=== PATIENT | female | born 1950 | race Caucasian/White ===

== ENCOUNTER 2020-05-29 07:41 | Outpatient (CLI) | payer MEDICARE, SELFPAY ==
--- NOTE | ~2020-05-29 | MM_ITS ---
EXAMINATION: MM screening bertha BI w leeanne HISTORY: Screening TECHNIQUE: Craniocaudal and mediolateral oblique 3-D tomosynthesis images were obtained and synthetic 2-D images were generated. CAD analysis was submitted and interpreted. COMPARISON: Comparison to multiple prior studies sequentially, with oldest reviewed study dated 02/10. BREAST PARENCHYMAL COMPOSITION: There are scattered areas of fibroglandular density. FINDINGS: There is no evidence of suspicious mass, calcification, or architectural distortion to sugg est malignancy in either breast. There has been no suspicious interval change. IMPRESSION: 1. No mammographic evidence of malignancy. 2. Recommend routine screening mammography in one year. BI-RADS Category 1: Negative Reviewed, dictated and finalized at location A. 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
== END 2020-05-29 07:42 | disposition home or self-care (01) ==
LOC: ANHIMG 07:47
PROVIDERS: PCP Nurse Practitioner Adult Health; Visit Provider Nurse Practitioner Adult Health
DX: Z12.31 Encounter for screening mammogram for malignant neoplasm of breast (principal)
CPT/HCPCS: 77063; 77067

== ENCOUNTER 2022-01-01 13:38 | Outpatient (CLI) | payer MEDICARE, SELFPAY ==
--- NOTE | ~2022-01-01 | MM_ITS ---
EXAMINATION: MM screening berhta BI w leeanne HISTORY: Screening mammogram TECHNIQUE: Craniocaudal and mediolateral oblique 3-D tomosynthesis images were obtained and synthetic 2-D images were generated. CAD analysis was submitted and interpreted. COMPARISON: 05/29/2020, 05/06/2019, 04/22/2018 bilateral screening mammogram examinations BREAST PARENCHYMAL COMPOSITION: The breasts are almost entirely fatty. FINDINGS: Scattered bilateral benign calcifications. There is no evidence of suspicious mass, calcifi cation, or architectural distortion to suggest malignancy in either breast. There has been no suspici ous interval change. IMPRESSION: 1. No mammographic evidence of malignancy. 2. Recommend routine screening mammography in one year. BI-RADS Category 1: Negative Reviewed, dictated and finalized at location A.
--- NOTE | ~2022-01-01 | DEXA_ITS ---
Bone Density Report Name: JODY ZACARIAS Age: 71 Sex: Female Ethnicity: White Date of : 1950 Indication: hyperparathyroidism; height loss; hysterectomy; postmenopausal Referring Provider: LACHELLE, KIRA Study: Bone densitometry was performed. Exam Date: January 01, 2022 Accession number: [id number] Bone Density: Region BMD T-score Z-score Classification AP Spine(L1-L4) 1.027 -0.2 2.0 Normal Femoral Neck (Left) 0.728 -1.1 0.8 Osteopenia Total Hip (Left) 0.939 0.0 1.6 Normal Femoral Neck (Right) 0.725 -1.1 0.8 Osteopenia Total Hip (Right) 0.941 0.0 1.6 Normal Total Hip Mean 0.940 0.0 1.6 Normal World Health Organization criteria for BMD impression classify patients as: Normal (T-score at or above -1.0), Osteopenia (T-score between -1.0 and -2.5), or Osteoporosis (T-score at or below -2.5). 10-year Fracture Risk(1): Major Osteoporotic Fracture 8.4% Hip Fracture 0.9% Reported Risk Factors: [place] (), Neck BMD=0.728, BMI=38.2 (1) FRAX(R) Version 3.08. Fracture probability calculated for an untreated patient. Fracture probability may be lower if the patient has received treatment. Clinical Information Provided by Patient: Has used the following medications: Vitamin D, Calcium Has the following medical conditions: Hyperparathyroidism, Hysterectomy Patient maximum height was 66 No regular weight bearing exercise Does not regularly consume dairy products Drinks caffeinated beverages Onset of menses at age 16 Number of children 2 Impression: The patient has low bone mass, based on the Left Femoral Neck T-score. The patient has an estimated ten-year risk of hip fracture of 0.9% and an estimated ten-year risk of major fracture of 8.4%, based on the WHO FRAX algorithm. Discussion: BONE DENSITY IS LOW AT ONE OR MORE SKELETAL SITES. This patient's lowest T-score is low at one or more skeletal sites. It meets the World Health Organization's (WHO) criteria for ?low bone mass? (T-score between -1.0 and -2.5). The patient's 10-year risk of fracture as calculated by FRAX is less than the threshold where pharmacological therapy is recommended by the National Osteoporosis Foundation (NOF). However, all treatment decisions require clinical judgment and consideration of individual patient factors, including patient preferences, comorbidities, previous drug use, risk factors not captured in the FRAX model (e.g., frailty, falls, vitamin D deficiency, increased bone turnover, interval significant decline in bone density) and possible under or overestimation of fracture risk by FRAX. The patient should follow a healthful lifestyle (good nutrition with adequate calcium and vitamin D, and appropriate weight-bearing exercise). Follow-Up: Consider repeating this study in 2 to 3 years to
== END 2022-01-01 13:39 | disposition home or self-care (01) ==
PROVIDERS: PCP Nurse Practitioner Adult Health; Visit Provider Nurse Practitioner Adult Health
DX: Z12.31 Encounter for screening mammogram for malignant neoplasm of breast (principal); Z78.0 Asymptomatic menopausal state; M85.852 Other specified disorders of bone density and structure, left thigh; M85.851 Other specified disorders of bone density and structure, right thigh
CPT/HCPCS: 77063; 77067; 77080

== ENCOUNTER 2023-05-02 14:25 | Outpatient (CLI) | payer MEDICARE, SELFPAY ==
--- NOTE | ~2023-05-02 | MM_ITS ---
EXAMINATION: MM screening bertha BI w leeanne HISTORY: Screening TECHNIQUE: Craniocaudal and mediolateral oblique 3-D tomosynthesis images were obtained and synthetic 2-D images were generated. CAD analysis was submitted and interpreted. COMPARISON: No prior mammogram is available for comparison at this institution. BREAST PARENCHYMAL COMPOSITION: There are scattered areas of fibroglandular density. FINDINGS: There is no evidence of suspicious mass, calcification, or architectural distortion to sugg est malignancy in either breast. There has been no suspicious interval change. IMPRESSION: 1. No mammographic evidence of malignancy. 2. Recommend routine screening mammography in one year. BI-RADS Category 1: Negative Reviewed, dictated and finalized at location A. 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
== END 2023-05-02 14:26 | disposition home or self-care (01) ==
LOC: ANHIMG 14:27
PROVIDERS: PCP Family Medicine; Visit Provider Family Medicine
DX: Z12.31 Encounter for screening mammogram for malignant neoplasm of breast (principal)
CPT/HCPCS: 77063; 77067

== ENCOUNTER 2023-05-15 00:19 | Day surgery (SDC) | payer MEDICARE, SELFPAY ==
[2023-04-23 14:51] VITALS: BMI 37.7
--- NOTE | 2023-05-13 12:07 | SUR.PREOP ---
Patient called regarding upcoming procedure. Reviewed preop instructions, appointment times, and procedure prep.
--- NOTE | 2023-05-14 18:22 | PM.HPGS ---
History of Present Illness History of Present Illness Consent: Risks, benefits, and alternatives have been discussed and questions answered. Patient agrees to proceed with procedure. Chief complaint: hx colon polyps Narrative: Princess Pham is a 72 year old female Referred for colon cancer screening. Her last colonoscopy was 6 years ago at which time 1 small polyp was removed. She had polyps removed prior to that also. Review of Systems Review of Systems: All systems reviewed & are unremarkable except as noted in HPI and below PMFSH Social History Social History Smoking status: Never smoker Alcohol intake: current Alcohol use details: 1 drink monthly Substance use type: does not use Living arrangements: with family Spiritual care concerns: No Meds Home Medications and Allergies Home Medications Medication Instructions Recorded Confirmed Type alirocumab 150 mg/mL subcutaneous 150 mg subcut USEASDIRECTD 04/23/23 05/15/23 History pen injector (Praluent Pen) aspirin 81 mg tablet 81 mg PO DAILY 04/23/23 05/15/23 History benazepril 20 mg tablet 20 mg PO DAILY 04/23/23 05/15/23 History calcium carbonate 600 mg calcium 600 mg PO DAILY 04/23/23 05/15/23 History (1,500 mg) tablet coQ10 (ubiquinol) 200 mg capsule 200 mg PO DAILY 04/23/23 05/15/23 History ketoconazole 2 % topical cream 1 applic topical DAILY PRN Rash 04/23/23 05/15/23 History levothyroxine 100 mcg tablet 100 mcg PO DAILY 04/23/23 05/15/23 History mecobalamin (vitamin B12) 1,000 1,000 mcg PO WEEKLY 04/23/23 05/15/23 History mcg chewable tablet metformin 500 mg tablet,extended 1,000 mg PO BID 04/23/23 05/15/23 History release 24 hr metoprolol tartrate 50 mg tablet 50 mg PO BID 04/23/23 05/15/23 History nystatin 100,000 unit/gram topical 1 applic topical DAILY PRN Rash 04/23/23 05/15/23 History powder semaglutide 0.25 mg or 0.5 mg (2 0.5 mg subcut WEEKLY 04/23/23 05/15/23 History mg/3 mL) subcutaneous pen injector (Ozempic) Allergies Allergy/AdvReac Type Severity Reaction Status Date / Time Wjdimky-PZS-RiK Reductase AdvReac Severe SEVERE LEG Verified 05/15/23 12:19 Inhibitor CRAMPS [Aqihetv-Sqo-Cfr Reductase Inhibitor] exenatide AdvReac Unknown POOR Verified 05/15/23 12:19 APPETITE, NAUSEA Exam Resp: Auscultation: clear to auscultation bilaterally Cardio: Rate: regular rate Rhythm: regular rhythm GI: GI Palp: Yes Soft to palpation and No Tenderness to palpation present (GI) Assessment and Plan Assessment and plan (1) Colon cancer screening: Code(s): Z12.11 - Encounter for screening for malignant neoplasm of colon Status: Acute Assessment and Plan: Colonoscopy with possible biopsy or polypectomy or cautery or injection of substances.
[2023-05-15 12:20] LABS: Glucose Point of Care 119 mg/dl (65-105)
[2023-05-15 12:22] VITALS: BP 165/60; PULSE 72; RESP 18; TEMP 36.8; O2SAT 100; BMI 37.9
--- NOTE | 2023-05-15 12:28 | WPDANESEPPF ---
Anes - Initial Pre Proc Eval Procedure: Operation Date: 05/15/23 13:30 Proposed Procedures p Colonoscopy - Miguel Joyner MD Date/Time: 05/15/23 12:28 Surgeon: Miguel Joyner MD Pre Op Diagnosis: hx colon polyps Patient Data Age: 72 Gender: F Height: 1.65 m Weight: 103.3 kg Last Vital Signs Temp 98.3 F 05/15/23 12:22 Pulse 72 05/15/23 12:22 Resp 18 05/15/23 12:22 BP 165/60 H 05/15/23 12:22 Pulse Ox 100 05/15/23 12:22 O2 Del Method Room Air 05/15/23 12:22 Allergies Allergy/AdvReac Type Severity Reaction Status Date / Time Ddlkfwx-IKC-EcP Reductase AdvReac Severe SEVERE LEG Verified 05/15/23 12:19 Inhibitor CRAMPS [Gujpimg-Zcx-Nyo Reductase Inhibitor] exenatide AdvReac Unknown POOR Verified 05/15/23 12:19 APPETITE, NAUSEA Home Medications Medication Instructions Recorded Confirmed Type alirocumab 150 mg/mL subcutaneous 150 mg subcut USEASDIRECTD 04/23/23 05/15/23 History pen injector (Praluent Pen) aspirin 81 mg tablet 81 mg PO DAILY 04/23/23 05/15/23 History benazepril 20 mg tablet 20 mg PO DAILY 04/23/23 05/15/23 History calcium carbonate 600 mg calcium 600 mg PO DAILY 04/23/23 05/15/23 History (1,500 mg) tablet coQ10 (ubiquinol) 200 mg capsule 200 mg PO DAILY 04/23/23 05/15/23 History ketoconazole 2 % topical cream 1 applic topical DAILY PRN Rash 04/23/23 05/15/23 History levothyroxine 100 mcg tablet 100 mcg PO DAILY 04/23/23 05/15/23 History mecobalamin (vitamin B12) 1,000 1,000 mcg PO WEEKLY 04/23/23 05/15/23 History mcg chewable tablet metformin 500 mg tablet,extended 1,000 mg PO BID 04/23/23 05/15/23 History release 24 hr metoprolol tartrate 50 mg tablet 50 mg PO BID 04/23/23 05/15/23 History nystatin 100,000 unit/gram topical 1 applic topical DAILY PRN Rash 04/23/23 05/15/23 History powder semaglutide 0.25 mg or 0.5 mg (2 0.5 mg subcut WEEKLY 04/23/23 05/15/23 History mg/3 mL) subcutaneous pen injector (Ozempic) Laboratory Tests 05/15/23 12:17 POC Capillary Glucose 119 H mg/dl (65-105) Patient hx anesthesia problems: none Family hx anesthesia problems: none Results Review: All pre-operative results and documents have been reviewed as part of the pre-operative evaluation. [facility] Social History Social History Smoking status: Never smoker Alcohol intake: current Alcohol use details: 1 drink monthly Substance use type: does not use Living arrangements: with family Spiritual care concerns: No Anes - Eval Final PreProcedure Day of Procedure 05/15/23 12:28 Patient weight: obese Heart: regular rate and rhythm Lungs: clear to auscultation Airway: Mallampati scale class III Neurological: alert and oriented Last oral intake: >/= 8 hours ASA classification: III Emergent: no Anesthetic plan: proceed Anesthesia type and monitoring: general GIVS and standard monitoring Results Review: All pre-operative results and documents have been reviewed as part of the pre-operative evaluation. Informed Consent: The patient's anesthetic plan and its attendant risks and benefits were discussed with the patient/family/POA. Questions were solicited and answers provided to the satisfaction of the patient/family/POA.
[2023-05-15] MEDS: LACTATED RINGERS 1,000 ML 150 ML IV CONT (12:33)
[2023-05-15 13:28] VITALS: BP 90/42; PULSE 73; RESP 23; O2SAT 98
[2023-05-15 13:38] VITALS: BP 101/46; PULSE 72; RESP 22; O2SAT 100
[2023-05-15 13:48] VITALS: BP 120/58; PULSE 74; RESP 22; O2SAT 100
== END 2023-05-15 13:52 | disposition home or self-care (01) ==
PROVIDERS: PCP Family Medicine; Visit Provider Internal Medicine Gastroenterology
PROC: 0DJD8ZZ Inspection of Lower Intestinal Tract, Via Natural or Artificial Opening Endoscopic (ICD-10-PCS; CPT 45378; principal; 2023-05-15 13:30)
DX: Z12.11 Encounter for screening for malignant neoplasm of colon (principal); K63.5 Polyp of colon; E66.9 Obesity, unspecified; Z68.37 Body mass index [BMI] 37.0-37.9, adult; Z79.85 Long-term (current) use of injectable non-insulin antidiabetic drugs; Z79.82 Long term (current) use of aspirin; Z79.84 Long term (current) use of oral hypoglycemic drugs
CPT/HCPCS: 45385; 82948; 88305; J2704; J7120

== ENCOUNTER 2024-03-18 10:07 | Outpatient (CLI) | payer MEDICARE, SELFPAY ==
--- NOTE | ~2024-03-18 | DEXA_ITS ---
Bone Density Report Name: JODY ZACARIAS Age: 73 Sex: Female Ethnicity: White Date of : 1950 Indication: hyperparathyroidism; cancer; hysterectomy; Referring Provider: CARLOS ALBERTO, MARIANNE Med[place] Study: Bone densitometry was performed. Exam Date: March 18, 2024 Accession number: [id number] Bone Density: Region BMD T-score Z-score Classification AP Spine(L1-L4) 1.043 0.0 2.3 Normal Femoral Neck (Left) 0.725 -1.1 0.9 Osteopenia Total Hip (Left) 0.933 -0.1 1.6 Normal Femoral Neck (Right) 0.714 -1.2 0.8 Osteopenia Total Hip (Right) 0.942 0.0 1.7 Normal Femoral Neck Mean 0.719 -1.2 0.8 Osteopenia Total Hip Mean 0.937 0.0 1.7 Normal World Health Organization criteria for BMD impression classify patients as: Normal (T-score at or above -1.0), Osteopenia (T-score between -1.0 and -2.5), or Osteoporosis (T-score at or below -2.5). 10-year Fracture Risk(1): Major Osteoporotic Fracture 9.1% Hip Fracture 1.3% Reported Risk Factors: [place] (), Neck BMD=0.714, BMI=37.7 (1) FRAX(R) Version 3.08. Fracture probability calculated for an untreated patient. Fracture probability may be lower if the patient has received treatment. Clinical Information Provided by Patient: Has used the following medications: HRT (i.e. estrogen/hormone therapy), Vitamin D, Calcium Has the following medical conditions: Cancer, Hyperparathyroidism, Hysterectomy Patient maximum height was 66 Menopause Age: 50 No regular weight bearing exercise Does not regularly consume dairy products Drinks caffeinated beverages Onset of menses at age 13 Number of children 2 Missed period for more than 6 months in a row Impression: The patient has low bone mass, based on the Right Femoral Neck T-score. Discussion: BONE DENSITY IS LOW AT ONE OR MORE SKELETAL SITES. This patient's lowest T-score is low at one or more skeletal sites. It meets the World Health Organization's (WHO) criteria for ?low bone mass? (T-score between -1.0 and -2.5). The patient's 10-year risk of fracture as calculated by FRAX is less than the threshold where pharmacological therapy is recommended by the National Osteoporosis Foundation (NOF). However, all treatment decisions require clinical judgment and consideration of individual patient factors, including patient preferences, comorbidities, previous drug use, risk factors not captured in the FRAX model (e.g., frailty, falls, vitamin D deficiency, increased bone turnover, interval significant decline in bone density) and possible under or overestimation of fracture risk by FRAX. The patient should follow a healthful lifestyle (good nutrition with adequate calcium and vitamin D, and appropriate weight-bearing exercise). Follow-Up: Consider repeating this study in 2 to 3 years to reassess this patient's status, or sooner if there is some new clinical indication. Reported by: RICHAR on 03/18/2024 10:32:00 AM. Reviewed, dictated and finalized at location A.
== END 2024-03-18 10:08 | disposition home or self-care (01) ==
LOC: CHSIMG 10:09
PROVIDERS: PCP Nurse Practitioner Adult Health; Visit Provider Family Medicine
DX: Z78.0 Asymptomatic menopausal state (principal); M85.89 Other specified disorders of bone density and structure, multiple sites
CPT/HCPCS: 77080

== ENCOUNTER 2024-07-26 09:29 | Outpatient (CLI) | payer MEDICARE, SELFPAY ==
--- NOTE | ~2024-07-26 | MM_ITS ---
CORRECTED REPORT examination description corrected G 07/27/24 This report was recreated on 07/27/24. Original report was INATION: MM screening mammo BI w DARIN HISTORY: Screening mammogram TECHNIQUE: Craniocaudal and mediolateral oblique 3-D tomosynthesis images were obtained and synthetic 2-D images were generated. CAD analysis was submitted and interpreted. COMPARISON: 05/02/2023, 01/01/2022, 05/29/2020 BREAST PARENCHYMAL COMPOSITION:Not Dense. The breasts are almost entirely fatty FINDINGS: No suspicious mass, calcification, or architectural distortion are identified in either breast to suggest malignancy. There has been no suspicious interval change. IMPRESSION: No mammographic evidence of malignancy. Recommend routine screening mammography in one year. BI-RADS Category 1: Negative Reviewed, dictated and finalized at location . MTDD
--- OUTSIDE RECORDS SUMMARY | 2024-07-26 10:43 | XMS_ITS | Clinical Summary ---
Author Organization [facility] Address [address] [place] [address] Care Team Providers Care Feeder Operator Automatic Name Role Phone Edward Floresita KALIA Primary Care Provider [phone] Antonia Contreras MD Unavailable Priscila Carey NP Unavailable [phone] Allergies Active Allergy Reactions Criticality Noted Date Comments Exenatide Nausea only Low Exenatide Microspheres Nausea only Low 12/10/2016 Qrcpfaq-Qfk-Axi Reductase Inhibitors Nausea only Low 12/10/2016 Other reaction(s): Myalgias (Muscle Pain) Medications coenzyme Q10 (CO Q-10) 200 mg capsule take one by oral route one time every day 0 08/07/19 13 Active ketoconazole (NIZORAL) 2 % cream apply by topical route every day to the affected area(s) 0 0 03/10/20 13 Active aspirin 81 mg tablet Take according to [id number] package directions 0 0 07/20/19 08 Active Ca carb-D3-mag [id number] (CALTRATE + D3 PLUS MINERALS) 300 mg-800 unit -25 mg-0.5 mg tablet 0 0 06/12/19 17 Active metoprolol (LOPRESSOR) 25 mg tablet Take 2 tablets (50 mg total) by mouth 2 (two) times a day 12 01/14/20 19 Active nitroglycerin (NITROSTAT) 0.[address] one tablet under tongue as needed for chest pain every 5 minutes for 3 total doses. If no relief after 3rd dose, GO TO ED 1 02/12/20 19 Active cyanocobalamin (Vitamin B-12) 1,000 mcg tabletIndication s:Prevention of Vitamin B12 Deficiency Take 100 mcg by mouth once a week Active oxybutynin XL (DITROPAN-XL) 5 mg 24 hr tablet Take 1 tablet (5 mg total) by mouth daily 11/28/19 22 Active metoprolol tartrate (LOPRESSOR) 50 mg immediate release tablet Take 1 tablet (50 mg total) by mouth 2 (two) times a day 10/18/19 22 Active hydrocortisone (ANUSOL-HC) 2.5 % rectal cream 07/25/19 23 Active omeprazole (PriLOSEC) 40 mg capsule Take by mouth daily 07/26/19 23 Active blood glucose diagnostic stripIndications :Type 2 diabetes mellitus with hyperglycemia, with long-term current use of insulin ([facility]) USE WITH METER TO TEST TWO TIMES DAILY 200 each 3 08/27/19 23 Active lancets (Ubalo DelFileString Plus Lancet) 30 gauge miscIndications: Type 2 diabetes mellitus with hyperglycemia, with long-term current use of insulin ([facility]) Check CBG BID 200 each 3 08/27/19 23 Active Praluent Pen 150 mg/mL pen injector INJECT 1 PEN UNDER THE SKIN ONCE EVERY 2 WEEKS 02/11/20 23 Active benzonatate (TESSALON) 100 mg capsule Active influenza quadrivalent 3350-3086 (Fluad Quad 2020-21,65y up,,PF,) 60 mcg (15 mcg x 4)/0.5 mL syringe Active coenzyme [id number] (Co Q-10, with Vit E,) 100-5 mg-unit capsule Co Q-10 (with Vit E) 100-5 mg-unit capsule Active benazepriL (LOTENSIN) 20 mg tablet Take 1 tablet (20 mg total) by mouth daily 90 tablet 3 09/22/19 24 Active semaglutide (OZEMPIC) 1 mg/dose (4 mg/3 mL) pen injector injection Inject 1 mg under the skin once a week 9 mL 2 02/26/20 24 Active metFORMIN XR (GLUCOPHAGE XR) 500 mg 24 hr tabletIndication s:Type 2 diabetes mellitus with hyperglycemia, with long-term current use of insulin ([facility]) TAKE 2 TABLETS TWICE A DAY 360 tablet 3 07/20/19 25 Active levothyroxine (SYNTHROID) 100 mcg tabletIndication s:Type 2 diabetes mellitus with hyperglycemia, with long-term current use of insulin ([facility]CC) TAKE 1 TABLET EARLY MORNINGBEFORE BREAKFAST 90 tablet 3 07/20/19 25 Active levothyroxine (SYNTHROID) 100 mcg tablet Take 1 tablet (100 mcg total) by mouth sports marketing specialist before breakfast 90 tablet 3 07/20/19 25 Active metFORMIN XR (GLUCOPHAGE XR) 500 mg 24 hr tabletIndication s:Type 2 diabetes mellitus with hyperglycemia, with long-term current use of insulin (HCC) Take 2 tablets (1,000 mg total) by mouth 2 (two) times a day 360 tablet 3 07/20/19 25 Active metFORMIN XR (GLUCOPHAGE XR) 500 mg 24 hr tabletIndication s:Type 2 diabetes mellitus with hyperglycemia, with long-term current use of insulin (HCC) Take 2 tablets (1,000 mg total) by mouth 2 (two) times a day 360 tablet 3 08/11/19 24 025 Discontin ued(Reord er) levothyroxine (SYNTHROID) 100 mcg tablet Take 1 tablet (100 mcg total) by mouth sports marketing specialist before breakfast 90 tablet 3 09/22/19 24 025 Discontin ued(Reord er) Active Problems Problem Noted Date Diagnosed Date Morbid (severe) obesity due to excess calories 0 01/10/2022 Assessment & Plan (01/10/2022 10:18 AM CDT): Chronic problem, work on diet and exercise. Hyperlipidemia associated with type 2 diabetes marylu guzman 08/26/2017 Assessment & Plan (02/26/2024 5:46 PM CDT): Chronic, stable.. Update lipid profile c patient can not tolerate statin therapy, Continue Praluent Assessment & Plan (02/11/2023 9:20 AM CDT): Chronic problem. Statin intolerance. Currently taking Statin intolerance, Repatha 140mg q2wks. Last lipid panel: 07/24/21 LDL=14, OY=894. Will update lipid panel today. Verified that she uses [employer]. Aware to check results/results letter in [employer]. Will contact by phone if needed. Assessment & Plan (08/06/2022 1:41 PM CDT): Diet and exercise Very well controlled Continue Repatha Assessment & Plan (01/10/2022 10:04 AM CDT): Chronic problem. On PCSK9i therapy (intolerant of statins), no changes. Assessment & Plan (07/24/2021 1:47 PM GRIEVANCE MANAGER): Chronic, well controlled Continue current meds Check lipids Assessment & Plan (11/21/2020 1:36 PM CDT): Goal of treatment , LDL cholesterol less than 100 ( less than 70 in patients with history of heart attacks and / or strokes ) NonHDL cholesterol ( total cholesterol minus HDL cholesterol ) goal less than 130 ( less than 100 in patients with history of heart attacks and / or strokes ) Low cholesterol, low fat diet was discussed and advised. Daily exercise On Repatha Assessment & Plan (06/06/2020 1:33 PM GRIEVANCE MANAGER): Goal of treatment , LDL cholesterol less than 100 ( less than 70 in patients with history of heart attacks and / or strokes ) NonHDL cholesterol ( total cholesterol minus HDL cholesterol ) goal less than 130 ( less than 100 in patients with history of heart attacks and / or strokes ) Low cholesterol, low fat diet was discussed and advised. Daily exercise On Repatha Assessment & Plan (11/30/2019 3:42 PM CDT): Goal of treatment , LDL cholesterol less than 100 ( less than 70 in patients with history of heart attacks and / or strokes ) NonHDL cholesterol ( total cholesterol minus HDL cholesterol ) goal less than 130 ( less than 100 in patients with history of heart attacks and / or strokes ) Low cholesterol, low fat diet was discussed and advised. Daily exercise On Repetha Assessment & Plan (07/29/2019 12:26 PM CDT): Goal of treatment , LDL cholesterol less than 100 ( less than 70 in patients with history of heart attacks and / or strokes ) NonHDL cholesterol ( total cholesterol minus HDL cholesterol ) goal less than 130 ( less than 100 in patients with history of heart attacks and / or strokes ) Low cholesterol, low fat diet was discussed and advised. Daily exercise On Repatha Assessment & Plan (02/18/2019 10:39 AM CDT): Continue Repatha and follow up with cardiology Assessment & Plan (10/29/2018 10:53 AM CDT): Goal of treatment , LDL cholesterol less than 100 ( less than 70 in patients with history of heart attacks and / or strokes ) NonHDL cholesterol ( total cholesterol minus HDL cholesterol ) goal less than 130 ( less than 100 in patients with history of heart attacks and / or strokes ) Low cholesterol, low fat diet was discussed and advised. Daily exercise On statin therapy Assessment & Plan (07/30/2018 10:04 AM CDT): Will check lipid panel Assessment & Plan (05/05/2018 2:45 PM GRIEVANCE MANAGER): Per cardiology Assessment & Plan (01/13/2018 1:49 PM CDT): Goal of treatment , LDL cholesterol less than 100 ( less than 70 in patients with history of heart attacks and / or strokes ) NonHDL cholesterol ( total cholesterol minus HDL cholesterol ) goal less than 130 ( less than 100 in patients with history of heart attacks and / or strokes ) Low cholesterol, low fat diet was discussed and advised. Daily exercise On statin therapy Assessment & Plan (08/26/2017 1:29 PM CDT): Goal of treatment , LDL cholesterol less than 100 ( less than 70 in patients with history of heart attacks and / or strokes ) NonHDL cholesterol ( total cholesterol minus HDL cholesterol ) goal less than 130 ( less than 100 in patients with history of heart attacks and / or strokes ) Low cholesterol, low fat diet was discussed and advised. Daily exercise On Repatha BMI 40.0-44.9, adult 08/26/2017 Assessment & Plan (07/30/2018 10:04 AM CDT): Continue reduced portions Morbid obesity 08/26/2017 Assessment & Plan (05/05/2018 2:44 PM GRIEVANCE MANAGER): Importance of following diet and exercising discussed. Type 2 diabetes mellitus 08/23/2013 Overview (08/23/2016): DMII WO CMP UNCNTRLD Assessment & Plan (02/26/2024 5:45 PM CDT): Chronic, stable. Importance of diet and exercise was discussed Continue glimepiride 1 mg weekly Assessment & Plan (07/29/2023 1:11 PM CDT): Chronic, with side effects from Jardiance . Jardiance Increase Ozempic to 1 mg weekly Continue metformin Low carb diet and exercise recommend Assessment & Plan (02/11/2023 9:23 AM CDT): Chronic problem. Well controlled wo hypoglycemia. A1c 6.5%. Current medications: Metformin XR 1000mg twice daily Jardiance 25mg daily Ozempic 0.5mg weekly Will update labs today. Verified that she uses [employer]. Aware to check results/results letter in [employer]. Will contact by phone if needed. Had DM eye exam earlier this year at [facility] in [place]; letter sent to get copy of report. Strive for regular exercise (30min most days) and diet (get at least 4-5 servings of fruit and veggies daily, avoid processed foods, increase lean protein intake and decrease carb portions as well as fruit juices, regular soda & desserts). Watch carbs and simple sugars. Check the blood sugar daily. Check the feet daily for skin breakdown and infection. Assessment & Plan (08/06/2022 1:40 PM CDT): Hba1c was Lab Results Component Value Date HGBA1C 6.8 08/06/2022 today, indicating adequate DM control Goal Hba1c and blood glucose explained Diet and exercise were advised Prevention and treatment of hyypoglcyemia were discussed with the patient Blood glucose monitoring : 2 x day Adjustment to medications: Continue Ozempic ( rx sent ) Increase Jardiance, 25 mg daily Continue Metformin Assessment & Plan (01/10/2022 10:18 AM CDT): Chronic stable problem. No medication changes. Assessment & Plan (07/24/2021 1:48 PM GRIEVANCE MANAGER): Hba1c was Lab Results Component Value Date HGBA1C 6.0 07/24/2021 today, indicating adequate DM control Goal Hba1c and blood glucose explained Diet and exercise were advised Prevention and treatment of hyypoglcyemia were discussed with the patient Blood glucose monitoring : 1-2 x wk Adjustment to medications: continue current Assessment & Plan (11/21/2020 1:37 PM CDT): Hba1c was Lab Results Component Value Date HGBA1C 6.1 (A) 11/21/2020 today, indicating adequate DM control Goals blood sugars of 120-160 and Hba1c under 7 % was explained. 1800 calorie, consistent carb diet recommended, no more than 3-45 grams of carbs per meal, avoiding concentrated sweet drinks and rapid absorption carbs. 25-45 min daily aerobic and resistance exercise recommended Prevention and treatment of hyypoglcyemia discussed. Blood glucose monitoring with fingers sticks. continue current regimen Assessment & Plan (06/06/2020 1:32 PM GRIEVANCE MANAGER): Hba1c was Lab Results Component Value Date HGBA1C 5.9 06/06/2020 today, indicating adequate DM control Goals blood sugars of 120-160 and Hba1c under 7 % was explained. 1800 calorie, consistent carb diet recommended, no more than 3-45 grams of carbs per meal, avoiding concentrated sweet drinks and rapid absorption carbs. 25-45 min daily aerobic and resistance exercise recommended Prevention and treatment of hyypoglcyemia discussed. Blood glucose monitoring with fingers sticks. Continue current regimen Assessment & Plan (11/30/2019 3:43 PM CDT): Hba1c was Lab Results Component Value Date HGBA1C 5.9 11/30/2019 today, indicating adequate DM control 1800 calorie, consistent carb diet recommended. No more than 30-45 grams of carbs per meal recommended, as well as avoiding high concentrated sweet drinks . 25-45 min daily exercise, combining both aerobic and resistance exercise recommended. The need to monitor blood glucose 1-2 x day was explained. Prevention and treatment of hyypoglcyemia discussed. Insulin dose: D/c Lantus Continue Jardiance and Ozempic Assessment & Plan (07/29/2019 12:25 PM CDT): Hba1c was Lab Results Component Value Date HGBA1C 6.2 07/29/2019 today, indicating adequate DM control 1800 calorie, consistent carb diet recommended. No more than 30-45 grams of carbs per meal recommended, as well as avoiding high concentrated sweet drinks . 25-45 min daily exercise, combining both aerobic and resistance exercise recommended. The need to monitor blood glucose before meals and bedtime was discussed. Prevention and treatment of hyypoglcyemia discussed. Insulin dose: Lower Lantus to 15 units Assessment & Plan (02/18/2019 10:40 AM CDT): A1c 6.0. Continue with current DM medication plan and doses. BG goals reviewed. Encouraged to focus on diet and exercise over upcoming holidays. Follow up in July once back from [place]. Assessment & Plan (10/29/2018 10:53 AM CDT): Your Hba1c today was: Lab Results Component Value Date HGBA1C 5.8 % 10/29/2018 meaning a 3 month average sugar of : 107 Your goal hba1c is under 7.0 to prevent exterminator diabetes complications ( eye , kidney and nerve damage ) . Your goal sugars are in the 90-130 range Exercise recommendations: It is recommended that you do daily aerobic ( walking, riding a bike, swimming ) and resistance exercises ( light weight lifting, resistance band stretching ) for at least 30 minutes , most days of the week. If you can not walk, chair exercises for 10-15 min a day would help tremendously. As little as 15-20 minutes exercise , in one or two sessions a day, is still very helpful to improve your diabetes control . Diet recommendations: Eat small portion meals, trying not to consume more than 1800 calories a day . Try to eat not more than than 2 servings of carbs ( starches ) wiith your meals. Avoid soft drinks, including regular sodas , fruit juices and sweetened tea. Drink water instead. Eat plenty of green and leafy vegetables, including salads. Medications: Take your medications regularly. Setting phone alarms can help . Keep your medication on the kitchen dinner table, by the bedside table or by the sink where they are visible to you. If you are taking insulin : the insulin that you are currently using does not need to be refrigerated. Keep it where you can see it . Monitor your sugar levels with finger sticks regularly and keep a log sheet or book. Bring your sugar meter and /or a log book or log sheet to every office visit. Lower Lantus to 20 units once a day Stay on Ozempic, 0.25 mg weekly Continue Jardiance and Metformin. Assessment & Plan (07/30/2018 10:10 AM CDT): A1c 6.4. Doing well on Ozempic. Continue at 0.5.Reduce Lantus to 35 units. Will adjust dose based on FBG. If lows during the day, will consider trial off glimepiride. BG goals reviewed. Advised to schedule eye exam. Assessment & Plan (05/05/2018 2:48 PM GRIEVANCE MANAGER): A1c 7.3. Continue with same medication. Focus on diet and exercise. She would like to try GLP 1 again. Provided with sample of Ozempic. Start at 0.25 for one month, then increase to 0.5. Assessment & Plan (01/13/2018 1:34 PM CDT): Your Hba1c today was: Lab Results Component Value Date HGBA1C 8.2 01/13/2018 meaning a 3 month average sugar of : 187 Your goal hba1c is under 7.0 to prevent nursing home diabetes complications ( eye , kidney and nerve damage ) . Your goal sugars are in the 90-130 range Daily aerobic ( walking, riding a bike, swimming ) and resistance exercises ( light weight lifting, resistance band stretching ) for at least 30 minutes is recommended If you can not walk, chair exercises is very acceptable. As little as 15-20 minutes exercise , in one or two sessions a day, is still very helpful and will help to improve your diabetes control . Eat small portion meals, no more than 1800 calories Diet Try to eat not more than than 2-3 servings of carbs ( starches ) wiith your meals. Avoid soft drinks, including regular sodas , fruit juices and sweetened tea. Drink water instead. Eat plenty of green and leafy vegetables, including salads. Take your medications regularly,including your insulin injections. Monitor your sugar levels with finger sticks regularly and keep a log sheet or book. Bring your sugar meter and /or a log book or log sheet to every office visit. Increase Lantus to 40 units Take the Amaryl in the mornings. Assessment & Plan (08/26/2017 1:27 PM CDT): Your Hba1c today was: Lab Results Component Value Date HGBA1C 7.9 08/26/2017 meaning a 3 month average sugar of : 177 Your goal hba1c is under 7.0 to prevent nursing home diabetes complications ( eye , kidney and nerve damage ) . Your goal sugars are in the 90-130 range Daily aerobic ( walking, riding a bike, swimming ) and resistance exercises ( light weight lifting, resistance band stretching ) for at least 30 minutes is recommended If you can not walk, chair exercises is very acceptable. As little as 15-20 minutes exercise , in one or two sessions a day, is still very helpful and will help to improve your diabetes control . Eat small portion meals, no more than 1800 calories Diet Try to eat not more than than 2-3 servings of carbs ( starches ) wiith your meals. Avoid soft drinks, including regular sodas , fruit juices and sweetened tea. Drink water instead. Eat plenty of green and leafy vegetables, including salads. Take your medications regularly,including your insulin injections. Monitor your sugar levels with finger sticks regularly and keep a log sheet or book. Bring your sugar meter and /or a log book or log sheet to every office visit. Assessment & Plan (04/22/2017 11:45 AM GRIEVANCE MANAGER): Hba1c was 7.8 today, indicating suboptimal DM control 1800 calorie, consistent carb diet recommended 30 min daily aerobic and resistance exercise recommended Prevention and treatment of hyypoglcyemia discussed. Blood glucose monitoring with fingers sticks 1-2 x day . Foot care was discussed. Assessment & Plan (12/10/2016 9:59 AM CDT): Hba1c was 7.4 today, indicating adequate DM control 1800 calorie, consistent carb diet recommended 30 min daily aerobic and resistance exercise recommended Foot care discused. Prevention and treatment of hyypoglcyemia discussed. Hypothyroidism 06/21/2013 Overview (08/23/2016): HYPOTHYROIDISM NOS Assessment & Plan (07/29/2023 1:11 PM CDT): Chronic, well-controlled Continue LT4 therapy with Synthroid 100 mcg daily Assessment & Plan (02/11/2023 9:20 AM CDT): Chronic problem. Currently taking levothyroxine 100mcg daily. Will update TFTs today. Verified that she uses [employer]. Aware to check results/results letter in [employer]. Will contact by phone if needed. Assessment & Plan (08/06/2022 1:42 PM CDT): Chronic, well controlled Continue Levothyroxine Assessment & Plan (02/18/2019 10:39 AM CDT): Clinically and biochemically euthyroid. Continue current dose LT4 replacement. Assessment & Plan (07/30/2018 10:04 AM CDT): Continue on current dose of thyroid replacement hormone. Assessment & Plan (05/05/2018 2:45 PM GRIEVANCE MANAGER): Will check TFTs Assessment & Plan (12/10/2016 9:58 AM CDT): Your goal of treatment is to keep TSH and free T4 within normal range. Take your thyroid medication on empty stomach, preferably in the morning, 1 hour apart from food and other medications. Due to the narrow therapeutic range of Levothyroxine ( small changes in dose make a big difference on thyroid medication blood levels ) , brand name is strongly recommended. The medication should be taken daily. If one or more pills are missing in a week, they can be taken all together at once, making sure at the end of the week, all 7 tabs have been taken. Hypertension associated with diabetes 02/04/2012 Overview (08/23/2016): Unspecified essential hypertension Assessment & Plan (02/26/2024 5:45 PM CDT): Chronic, stable. Update GFR and microalbumin. Continue benazepril Assessment & Plan (02/11/2023 9:20 AM CDT): Chronic problem. Controlled on current Benazepril 20mg daily, metoprolol tartrate 50mg bid Will update labs. Verified that she uses [employer]. Aware to check results/results letter in [employer]. Will contact by phone if needed. Assessment & Plan (08/06/2022 1:41 PM CDT): Chronic, well controlled Importance of low salt diet and exercise were discussed Continue current meds, including Benazepril Assessment & Plan (01/10/2022 10:03 AM CDT): Controlled on current medications, no changes. Assessment & Plan (07/24/2021 1:47 PM GRIEVANCE MANAGER): Chronic, well controlled Continue current meds Assessment & Plan (11/21/2020 1:37 PM CDT): Goal blood pressure is less than 140/85 Low salt diet was discussed andd recommended The importance of daily aerobic exercise was also emphasized. Continue current meds, including RAFA-I or ARB, e.g. Benazepril Check microalbumin Assessment & Plan (06/06/2020 1:33 PM GRIEVANCE MANAGER): Goal blood pressure is less than 140/85 Low salt diet was discussed andd recommended The importance of daily aerobic exercise was also emphasized. Continue current meds, including RAFA-I or ARB, e.g. with Benazepril Assessment & Plan (11/30/2019 3:44 PM CDT): Goal blood pressure is less than 140/85 Low salt diet recommended Daily aerobic exercise Continue current meds, including RAFA-I or ARB, with Benazepril Assessment & Plan (07/29/2019 12:25 PM CDT): Goal blood pressure is less than 140/85 Low salt diet recommended Daily aerobic exercise Continue current meds, including RAFA-I or ARB Assessment & Plan (02/18/2019 10:39 AM CDT): Controlled on current medications. Continue plan. Assessment & Plan (07/30/2018 10:04 AM CDT): Controlled on current medications. Assessment & Plan (05/05/2018 2:45 PM GRIEVANCE MANAGER): Controlled on current medications. Assessment & Plan (01/13/2018 1:48 PM CDT): Goal blood pressure is less than 140/85 Low salt diet recommended Daily aerobic exercise Continue current meds, including RAFA-I or ARB Assessment & Plan (08/26/2017 1:30 PM CDT): Goal blood pressure is less than 140/85 Low salt diet recommended Daily aerobic exercise Continue current meds, including RAFA-I or ARB Assessment & Plan (04/22/2017 11:46 AM GRIEVANCE MANAGER): Goal blood pressure is less than 140/85 Low salt diet recommended Daily aerobic exercise Continue current meds, including RAFA-I or ARB Check microalbumin Assessment & Plan (12/10/2016 9:59 AM CDT): Goal blood pressure is less than 140/85 Low salt diet recommended Daily aerobic exercise Continue current meds, including RAFA-I or ARB Resolved Problems Problem Noted Date Diagnosed Date Resolved Date Hyperlipidemia 12/08/2012 02/10/2023 Overview (08/23/2016): HYPERLIPIDEMIA NEC/NOS Assessment & Plan (04/22/2017 11:46 AM GRIEVANCE MANAGER): Goal of treatment , LDL cholesterol less than 70 NonHDL cholesterol goal less than 100 Assessment & Plan (12/10/2016 9:59 AM CDT): Goal of treatment , LDL cholesterol less than 100 ( less than 70 in patients with history of heart attacks and / or strokes ) NonHDL cholesterol goal less than 130 / 100 Lipids at goal. Continue Repatha Low cholesterol diet, exercise advised. Encounters Date Type Department Care Team Description 07/19/2024 Telephone [facility] [address], [place] [address] Antonia Contreras MD from Last 3 Months Immunizations Immunization Administration Dates Next Due COVID-19 mRNA (PFIZER) 0.3 m L (30 mcg) vaccine (12 years and up) 02/03/2023 Pfizer SARS-CoV-2 Monovalent Vaccination (12+ Yrs) PURPLE 02/20/2021,08/09/2020,07/18/2020 Surgical History Surgery Date Site/Laterality Comments HYSTERECTOMY Hysterectomy OTHER SURGICAL HISTORY 2011 percutaneous transluminal balloon angioplasty with insertion of stent into coronary artery Medical History Medical History Date Comments Hx Other Medical parathyroid deonte angelina Disorder of thyroid Thyroid dise ase Diabetes mellitus (HCC) Diabetes Hypertension Hypertension CAD (coronary artery disease) Family History Medical History Relation Name Comments Diabetes type II Other Family hist ory of Diabetes -Type II; Relation Name Status Comments Other Social History Tobacco Use Types Packs/Day Years Used Date Smoking Tobacco: Never Smokeless Tobacco: Never Tobacco Cessation:Counseling Given: Not Answered Alcohol Use Standard Drinks/Week Comments Yes 0 (1 standard drink = 0.6 oz pur e alcohol) AUDIT-C Answer Date Recorded Q1: How often do you have a drink containing alcohol? Never 02/26/2024 Q2: How many drinks containi ng alcohol do you have on a typical day when you are drinking? Patient does not drink Q3: How often do you have si x or more drinks on one occasion? 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 MANAGER Gender Identity Female 06/05/2020 5:19 PM GRIEVANCE MANAGER Sexual Orientation Straight 06/05/2020 5: 19 PM GRIEVANCE MANAGER Obstetrics History Last Filed Vital Signs Vital Sign Reading Time Taken Comments Blood Pressure 120/70 02/26/2024 2:10 PM CDT Pulse 74 02/26/2024 2:10 PM CDT Temperature 37.2 C (99 F) 02/26/2024 2:10 PM CDT Respiratory Rate 18 02/26/2024 2:10 PM CDT Oxygen Saturation - - Inhaled Oxygen Concentration - - Weight 100.3 kg (221 lb 1.6 oz) 02/26/2024 2:10 PM CDT Height 165.1 cm (5' 5 ) 02/26/2024 2:10 PM CDT Body Mass Index 36.79 02/26/2024 2:10 PM CDT Plan of Treatment Health Maintenance Due Date Last Done Comments Breast Cancer Screening-Mammogram 1950 Colon Cancer Screening-Colonoscopy 1950 Hepatitis C Screening 1950 Osteoporosis Screening-Bone Density Scan 1950 Well Visit 65+ 09/04/2015 Foot Exam 08/07/2023 08/06/2022, 12/18, 07/24/2021, Additional history exists Covid-19 Vaccine (2023-2 5 season) 2024 02/03/2023, 02/20/2021, 08/09/2020, Additional history exists Influenza Vaccine (#1) 2024 , 03/27/2020, 02/28/2018, Additional history exists Hemoglobin A1C 08/26/2024 02/26/2024, 07/17, 02/11/2023, Additional history exists Dilated Eye Exam 10/13/2024 10/14/2023, , 03/31/2020, Additional history exists Albumin Creatinine Ratio, Urine 02/25/2025 02/26/2024, 02/11/2023, 09/25/2021, Additional history exists Depression Screening 02/25/2025 02/26/2024, 02/26/2024, 07/24/2021, Additional history exists Fall Risk Assessment 02/25/2025 02/26/2024 Lipid Panel 02/25/2025 02/26/2024, 01/18, 07/24/2021, Additional history exists eGFR 02/25/2025 02/26/2024, 01/18, 09/25/2021, Additional history exists DTaP/Tdap/Td Vaccine (3 - Td or Tdap) 09/15/2028 09/15/2018, 11/20/2010 Zoster Vaccine Completed 11/30/2018, 08/17, 11/20/2010 Hepatitis B Screening Completed 04/27/2019 , 11/30/2018, 10/26/2018 Pneumococcal vaccine 65+ Completed 021, 05/17/2016, 03/04/2012 Procedures Procedure Name Priority Date/Time Associated Diagnosis Comments EGFR Routine 02/26/2024 2:59 PM CDT Type 2 diabetes mellitus with hyperglycemia, with long-term current use of insulin (HCC) LIPID PANEL Routine 02/26/2024 2:59 PM CDT Type 2 diabetes mellitus with hyperglycemia, with long-term current use of insulin (HCC) ALBUMIN CREATININE RATIO, URINE Routine 02/26/2024 2:59 PM CDT Type 2 diabetes mellitus with hyperglycemia, with long-term current use of insulin (HCC) POCT HEMOGLOBIN A1C Routine 02/26/2024 2 :13 PM CDT Type 2 diabetes mellitus with hyperglycemia, with long-term current use of insulin (HCC) HM DIABETES EYE EXAM Routine 10/14/2023 10:50 AM CDT from Last 3 Months or Most Recently Relevant to Health Maintenance Results * eGFR (02/26/2024 2:59 PM CDT) eGFR 65 >=60 mL/min/1. 73 m2 Comment: Interpretive Data Reference Interval Normal >/= 90 mL/min/1.73m2 Mildly decreased* 60 - 89 mL/min/1.73m2 Mildly to moderately decreased 45 - 59 mL/min/1.73m2 Moderately to severely decreased 30 - 44 mL/min/1.73m2 Severely decreased 15 - 29 mL/min/1.73m2 Kidney Failure < 15 mL/min/1.73m2 *Relative to young adult level Estimated glomerular filtration rate is determined by the 2020 CKD-EPI equation recommended by the National Kidney Foundation (A Unifying Approach to GFR Estimation: Recommendations of the NKF-ASK Task Force on Reassessing the Inclusion of Race in Diagnosing Kidney Disease, JASN 2020). The CKD-EPI equation should not be used for patients with unstable renal function and has not been validated in children and those over 70. Current interpretive data was last reviewed 2021. Blood 02/26/2024 2:59 PM CDT 02/26/2024 7:23 PM CDT us Antonia Contreras MD LAB BLOOD ORDERABLES Final Resul t Performing Organization Address [facility] de Phone Number ALLISONMARCO [address] [place] [address] * Albumin Creatinine Ratio, Urine (02/26/2024 2:59 PM CDT) Albumin Ur <12.0 mg/L Comment: Interpretive Data No reference range established. Current interpretive data was last revised 2018. Creatinine Ur 72.5 mg/dL JOHN Comment: Interpretive Data No reference range established. Current interpretive data was last revised 2018. Albumin Creatinine Ratio, Ur <17 1 - 29 mg/g JOHN Urine 02/26/2024 2:59 PM CDT 02/26/2024 7:01 PM CDT us Antonia Contreras MD LAB URINE ORDERABLES Final Resul t Performing Organization Address [facility] de Phone Number JOHN KEYON [address] [place] [address] * Lipid panel (02/26/2024 2:59 PM CDT) Cholesterol 112 30 - 199 mg/dL Comment: Interpretive Data Ages < or = 19 years Acceptable: <170 mg/dL Borderline high: 170-199 mg/dL High: >or= 200 mg/dL Ages > or = 20 years Desirable: <200 mg/dL Borderline high: 200-239 mg/dL High: >or= 240 mg/dL Literature References: 1. Expert Panel on Integrated Guidelines for Cardiovascular Health and Risk Reduction in Children and Adolescents. Pediatrics 2011;128:S213 2. NCEP Expert Panel. Circulation 2004;110:227 Current Interpretive Data was last revised on 2018. Triglycerides 93 <=149 mg/dL JOHN TA Comment: Interpretive Data Ages < or = 9 years Acceptable: <75 mg/dL Borderline high: 75-99 mg/dL High: >or= 100 mg/dL Ages 10 to 20 years Acceptable: <90 mg/dL Borderline high: 90-129 mg/dL High: >or= 130 mg/dL Ages > or = 20 years Desirable: <150 mg/dL Borderline high: 150-199 mg/dL High: 200-499 mg/dL Very high: >or= 499 mg/dL Literature References: 1. Expert Panel on Integrated Guidelines for Cardiovascular Health and Risk Reduction in Children and Adolescents. Pediatrics 2011;128:S213 2. NCEP Expert Panel. Circulation 2004;110:227 Current Interpretive Data was last revised on 2018. HDL 63 >=40 mg/dL JOHN TA Comment: Interpretive Data Ages < or = 19 years Acceptable: >45 mg/dL Borderline low: 40-45 mg/dL Low: <40 mg/dL Ages > or = 20 years Desirable: >or= 60 mg/dL Low: <40 mg/dL Literature References: 1. Expert Panel on Integrated Guidelines for Cardiovascular Health and Risk Reduction in Children and Adolescents. Pediatrics 2011;128:S213 2. NCEP Expert Panel. Circulation 2004;110:227 Current Interpretive Data was last revised on 2018. LDL, calculated 31 <=129 mg/dL JOHN TA Comment: Interpretive Data Ages < or = 19 years Acceptable: <110 mg/dL Borderline high: 110-129 mg/dL High: >or= 130 mg/dL Ages > or = 20 years Optimal: <100 mg/dL Near optimal: 100-129 mg/dL Borderline high: 130-159 mg/dL High: >160 mg/dL Calculated using the Mike LDL-C estimating equation. This equation was implemented on 2024. Prior to this date LDL-C was estimated using the Friedewald equation. Literature References: 1. Expert Panel on Integrated Guidelines for Cardiovascular Health and Risk Reduction in Children and Adolescents. Pediatrics 2011;128:S213 2. NCEP Expert Panel. Circulation 2004;110:227 3. Mckeon M et al. NICKY Cardiol. 2020 September 16;5(5):540-548. doi: 10.1001/jamacardio.2020.0013 Current Interpretive Data was last revised on 2024. Non-HDL Cholesterol 49 mg/dL JOHN TA Comment: Interpretive Data Ages < or = 19 years Acceptable: <120 mg/dL Borderline high: 120-144 mg/dL High: >145 mg/dL Ages > or = 20 years When triglycerides are >200 mg/dL, Non-HDL cholesterol is a secondary target of therapy with treatment goals that are 30 mg/dL greater than the LDL cholesterol target. Literature References: 1. Expert Panel on Integrated Guidelines for Cardiovascular Health and Risk Reduction in Children and Adolescents. Pediatrics 2011;128:S213 2. NCEP Expert Panel. Circulation 2004;110:227 Current Interpretive Data was last revised on 2018. Chol/HDL ratio 2 JOHN TA Blood 02/26/2024 2:59 PM CDT 02/26/2024 7:01 PM CDT Antonia Conterras MD LAB BLOOD ORDERABLES Final Resul t JOHN [address] [place] [address] * POCT hemoglobin A1c (02/26/2024 2:13 PM CDT) Hemoglobin A1C, POC 5.9 4.0 - 5.6 % Comment:None Capillary blood 02/26/2024 2 :13 PM CDT Antonia Contreras MD POINT OF CARE TEST ORDERABLES Fi nal Result * HM DIABETES EYE EXAM (10/14/2023 10:50 AM CDT) Sandra Lang MD HEALTH MAINTENANCE Edited Result - Final from Last 3 Months or Most Recently Relevant to Health Maintenance Insurance AETNA MEDICARE AETNA MEDICARE Care Teams Feeder Operator Automatic Relationship Specialty Start Date End Date Floresita Leon NP PCP - General 08/16/16 [place] [address] [facility] [address], [place] [address] Consulting Physician Endocrinology Diabetes & Metabolism 11/12/18 [place] [address] [address] [facility] [address] [place] [address] Nurse Practitioner Internal Medicine 11/12/18
--- OUTSIDE RECORDS SUMMARY | 2024-07-26 10:43 | XMS_ITS | Continuity of Care Document ---
Author Organization [facility] Address [address] [facility] [address] [place] [address] Phone Care Team Providers Care Register Clerk Name Role Phone Shanks OD, Mian Unavailable Unavailable Procedures Procedure Date Office/outpatient Visit, Est Visual Field Examination(s) Optic Nerve Topography Optic Nerve Topography Office/outpatient Visit, Est Fundus Photography W/ Report Optic Nerve Topography Optic Nerve Topography Visual Field Examination(s) Eye Exam & Treatment Eye Exam & Treatment Refraction Advance Directives Directive Yes / No Effective Date File Name No Information Encounters Encounter Description Practice Location Reason(s) For Visit Diagnoses Date Provider Providers Copied on Encounter Office/outpat ient Visit, Est [facility], [address], [place], [place], [id number], [place] tel:[phone] [facility] [place] No Information 2-201 0 Shanks OD Mian. [address] [place] , [address], [place], [address], [place]. tel:[phone] [facility], [address], [place], [place], [id number], [place] tel:[phone] [facility] [place] No Information Feb- 6-200 9 Shanks OD Mian. [address] , [address], [place], [address], [place]. tel:[phone] Referring Provider: Mian Gomez, [facility] [address], [place], [address]. tel:[phone] [facility], [address] [place] [address] [address], [place], [place], [id number], [place] tel:[phone] [facility] No Information 2 8-200 9 Shanks OD Mian. [address], [place], [place], [facility], [place]. tel:[phone] Referring Provider: Mian Shanks OD Patricia, [facility] [address], [place], [place], [facility]. tel:[phone] Office/outpat ient Visit, [facility], [address] [place] [address] [address], [place], [place], [id number], [place] tel:[phone] [facility] [place] No Information 1 6-200 9 Shanks OD Mian. [facility] [address], [place], [address], [place]. tel:[phone] Referring Provider: Mian Shanks OD A, [facility] [address], [place], [place], [facility]. tel:[phone] [facility], [address] [place] [address] [address], [place], [place], [id number], [place] tel:[phone] SEC [facility] [address] No Information Dec-0 1-200 8 Shanks OD Mian. [facility] [address], [place], [address], [place]. tel:[phone] Referring Provider: Mian Shanks OD A, [facility] [address], [place], [address]. tel:[phone] [facility], [address] [place] [address] [address], [place], [place], [id number], [place] tel:[phone] SEC [facility] No Information Morgan-3 0-200 8 Shanks OD Mian. [address] [place] [address] , [address], [place], [address], . tel:[phone] Referring Provider: Mian Gomez, [address] [place] [address] [address], [place], [place], [facility]. tel:[phone] [facility], [address], [place], [place], [id number], tel:[phone] SEC [facility] No Information Morgan-0 4-200 8 Shanks OD Mian. [address] [place] [address] , [address], [place], [address], [place]. tel:[phone] [facility], [address], [place], [place], [id number], tel:[phone] [facility] No Information Dec-2 9-200 6 Shanks OD Mian. [address] [place] [address] [address], [place], [address], [place]. tel:[phone] Family History Family Member Type Diagnosis Age At Onset No Information Payers Payer name Insurance type Covered libertarian ID Authorgemaa huyen(s) [facility] [employer] [id number] Social History Type Description Quantity Date Captured Comments Sex Female Smoking Status No Information Chief Complaint And Reason For Visit No Information Reason For Referral Reason For Referral No Information History Of Present Illness Encounter Date Complaint History Of Prese nt Illness No Information Functional Status Date Functional Assessmen t No Information Instructions Date Instruction Additional Infor mation No Information Assessments Type Assessment Date No Information Patient Care Teams Name Effective Dates (start - stop) Status Members No Information
--- OUTSIDE RECORDS SUMMARY | 2024-07-26 10:43 | XMS_ITS | CONTINUITY OF CARE DOCUMENT ---
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 Ricardo Tomlin MD Hyperlipidemia active Shruti Hernandez RN DIABETES MELLITUS active ? Ricardo Tomlin MD SHORTNESS OF BREATH-ON EXERTION-03/30 ECHO EF 55 completed - Devendra Browne ABNORMAL STRESS NUCLEAR SCAN-02/27 NUC FX INF DEF completed - Ricrado Tomlin MD CAD S/P LAD STENT 03/2012 active Devendra Browne CCM enroll VENOUS INSUFFICIENCY-03/30 MARILU DOP NEG completed - Ricardo Tomlin MD LEG PAIN-10/29 JOHANNA NEG completed - Devendra shields Chest pain completed - Devendra Browne Obstructive sleep apnea - on CPAP active Ricardo Tomlin MD Hypothyroidism active Devendra Browne Anemia active Ricardo Tomlin MD Dizziness completed - Devendra Browne Fatigue completed - Devendra [facility] Preoperative cardiovascular evaluation active Delmy Eaton Diabetes Mellitus, Type II, controlled w/vascular complications active Ricardo Tomlin MD Sinus tachycardia active Ricardo Tomlin MD ENCOUNTERS Date Type Provider Location Encounter Diag nosis - In-person encounter Office Visit Ricardo Tomlin MD [facility] - In-person encounter Office Visit Ricardo Tomlin MD [facility] - In-person encounter Office Visit Ricardo Tomlin MD [facility] - In-person encounter Office Visit Ricardo Tomlin MD [facility] Diabetes Mellitus, Type II, controlled w/vascular complicationsSinus tachycardia - In-person encounter Office Visit Ricardo Tomlin MD [facility] Preoperative cardiovascular evaluation - In-person encounter Office Visit Ricardo Tomlin MD [facility] CAD S/P LAD STENT 03/2012 - In-person encounter Office Visit Ricardo Tomlin MD [facility] Fatigue - In-person encounter Office Visit Ricardo Tomlin MD [facility] SHORTNESS OF BREATH-ON EXERTION-03/30 ECHO EF 55LEG PAIN-13 JOHANNA NEGChest painDizziness - In-person encounter Office Visit Ricardo Tomlin MD [facility] - In-person encounter Office Visit Ricardo Tomlin MD [facility] - In-person encounter Office Visit Ricardo Tomlin MD [facility] - In-person encounter Office Visit Ricardo Tomlin MD [facility] - In-person encounter Office Visit Ricardo Tomlin MD [facility] Anemia - In-person encounter Office Visit Ricardo [place] [facility] - In-person encounter Office Visit Ricardo Tomlin MD [facility] - In-person encounter Office Visit Ricardo Tomlin MD [facility] HTN ESSENTIALObstructive sleep apnea - o n CPAP - In-person encounter Office Visit Ricardo Tomlin MD [facility] CAD S/P LAD STENT 03/2012Obstructive sleep apnea - on CPAPHypothyroidism - In-person encounter Office Visit Ricardo Tomlin MD [facility] - In-person encounter Office Visit Ricardo Tomlin MD [facility] ABNORMAL STRESS NUCLEAR SCAN-02/27 NUC F X INF DEFCAD S/P LAD STENT 03/2012VENOUS INSUFFICIENCY-03/30 MARILU DOP NEG - In-person encounter Office Visit Ricardo Tomlin MD [facility] - In-person encounter Office Visit Ricardo Tomlin MD [facility] - In-person encounter Office Visit Ricardo Tomlin MD [facility] Chest pain - In-person encounter Office Visit Ricardo Tomlin MD [facility] - In-person encounter Office Visit Ricardo Tomlin MD [facility] - In-person encounter Office Visit Satish Ghotra MD [facility] - In-person encounter Office Visit Ricardo Tomlin MD [facility] LEG PAIN-10/29 JOHANNA NEG - In-person encounter Office Visit Ricardo Tomlin MD [facility] - In-person encounter Office Visit Ricardo Tomlin MD [facility] HTN ESSENTIALOBESITYHyperlipidemiaDIABETES MELLITUSSHORTNESS OF BREATH-ON EXERTION-03/30 ECHO EF 55ABNORMAL STRESS NUCLEAR SCAN-02/27 NUC FX INF DEF VITAL SIGNS Date Observation Value Provider Body Mass Index (Ratio) 37.03 kg/m2 Devyn canseco Tamiko blood pressure, diastolic 85 mm[Hg] Li nkLogic blood pressure, systolic 134 mm[Hg] Carolina kLogic blood pressure, cuff size regular Ja rr blood pressure, diastolic 85 mm[Hg] Ja rret blood pressure, systolic 134 mm[Hg] Jar ret pulse rate 85 /min Karthik oxygen saturation, oximetry 98 % respiratory rate E&M 16 /min Karthik weight E&M 226 [lb_av] Karthik height E&M 65.5 [in_i] Karthik y Body Mass Index (Ratio) 37.52 kg/m2 Fabien Mallory blood pressure, diastolic 76 mm[Hg] An reyes Marmolejo blood pressure, systolic 141 mm[Hg] Any rodri Marmolejo pulse rate 70 /min Mica Marmolejo oxygen saturation, oximetry 96 % Mica Marmolejo weight E&M 229 [lb_av] Mica Marmolejo blood pressure, cuff size large An reyes [place]jo height E&M 65.5 [in_i] Mica Marmolejo Body Mass Index (Ratio) 36.70 kg/m2 Monik Eaton blood pressure, diastolic 62 mm[Hg] Ri shirley Morel blood pressure, systolic 120 mm[Hg] Kevon michaeladrian Adriel blood pressure, cuff size large Ri shirley Kingerson oxygen saturation, oximetry 100 % Agueda Morel respiratory rate E&M 16 /min Layo Morel pulse rate 85 /min Agueda bahena weight E&M 224 [lb_av] Agueda bahena height E&M 65.5 [in_i] Agueda bahena Body Mass Index (Ratio) 36.38 kg/m2 Vu Mcclelland blood pressure, diastolic 64 mm[Hg] Ch astity Sarah blood pressure, systolic 140 mm[Hg] Naa stity Sarah pulse rate 104 /min Chastity Sarah oxygen saturation, oximetry 98 % Chastity Sarah weight E&M 222 [lb_av] Chastity Sarah respiratory rate E&M 16 /min Chastit y Sarah height E&M 65.5 [in_i] [facility] Body Mass Index (Ratio) 36.54 kg/m2 Monik Eaton blood pressure, diastolic 70 mm[Hg] Janki nkLogic blood pressure, systolic 140 mm[Hg] Carolina kLogic blood pressure, cuff size large Tr eric Carlos blood pressure, diastolic 70 mm[Hg] Tr eric Carlos blood pressure, systolic 140 mm[Hg] Try patricia Carlos oxygen saturation, oximetry 98 % Trypatricia Carlos respiratory rate E&M 16 /min Trynett Carlos pulse rate 107 /min Trypatricia Carlos weight E&M 223 [lb_av] Trynett Carlos height E&M 65.5 [in_i] Trypatricia Carlos Body Mass Index (Ratio) 36.05 kg/m2 Jonathan Browne blood pressure, cuff size large Ke rri Padmini blood pressure, diastolic 70 mm[Hg] Ke rri Gruenenfelder blood pressure, systolic 142 mm[Hg] Marissa Velasquez oxygen saturation, oximetry 97 % Jasmine Velasquez respiratory rate E&M 16 /min Jasmine reid pulse rate 84 /min Jasmine Sotelo [facility] weight E&M 220 [lb_av] Jasmine Sotelo [facility] height E&M 65.5 [in_i] Jasmine Sotelo [facility] Body Mass Index (Ratio) 36.54 kg/m2 Jonathan foster Pavan blood pressure, diastolic 75 mm[Hg] Cy ntnadinea Christopher blood pressure, systolic 143 mm[Hg] Chasity edison Christopher blood pressure, cuff size regular Cy mitra Christopher respiratory rate E&M 16 /min Scarlet Christopher oxygen saturation, oximetry 98 % Scarlet Christopher pulse rate 90 /min Scarlet Campbel l weight E&M 223 [lb_av] Scarlet Campbel l height E&M 65.5 [in_i] Scarlet Campbel l temperature site temporal Stephenie Tank [facility] temperature E&M 96.2 [degF] Stephenie Tanks kalen Body Mass Index (Ratio) 38.18 kg/m2 Jonathan foster Pavan blood pressure, diastolic 80 mm[Hg] Sarthak Lucioby blood pressure, systolic 114 mm[Hg] Severiano linwood Lucioby oxygen saturation, oximetry 97 % Sheila Lucioby pulse rate 85 /min Sheila Lucioby respiratory rate E&M 17 /min Sheila Lucioby blood pressure, cuff size regular Sarthak Lucioby weight E&M 233 [lb_av] Sheila Lucioby height E&M 65.5 [in_i] Sheila Roff blood pressure, diastolic, left arm 70 mm [Hg] Devendra [facility] blood pressure, systolic, left arm 122 mm [Hg] Devendar [facility] blood pressure, diastolic, right arm 74 m m[Hg] [facility] blood pressure, systolic, right arm 120 m m[Hg] [facility] Body Mass Index (Ratio) 38.02 kg/m2 Jonathan kristin [facility] blood pressure, cuff size regular Cy mitra Christopher blood pressure, diastolic 70 mm[Hg] Pio Christopher blood pressure, systolic 122 mm[Hg] Chasity Christopher oxygen saturation, oximetry 98 % Scarlet Christopher respiratory rate E&M 16 /min Scarlet Christopher pulse rate 104 /min Scarlet lux weight E&M 232 [lb_av] Scarlet Xavierbel l height E&M 65.5 [in_i] Scarlet García l Body Mass Index (Ratio) 39.16 kg/m2 [facility] blood pressure, cuff size regular Cy mitra Christopher blood pressure, diastolic 70 mm[Hg] Pio Christopher blood pressure, systolic 124 mm[Hg] Chasity Christopher oxygen saturation, oximetry 97 % Scarlet Christopher respiratory rate E&M 16 /min Scarlet Christopher pulse rate 88 /min Scarlet García l weight E&M 239 [lb_av] Scarlet Campbel l height E&M 65.5 [in_i] Scarlet Campbel l Body Mass Index (Ratio) 39.16 kg/m2 Jonathan [facility] blood pressure, diastolic, left arm 80 mm [Hg] [facility] blood pressure, systolic, left arm 128 mm [Hg] [facility] blood pressure, diastolic, right arm 70 m m[Hg] [facility], [facility], right arm 130 m m[Hg] [place] Bustillos blood pressure, diastolic 80 mm[Hg] Cassius loyd blood pressure, systolic 128 mm[Hg] Tirso gaspar Bustillos oxygen saturation, oximetry 99 % [place] respiratory rate E&M 16 /min Michael Bustillos pulse rate 76 /min Michael weight E&M 239 [lb_av] [place] Bust[place]os height E&M 65.5 [in_i] [place] Bustillos Body Mass Index (Ratio) 41.46 kg/m2 Jonathan [facility] blood pressure, diastolic 80 mm[Hg] Da devyn [place] blood pressure, systolic 122 mm[Hg] Dac ia Dulce oxygen saturation, oximetry 98 % Ame Dulce respiratory rate E&M 18 /min Ame V oss pulse rate 99 /min Ame Dulce weight E&M 253 [lb_av] Ame Dulce height E&M 65.5 [in_i] Ame Dulce Body Mass Index (Ratio) 41.95 kg/m2 Jonathan [facility] Body Mass Index (Ratio) 42.28 kg/m2 Monica ica N Faustino blood pressure, cuff size regular Je ssica N Faustino blood pressure, diastolic 70 mm[Hg] Je ssica N Faustino blood pressure, systolic 140 mm[Hg] Magnolia dion N Faustino oxygen saturation, oximetry 98 % Yusra N Faustino respiratory rate E&M 18 /min Yusra N Faustino pulse rate 80 /min Yusra N Wilso n weight E&M 258.0 [lb_av] Yusra N Wils on Body Mass Index (Ratio) 41.85 kg/m2 Monica ica N Faustino blood pressure, cuff size regular Je ssica N Faustino blood pressure, diastolic 70 mm[Hg] Je ssica N Faustino blood pressure, systolic 122 mm[Hg] Magnolia dion N Faustino oxygen saturation, oximetry 98 % Yusra N Faustino respiratory rate E&M 18 /min Yusra N Faustino pulse rate 80 /min Yusra N Wilso n weight E&M 255.4 [lb_av] Yusra N Wils on blood pressure, cuff size large Ke rri Gruenenflala blood pressure, diastolic 80 mm[Hg] Ke rri Gruenenflala blood pressure, systolic 160 mm[Hg] Marissa ri Eva oxygen saturation, oximetry 98 % Jasmine Eva respiratory rate E&M 20 /min Jasmine G priscilaenenflala pulse rate 99 /min Jasmine Ashleigh [facility] weight E&M 256 [lb_av] Jasmine Grniravclaudee [facility] height E&M 65.5 [in_i] Jasmine Baldevniravclaudee [facility] Body Mass Index (Ratio) 42.77 kg/m2 Jonathan Browne blood pressure, cuff size regular Ke rri Guillaumeneclaudebaylor [facility] blood pressure, diastolic 65 mm[Hg] Ke rri Baldevsakshiluzmaria blood pressure, systolic 154 mm[Hg] Marissa ri Eva oxygen saturation, oximetry 98 % Jasmine Eva respiratory rate E&M 18 /min Jasmine G priscilaenenflala pulse rate 89 /min Jasmine Gruenenfe [facility] weight E&M 261 [lb_av] Jasmine Grsakshinenfe [facility] height E&M 65.5 [in_i] Jasmine Baldevsakshinenfe [facility] Body Mass Index (Ratio) 41.92 kg/m2 Jonathan Browne blood pressure, diastolic 73 mm[Hg] Linda Ford blood pressure, systolic 157 mm[Hg] Celia Ford oxygen saturation, oximetry 98 % Mateus Ford respiratory rate E&M 18 /min Gregory Ford pulse rate 79 /min Mateus bonilla weight E&M 255.8 [lb_av] Mateus mckeon height E&M 65.5 [in_i] Mateus bonilla Body Mass Index (Ratio) 41.78 kg/m2 Jonathan Browne respiratory rate E&M 18 /min Kavitha Barnhart pulse rate 89 /min Kavitha Barnhart oxygen saturation, oximetry 97 % Kavitha Barnhart blood pressure, diastolic 72 mm[Hg] Jagdish henry Barnhart blood pressure, systolic 130 mm[Hg] Lemon royce Barnhart blood pressure, cuff size regular Jagdish henry Barnhart weight E&M 255 [lb_av] Kavitha Barnhart height E&M 65.5 [in_i] Leyla Holt Body Mass Index (Ratio) 41.46 kg/m2 Jonathan Browne blood pressure, resting Yes Ricardo Tomlin MD blood pressure, cuff size regular Nabor Velasquez blood pressure, diastolic 64 mm[Hg] Nabor rri Eva blood pressure, systolic 135 mm[Hg] Marissa Velasquez oxygen saturation, oximetry 98 % Jasmine Velasquez respiratory rate E&M 16 /min Jasmine reid pulse rate 87 /min Jasmine greer weight E&M 253 [lb_av] Jasmine greer height E&M 65.5 [in_i] Jasmine arora blood pressure, diastolic 68 mm[Hg] Linda Ford blood pressure, systolic 149 mm[Hg] Celia Ford pulse rate 72 /min Mateus bonilla oxygen saturation, oximetry 98 % Mateus Ford respiratory rate E&M 16 /min Gregory Ford Body Mass Index (Ratio) 41.36 kg/m2 Ailin Ford weight E&M 252.4 [lb_av] Mateus mckeon blood pressure, diastolic 73 mm[Hg] Linda Ford blood pressure, systolic 150 mm[Hg] Celia Ford pulse rate 76 /min Mateus bonilla oxygen saturation, oximetry 95 % Mateus Ford respiratory rate E&M 16 /min Gregory Ford Body Mass Index (Ratio) 40.18 kg/m2 Ailin Ford weight E&M 245.2 [lb_av] Mateus mckeon blood pressure, diastolic 70 mm[Hg] Linda Ford blood pressure, systolic 135 mm[Hg] Celia Ford Body Mass Index (Ratio) 39.59 kg/m2 Ailin Ford pulse rate 73 /min Mateus bonilla oxygen saturation, oximetry 98 % Mateus Ford respiratory rate E&M 16 /min Gregory Ford weight E&M 241.6 [lb_av] Mateus mckeon blood pressure, diastolic 70 mm[Hg] Ta elaine Bronwyn blood pressure, systolic 161 mm[Hg] Lemon ica Bronwyn Body Mass Index (Ratio) 40.47 kg/m2 Emily ebonie Barnhart pulse rate 87 /min Kavitha Bronwyn oxygen saturation, oximetry 98 % Kavitha Bronwyn respiratory rate E&M 17 /min Kavitha Bronwyn weight E&M 247 [lb_av] Kavitha Barnhart Body Mass Index (Ratio) 40.80 kg/m2 Vala rian [facility] blood pressure, diastolic, left arm 77 mm [Hg] Aneatrkenisha [facility] blood pressure, systolic, left arm 149 mm [Hg] Aneatris [facility] blood pressure, diastolic, right arm 65 m m[Hg] Aneatris [facility] blood pressure, systolic, right arm 150 m m[Hg] Aneatris [facility] blood pressure, diastolic 77 mm[Hg] An eatris [facility] blood pressure, systolic 149 mm[Hg] Val weiss [facility] pulse rate 92 /min [facility], oximetry 98 % Valatrkenisha [facility] respiratory rate E&M 17 /min Valmeghannandrew maya [facility] weight E&M 249 [lb_av] Tyrell Hinson blood pressure, diastolic, left arm 64 mm [Hg] Nitish Eaton RN blood pressure, systolic, left arm 149 mm [Hg] Nitish Eaton RN blood pressure, diastolic, right arm 72 m m[Hg] Nitish Eaton RN blood pressure, systolic, right arm 142 m m[Hg] Nitish Eaton RN blood pressure, diastolic 64 mm[Hg] Kelechi Eaton RN blood pressure, systolic 149 mm[Hg] Nitish Eaton RN pulse rate 72 /min Nitish Eaton RN oxygen saturation, oximetry 99 % Nitish Eaton RN respiratory rate E&M 16 /min Nitish adams RN Body Mass Index (Ratio) 40.62 kg/m2 Nitish Eaton RN weight E&M 247 [lb_av] Nitish Eaton RN blood pressure, diastolic, left arm 75 mm [Hg] Nitish Eaton RN blood pressure, systolic, left arm 157 mm [Hg] Nitish Eaton RN blood pressure, diastolic, right arm 69 m m[Hg] Nitish Buttss RN blood pressure, systolic, right arm 154 m m[Hg] Nitish Buttss RN blood pressure, diastolic 75 mm[Hg] Kelechi Eaton RN blood pressure, systolic 157 mm[Hg] Nitish Buttss RN pulse rate 92 /min Nitish Buttss RN oxygen saturation, oximetry 98 % Nitish Eaton RN respiratory rate E&M 15 /min Nitish adams RN Body Mass Index (Ratio) 41.45 kg/m2 Nitish Buttss RN weight E&M 252 [lb_av] Nitish Eaton RN blood pressure, diastolic 68 mm[Hg] Kelechi Eaton RN blood pressure, systolic 144 mm[Hg] Nitish Buttss RN pulse rate 121 /min Nitish Eaton RN oxygen saturation, oximetry 98 % Nitish Eaton RN respiratory rate E&M 18 /min Nitish adams RN weight E&M 251 [lb_av] Nitish Buttss RN blood pressure, diastolic, left arm 75 mm [Hg] Nitish Buttss RN blood pressure, systolic, left arm 146 mm [Hg] Nitish Buttss RN blood pressure, diastolic, right arm 76 m m[Hg] Nitish Buttss RN blood pressure, systolic, right arm 137 m m[Hg] Nitish Eaton RN blood pressure, diastolic 75 mm[Hg] Kelechi Eaton RN blood pressure, systolic 146 mm[Hg] Nitish Buttss RN pulse rate 80 /min Nitish Eaton RN oxygen saturation, oximetry 98 % Nitish Eaton RN respiratory rate E&M 18 /min Nitish Christensen rks RN Body Mass Index (Ratio) 43.09 kg/m2 Nitish Buttss RN weight E&M 262 [lb_av] Nitish Eaton RN blood pressure, diastolic, left arm 80 mm [Hg] Nitish Eaton RN blood pressure, systolic, left arm 148 mm [Hg] Nitish Eaton RN blood pressure, diastolic, right arm 80 m m[Hg] Nitish Eaton RN blood pressure, systolic, right arm 148 m m[Hg] Nitish Eaton RN blood pressure, diastolic 80 mm[Hg] Kelechi Eaton RN blood pressure, systolic 148 mm[Hg] Nitish Eaton RN pulse rate 98 /min Nitish Eaton RN oxygen saturation, oximetry 99 % Nitish Eaton RN respiratory rate E&M 16 /min Nitish adams RN weight E&M 264.4 [lb_av] Nitish Eaton RN height E&M 65.5 [in_i] Nitish Eaton RN Body Mass Index (Ratio) 44.26 kg/m2 [place] andrew Velasquez blood pressure, diastolic 89 mm[Hg] Ke kelsiei Eva blood pressure, systolic 161 mm[Hg] Marissa Velasquez pulse rate 99 /min Jasmine aroraer oxygen saturation, oximetry 99 % Jasmine Velasquez respiratory rate E&M 17 /min Jasmine reid weight E&M 265 [lb_av] Jasmine aroraer height E&M 65 [in_i] Jasmine greer ALLERGIES Allergy Name Onset Date Reaction Criticality Status STATINS Myalgias and Arthralgias. Low Critic ality active BYDUREON Low Criticality active RESULTS Date Observation Value Provider Reference Range Interpretation Location 05/23 LDL cholesterol, serum 27 mg/dL [facility] 10/11 triglyceride, serum, random 106 mg/dL [facility] 10/11 triglyceride, serum, fasting 106 mg/dL [facility] 10/11 HDL cholesterol, serum 59 mg/dL [facility] 10/11 cholesterol, serum 105 mg/dL [facility] 10/11 LDL cholesterol, serum 25 mg/dL Devendra Pavan 12/15 LDL cholesterol, serum 29 mg/dL Ricardo Tomlin MD 12/15 prothrombin time (patient) 11.2 s LinkLogic 9.1-12.0 12/15 international normalized ratio (INR) 1.1 LinkLog[facility] 0.8-1.2 12/15 lipoprotein, beta, serum, point, quantitative, calculated 29 mg/dL LinkLogic 0-99 12/15 very low density lipoproteins 22 mg/dL [facility] 5-40 12/15 HDL cholesterol, serum 68 mg/dL LinkLogic >39 12/15 triglyceride, serum, random 110 mg/dL [facility] 0-149 12/15 cholesterol, serum 119 mg/dL [facility] [phone]/0 7/30 calcium, serum 9.0 mg/dL [facility] 8.7-10.3 12/15 carbon dioxide, venous blood 27 mmol/L [facility] 20-29 12/15 chloride, serum 104 mmol/L [facility] 96-106 12/15 potassium, serum 4.3 mmol/L [facility]ic 3.5-5.2 12/15 sodium, serum 147 mmol/L LinkLogic 134-144 High 12/15 urea nitrogen/creatinin e ratio, serum 11 [facility] 12-28 Low 12/15 eGFR if 67 mL/min/{1.73 _m2} LinkLogic >59 12/15 eGFR if not 58 mL/min/{1.73 _m2} LinkLogic >59 Low 12/15 creatinine, serum 1.00 mg/dL LinkLogic 0.57-1.00 12/15 urea nitrogen, blood 11 mg/dL LinkLogic 8-27 12/15 blood glucose, random 147 mg/dL LinkLogic 65-99 High 12/15 basophil count, absolute 0.1 x10E3/uL LinkLogic 0.0-0.2 12/15 Eosinophil Absolute Count 0.3 X10E3/UL LinkLogic 0.0-0.4 12/15 monocyte count, blood, automated 0.4 X10E3/UL LinkLogic 0.1-0.9 12/15 lymphocyte count, blood, automated 1.9 X10E3/UL LinkLogic 0.7-3.1 12/15 Absolute Neutrophils 4.7 X10E3/UL LinkLogic 1.4-7.0 12/15 basophils as percent of blood leukocytes 1 % LinkLogic Not Estab. 12/15 eosinophils as percent of blood leukocytes 4 % [facility]Log[facility] Not Estab. 12/15 monocytes as percent of blood leukocytes 5 % LinkLog[facility] Not Estab. 12/15 lymphocytes as percent of blood leukocytes 25 % LinkLog[facility] Not Estab. 12/15 neutrophils as percent of blood leukocytes 65 % LinkLogic Not Estab. 12/15 platelet count 193 X10E3/UL LinkLogic [phone]/0 7/30 red blood cell distribution width 13.9 % [facility] 12.3-15.4 12/15 mean corpuscular hemoglobin concentration, RBC 32.4 G/DL [facility] 31.5-35.7 12/15 mean corpuscular hemoglobin, RBC 28.4 pg [facility] 26.6-33.0 12/15 mean corpuscular volume, RBC 88 fL [facility] 79-97 12/15 hematocrit, blood 41.0 % [facility] 34.0-46.6 12/15 hemoglobin, blood 13.3 g/dL [facility] 11.1-15.9 12/15 erythrocyte (RBC) count 4.68 X10E6/UL Link[facility] 3.77-5.28 12/15 leukocyte count, blood 7.3 X10E3/UL [facility] 3.4-10.8 07/01 hemoglobin A1C, blood, as % of total hemoglobin 7.3 % Devendra Browne 08/18 LDL cholesterol, serum 33 mg/dL Ricardo Tomlin MD 11/22 ferritin, serum 411 ng/mL LinkLogic 15-150 High 11/22 iron saturation percent, serum 28 % [facility] 15-55 11/22 iron, serum 68 ug/dL [facility] 27-139 11/22 iron binding capacity, unsaturated 172 ug/dL [facility] [phone]/0 7/07 iron binding capacity, total 240 ug/dL LinkLogic 250-450 Low 11/22 basophil count, absolute 0.0 x10E3/uL LinkLogic 0.0-0.2 11/22 Eosinophil Absolute Count 0.1 X10E3/UL LinkLogic 0.0-0.4 11/22 monocyte count, blood, automated 0.3 X10E3/UL LinkLogic 0.1-0.9 11/22 lymphocyte count, blood, automated 1.3 X10E3/UL LinkLogic 0.7-3.1 11/22 Absolute Neutrophils 3.2 X10E3/UL LinkLogic 1.4-7.0 11/22 basophils as percent of blood leukocytes 1 % LinkLogic Not Estab. 11/22 eosinophils as percent of blood leukocytes 2 % LinkLogic Not Estab. 11/22 monocytes as percent of blood leukocytes 7 % LinkLogic Not Estab. 11/22 lymphocytes as percent of blood leukocytes 26 % LinkLogic Not Estab. 11/22 neutrophils as percent of blood leukocytes 64 % LinkLogic Not Estab. 11/22 platelet count 165 X10E3/UL LinkLog [phone]/0 7/07 red blood cell distribution width 21.5 % LinkLog 12.3-15.4 High 11/22 mean corpuscular hemoglobin concentration, RBC 31.3 G/DL LinkLog 31.5-35.7 Low 11/22 mean corpuscular hemoglobin, RBC 26.7 pg LinkLog 26.6-33.0 11/22 mean corpuscular volume, RBC 85 fL LinkLogic 79-97 11/22 hematocrit, blood 40.3 % LinkLog 34.0-46.6 11/22 hemoglobin, blood 12.6 g/dL LinkLog 11.1-15.9 11/22 erythrocyte (RBC) count 4.72 X10E6/UL LinkLog 3.77-5.28 11/22 leukocyte count, blood 5.0 X10E3/UL [facility]Log[facility] 3.4-10.8 08/26 LDL cholesterol, serum 29 mg/dL Devendra Browne 09/16 ferritin, serum 11 ng/mL [facility]ic 15-150 Low 09/16 iron saturation percent, serum 9 % [facility] 15-55 Critical low 09/16 iron, serum 31 ug/dL [facility] 27-139 09/16 iron binding capacity, unsaturated 331 ug/dL [facility] [phone]/0 5/01 iron binding capacity, total 362 ug/dL [facility] [phone]/0 5/01 basophil count, absolute 0.0 x10E3/uL [facility] 0.0-0.2 09/16 Eosinophil Absolute Count 0.2 X10E3/UL [facility]Logic 0.0-0.4 09/16 monocyte count, blood, automated 0.5 X10E3/UL [facility] 0.1-0.9 09/16 lymphocyte count, blood, automated 1.6 X10E3/UL [facility] 0.7-3.1 09/16 Absolute Neutrophils 4.5 X10E3/UL [facility] 1.4-7.0 09/16 basophils as percent of blood leukocytes 0 % [facility] Not Estab. 09/16 eosinophils as percent of blood leukocytes 2 % [facility] Not Estab. 09/16 monocytes as percent of blood leukocytes 7 % [facility] Not Estab. 09/16 lymphocytes as percent of blood leukocytes 24 % [facility] Not Estab. 09/16 neutrophils as percent of blood leukocytes 67 % [facility] Not Estab. 09/16 platelet count 201 X10E3/UL [facility] [id number]/0 5/01 red blood cell distribution width 17.0 % [facility] 12.3-15.4 High 09/16 mean corpuscular hemoglobin concentration, RBC 30.7 G/DL [facility] 31.5-35.7 Low 09/16 mean corpuscular hemoglobin, RBC 23.1 pg [facility] 26.6-33.0 Low 09/16 mean corpuscular volume, RBC 75 fL [facility] 79-97 Low 09/16 hematocrit, blood 35.2 % [facility] 34.0-46.6 09/16 hemoglobin, blood 10.8 g/dL [facility] 11.1-15.9 Low 09/16 erythrocyte (RBC) count 4.67 X10E6/UL [facility] 3.77-5.28 09/16 leukocyte count, blood 6.8 X10E3/UL [facility] 3.4-10.8 08/26 triglyceride, serum, fasting 129 mg/dL Ricardo Tomlin MD 08/26 HDL cholesterol, serum 69 mg/dL Ricardo Tomlin MD 08/26 LDL cholesterol, serum 29 mg/dL Ricardo Tomlin MD 08/26 cholesterol, serum 125 mg/dL Ricardo Tomlin MD 08/12 prothrombin time (patient) 10.9 s LinkLog 9.1-12.0 08/12 international normalized ratio (INR) 1.1 [facility] 0.8-1.2 08/12 calcium, serum 8.8 mg/dL [facility] 8.7-10.3 08/12 carbon dioxide, venous blood 25 mmol/L [facility] 18-08/12 chloride, serum 102 mmol/L [facility] 96-106 08/12 potassium, serum 4.4 mmol/L [facility] 3.5-5.2 08/12 sodium, serum 143 mmol/L [facility] [phone]/0 3/27 urea nitrogen/creatinin e ratio, serum 14 [facility] 12-08/12 eGFR if 68 mL/min/{1.73 _m2} [facility] >59 08/12 eGFR if not 59 mL/min/{1.73 _m2} [facility] >59 Low 08/12 creatinine, serum 1.00 mg/dL [facility] 0.57-1.00 08/12 urea nitrogen, blood 14 mg/dL [facility] 8-08/12 blood glucose, random 144 mg/dL [facility] 65-99 High 08/12 basophil count, absolute 0.0 x10E3/uL [facility] 0.0-0.2 08/12 Eosinophil Absolute Count 0.1 X10E3/UL [facility] 0.0-0.4 08/12 monocyte count, blood, automated 0.4 X10E3/UL [facility] 0.1-0.9 08/12 lymphocyte count, blood, automated 1.4 X10E3/UL [facility] 0.7-3.1 08/12 Absolute Neutrophils 3.6 X10E3/UL [facility] 1.4-7.0 08/12 basophils as percent of blood leukocytes 0 % [facility] Not Estab. 08/12 eosinophils as percent of blood leukocytes 2 % [facility] Not Estab. 08/12 monocytes as percent of blood leukocytes 8 % [facility] Not Estab. 08/12 lymphocytes as percent of blood leukocytes 25 % [facility] Not Estab. 08/12 neutrophils as percent of blood leukocytes 65 % [facility] Not Estab. 08/12 platelet count 242 X10E3/UL [facility] 561-230 3613/0 3/27 red blood cell distribution width 17.0 % [facility] 12.3-15.4 High 08/12 mean corpuscular hemoglobin concentration, RBC 29.9 G/DL [facility] 31.5-35.7 Low 08/12 mean corpuscular hemoglobin, RBC 23.1 pg [facility] 26.6-33.0 Low 08/12 mean corpuscular volume, RBC 78 fL [facility] 79-97 Low 08/12 hematocrit, blood 34.5 % [facility] 34.0-46.6 08/12 hemoglobin, blood 10.3 g/dL [facility] 11.1-15.9 Low 08/12 erythrocyte (RBC) count 4.45 X10E6/UL [facility] 3.77-5.28 08/12 leukocyte count, blood 5.5 X10E3/UL [facility] 3.4-10.8 2018/0 3/16 pro brain natriuretic peptide 129 pg/mL [facility] 0-301 01/23 creatinine, random, urine 40.24 (?) [facility] 01/23 microalbumin, urine 1 [facility] 0-30 01/23 albumin/creatinine ratio, urine 4 MG/G CREATININE [facility] 0-30 01/23 very low density lipoproteins 26.6 mg/dl [facility] 5.0-40.0 01/23 lipoprotein, beta, serum, point, quantitative, calculated 1 mg/dL [facility] <99 01/23 HDL cholesterol, serum 56 mg/dL [facility] 45-65 01/23 cholesterol, serum 118 mg/dL [facility] 0-200 01/23 triglyceride, serum, fasting 133 mg/dL [facility] 0-150 06/11 LDL cholesterol, serum 35 mg/dL Ricardo Tomlin MD 06/11 very low density lipoproteins 19.6 mg/dL [facility] 5.0 - 40.0 06/11 LDL/HDL (low-density lipoprotein/high-d ensity lipoprotein) ratio 0.5 RATIO [facility] - 06/11 lipoprotein, beta, serum, point, quantitative, calculated 35.4 (?) [facility] 0.0 - 100.0 06/11 HDL cholesterol, serum 67.0 mg/dL [facility] 45.0 - 65.0 High 06/11 cholesterol, serum 122.0 mg/dL [facility] 0.0 - 200.0 06/11 triglyceride, serum, fasting [facility].0 [facility]0 [facility]/02 triglyceride, serum, fasting 120 mg/dL [facility] 12/02 HDL cholesterol, serum 57 mg/dL [facility] 12/02 LDL cholesterol, serum 126 mg/dL [facility] 12/02 cholesterol, serum 209 mg/dL [facility] 08/06 triglyceride, serum, fasting 96 mg/dL [facility] 08/06 HDL cholesterol, serum 60 mg/dL [facility] 08/06 lipoprotein, beta, serum, point, quantitative, calculated 49 mg/dL [facility] 08/06 cholesterol, serum 128 mg/dL [facility] 08/06 thyroid stimulating hormone, serum 1.09 u[IU]/mL [facility] 08/06 alanine aminotransferase (SGPT), serum 22 1/L [facility] 08/06 aspartate aminotransferase (SGOT), serum 27 1/L [facility] 08/06 creatinine, serum 1.13 mg/dL [facility] 08/06 potassium, serum 4.4 mmol/L [facility] 08/06 sodium, serum 140 mmol/L [facility] 07/07 creatine kinase, serum 116 1/L [facility] 29-143 Normal 07/07 alanine aminotransferase (SGPT), serum 20 1/L [facility] 6-40 Normal 07/07 aspartate aminotransferase (SGOT), serum 24 1/L [facility] 10-35 Normal 07/07 alkaline phosphatase, serum 142 1/L [facility] 33-130 High 07/07 bilirubin, serum, indirect 0.3 MG/DL (CALC) [facility] 0.2-1.2 Normal 07/07 bilirubin, serum, direct 0.1 mg/dL [facility] < OR = 0.2 Normal 07/07 bilirubin, serum, total 0.4 mg/dL [facility] 0.2-1.2 Normal 07/07 albumin/globulin ratio, serum 1.2 (calc) [facility] 1.0-2.5 Normal 07/07 globulins, serum, total 3.0 G/DL (CALC) [facility] 1.9-3.7 Normal 07/07 albumin, serum 3.7 g/dL [facility] 3.6-5.1 Normal 07/07 protein, total, serum 6.7 g/dL [facility] 6.1-8.1 Normal 07/07 calcium, serum 8.6 mg/dL [facility] 8.6-10.4 Normal 07/07 carbon dioxide, venous blood 30 mmol/L [facility] 21-33 Normal 07/07 chloride, serum 101 mmol/L [facility] 98-110 Normal 07/07 potassium, serum 4.4 mmol/L [facility] 3.5-5.3 Normal 07/07 sodium, serum 143 mmol/L [facility] 135-146 Normal 07/07 urea nitrogen/creatinin e ratio, serum 13 (calc) [facility] 6-22 Normal 07/07 Estimated Glomerular Filtration Rate (calc) 68 mL/min/{1.73 _m2} [facility] > OR = 60 Normal 07/07 creatinine, serum 1.03 mg/dL [facility] 0.50-0.99 High 07/07 urea nitrogen, blood 13 mg/dL [facility] 7-25 Normal 07/07 blood glucose, random 144 mg/dL [facility] 65-99 High 07/07 cholesterol/HDL ratio, serum, percent 2.1 (calc) [facility] < OR = 5.0 Normal 07/07 LDL cholesterol, serum 46 MG/DL (CALC) [facility] <130 Normal 07/07 triglyceride, serum, fasting 81 mg/dL [facility] <150 Normal 07/07 HDL cholesterol, serum 56 mg/dL [facility] > OR = 46 Normal 07/07 cholesterol, serum 118 mg/dL [facility] 125-200 Low 02/03 lipoprotein, beta, serum, point, quantitative, calculated 112 mg/dL [facility] 02/03 cholesterol, serum 197 mg/dL [facility] 02/03 thyroid stimulating hormone, serum 4.77 u[IU]/mL [facility] 02/03 alanine aminotransferase (SGPT), serum 29 1/L [facility] 02/03 aspartate aminotransferase (SGOT), serum 33 1/L [facility] 02/03 creatinine, serum 1.09 mg/dL [facility] 02/03 potassium, serum 3.8 mmol/L [facility] 02/03 sodium, serum 137 mmol/L [facility] prothrombin time (patient) 10.4 s Jasmine Gruenenfelder international normalized ratio (INR) 1.0 Jasmine Velasquez Normal HISTORY OF MEDICATION USE Medication Status Instructions Dates Provider Indications Com ments benazepril 20 mg tablet active TAKE 1 TABLET ONCE DAILY 07/19 Rebeca Holt Praluent Pen 150 mg/mL pen injector active INJECT 1 PEN UNDER THE SKIN ONCE EVERY 2 WEEKS 01/21 Estee Harman benazepril 20 mg tablet completed Take 1 tablet by mouth once a day 10/28 - 07/19 Rebeca Holt Jardiance 10 mg tablet active Take 1 tablet by mouth once a day 10/28 Jasmine Velasquez metoprolol tartrate 50 mg tablet active Take 1 tablet by mouth twice a day 10/28 Jasmine Velasquez Praluent Pen 150 mg/mL pen injector completed Inject 1 pen injector subcutaneously every two weeks 10/28 - 01/21 Jasmine Velasquez Praluent Pen 150 mg/mL pen injector completed INJECT 1 PEN UNDER THE SKIN ONCE EVERY 2 WEEKS 07/21 - 10/28 Jasmine Velasquez Praluent Pen 150 mg/mL pen injector completed Inject 1 pen injector subcutaneously once every two weeks 09/10 - 07/21 Karthik ZHANG S/P LAD STENT 03/2012 Repatha SureClick 140 mg/mL pen injector completed Inject 1 pen injector subcutaneously once every two weeks - 09/10 Teresa Putnam Praluent Pen 150 mg/mL pen injector completed Inject 1 pen injector subcutaneously every two weeks 08/26 - 09/04 Jasmine Velasquez Repatha SureClick 140 mg/mL pen injector completed INJECT 140 MG SUBCUTANEOUSLY EVERY 2 WEEKS 02/01 - 08/26 Leyla Marmolejo RN Repatha SureClick 140 mg/mL pen injector completed INJECT 140MG SUBCUTANEOUSLY EVERY 2 WEEKS 06/02 - 02/01 Delmy Eaton metoprolol tartrate 50 mg tablet completed TAKE 1 TABLET TWICE A DAY 06/02 - 10/28 Jasmine Velasquez Nitrostat 0.4 mg tablet, sublingual active 1 tablet under tongue as directed as needed 1 tablet under tongue for chest pain. May repeat every 5 minutes if still having chest pain- to max of 3 tablets per episode. 01/13 Ricardo Tomlin MD METOPROLOL TARTRATE 25 MG ORAL TABLET completed Take one tablet every morning 01/13 - Ricardo Tomlin MD Ozempic 0.25 mg or 0.5 mg(2 mg/1.5 mL) pen injector active Inject 0.5 mg subcutaneously once a week 07/08 Mally Carlos CONTRAVE 8-90 MG ORAL TABLET EXTENDED RELEASE 12 HOUR completed Take as directed 06/29 - 10/28 Michael Bustillos cyanocobalamin (vitamin B-12) 1,000 mcg tablet extended release active Take 1 tablet once a day 06/29 Scarlet Christopher ammonium lactate 12% lotion active Apply to skin once a day 06/29 Ame Cardona DICLOFENAC SODIUM 1 % TRANSDERMAL GEL completed DIRECTED - 10/28 Michael Bustillos ALEVE CAPSULE active as needed 07/07 Jasmine Velasquez Calcium 600 + D(3) 600 mg-5 mcg (200 unit) tablet active Take 1 once a day 07/07 Jasmine Velasquez Metrogel 1% gel active Use as directed 07/07 Mally Carlos ketoconazole 2% cream active Use as directed 07/07 Jasmine Velasquez GLIMEPIRIDE 2 MG ORAL TABLET completed take one pill a day 07/07 - 10/28 Michael Bustillos Jardiance 10 mg tablet completed 1 tablet once a day - 10/28 Jasmine Velasquez Vesicare 5 mg tablet active once a day Mateus Ford LANTUS 100 UNIT/ML SUBCUTANEOUS SOLUTION completed 30 units once daily - 01/26 Jasmine Velasquez FLUCONAZOLE 200 MG ORAL TABLET completed 01/18 - 01/24 Nitish Roberts VYTONE 1-1.9 % EXTERNAL CREAM completed Apply to affected areas as needed - 01/26 Jasmine Velasquez levothyroxine 100 mcg tablet active Take 1 tablet once a day 01/18 Scarlet Christopher FLUCONAZOLE 150 MG ORAL TABLET completed every week prn - 01/26 Mateus Ford INVOKANA 100MG TABS (CANAGLIFLOZIN) completed daily 01/18 - 01/26 Jasmine Velasquez VESICARE 5 MG ORAL TABLET completed daily - Nitish Roberts Repgeorgie SureClick 140 mg/mL pen injector completed Inject subcutaneously every 2 weeks [facility]# [address]-03 06/25 - 06/02 Delmy Eaton PLACEBO #00 CAPS (PLACEBO) STUDY (DO NOT REMOVE) completed regen 727 75mg every 2 weeks - EZETIMBE 10MG - Nitish Roberts CLOTRIMAZOLE-BETAME THASONE 1-0.05 % EXTERNAL CREAM completed use as needed for rash - 02/15 Nitish Eaton RN KETOCONAZOLE 2 % EXTERNAL CREAM completed - 01/17 Nitish Roberts NORITATE 1 % EXTERNAL CREAM completed - 01/26 Mateus Ford SIMVASTATIN 40 MG ORAL TABLET completed ONE TAB. DAILY - 11/20 Nitish Roberts EFFIENT 10 MG ORAL TABLET completed One tablet daily - 06/22 Ricardo Tomlin MD Co Q-10 (with Vit E) 100-5 mg-unit capsule active Take 200 once a day Nitish Eaton RN PRILOSEC 20 MG ORAL CAPSULE DELAYED RELEASE active Take once a day Ricardo Tomlin MD ASPIRIN 81 MG ORAL TABLET active 1 tablet once a day Nitish Eaton RN AMARYL 2 MG ORAL TABLET completed take one twice daily - 02/15 Nitish Eaton RN GLUCOPHAGE 500 MG ORAL TABLET active Take 2 twice a day Jasmine Velasquez LANTUS 100 UNIT/ML SUBCUTANEOUS SOLUTION completed 15u a day - 01/26 Jasmine Velasquez ENABLEX 15 MG ORAL TABLET EXTENDED RELEASE 24 HOUR completed take one a day - 10/27 Nitish Eaton RN PRAVACHOL 20 MG ORAL TABLET completed take one a day - 06/13 Nitish Eaton RN LEVOTHROID 125 MCG TABS completed take one a day - Nitish Roberts HYDROCHLOROTHIAZIDE 12.5 MG ORAL TABLET completed take one a day - 02/15 Nitish Eaton RN benazepril 20 mg tablet completed Take 1 tablet once a day 07/04 - 10/28 Jasmine Velasquez SOCIAL HISTORY Date Observation Value Provider drug use none Rene Castrejonty alcohol use no Rene Kemmerer passive cigarette sm neto exposure no Rene Kemmerer smoking status Never smoker Rene Castrejonty social history E&M Marital Statu s: L gregory with family/friends E thnicity: Smoking History: P yusef has never smoked. Simon Mallory social history reviewed E&M revi ewed - no changes required Simon Mallory exercise type stairs Mica Marmolejo physical exercise, f requency, days per week 1 /wk Mica Marmolejo caffeine use, averag e drinks per day 1 /d Mica Marmolejo passive cigarette sm neto exposure no Mica Marmolejo smoking status Never smoker Mica Marmolejo social history E&M Marital Statu s: L gregory with family/friends E thnicity: Smoking History: P yusef has never smoked. Delmy Eaton social history reviewed E&M revi ewed - no changes required Delmy Eaton exercise type stairs Agueda leo physical exercise, f requency, days per week 1 /wk Agueda Morel caffeine use, averag e drinks per day 1 /d Agueda Morel passive cigarette sm neto exposure no Agueda Morel smoking status Never smoker Agueda jacobs social history reviewed E&M revi ewed - no changes required Ricardo Tomlin MD exercise type stairs Patti Smith physical exercise, f requency, days per week 1 /wk Chastity Sarah caffeine use, averag e drinks per day 1 /d Savity Sarah passive cigarette sm neto exposure no Patti Smith smoking status Never smoker Patti Arroyo e social history E&M Marital Statu s: L gregory with family/friends E thnicity: Smoking History: P yusef has never smoked. Ricardo Tomlin MD social history reviewed E&M revi ewed - no changes required Ricardo Tomlin MD smoking status Never smoker Mally jose exercise type stairs Devendra howard physical exercise, f requency, days per week 1 /wk Devendra Browne caffeine use, averag e drinks per day 1 /d Devendra Pavan passive cigarette sm neto exposure no Devendra [facility] smoking status Never smoker Devendra [employer] [facility] [place] social history reviewed E&M revi ewed - no changes required [facility] social history reviewed E&M revi ewed - no changes required Devendra [facility] exercise type stairs Scarlet loyd physical exercise, f requency, days per week 1 /wk Scarlet Christopher caffeine use, averag e drinks per day 1 /d Scarlet Christopher passive cigarette sm neto exposure no Scarlet Christopher smoking status Never smoker Scarlet mckay social history reviewed E&M revi ewed - no changes required Devendra Browne exercise type stairs Sheila Kelly physical exercise, f requency, days per week 1 /wk Devendra Pavan caffeine use, averag e drinks per day 1 /d Sheila Kelly passive cigarette sm neto exposure no Sheila Kelly smoking status Never smoker Sheila Kelly social history reviewed E&M revi ewed - no changes required Ricardo Tomlin MD exercise type stairs Scarlet Zara ll physical exercise, f requency, days per week no Scarlet Christopher caffeine use, averag e drinks per day 1 /d Scarlet Christopher passive cigarette sm neto exposure no Scarlet Christopher smoking status Never smoker Scarlet Jose ell alcohol use no Devendra Gayleanirudh atkins social history reviewed E&M revi ewed - no changes required Devendra Browne exercise type stairs Scarlet Parkervin ll physical exercise, f requency, days per week no Scarlet Ashwin caffeine use, averag e drinks per day 1 /d Scarlet Christopher passive cigarette sm neto exposure no Scarlet Christopher smoking status Never smoker Scarlet Jose ell social history reviewed E&M revi ewed - no changes required Ricardo Tomlin MD number of grandchildren Ricardo Tomlin MD Kill een Bustillos exercise type stairs [place] Bustillos alcohol use, average drinks per day social basis only [place] Bustillos alcohol use no Michael Bustillos caffeine use, averag e drinks per day 1 /d [place] Bustillos drug use none Michael Bustillos passive cigarette sm neto exposure no Michael Bustillos smoking status Never smoker Michael Borodri m social history reviewed E&M revi ewed - no changes required Ricardo Tomlin MD exercise type stairs Ame Dulce alcohol use, average drinks per day social basis only Ame Dulce alcohol use no Ame Dulce caffeine use, averag e drinks per day 1 /d Ame Dulce drug use none Ame Dulce passive cigarette sm neto exposure no Ame Dulce smoking status Never smoker Ame Dulce exercise type stairs Sherri Culclager caffeine use, averag e drinks per day 1 /d Sherri Culclager exercise type stairs Sherri Culclager caffeine use, averag e drinks per day 1 /d Sherri Culclager smoking status Never smoker Sherri Culclage r smoking status Never smoker Sherri Culclage r social history reviewed E&M revi ewed - no changes required Ricardo Tomlin MD physical exercise, f requency, days per week no Jasmine Velasquez alcohol use, average drinks per day social basis only Jasmine Velasquez alcohol use no Jasmine aroraer caffeine use, averag e drinks per day 1+ Jasmine Velasquez drug use none Jasmine aroraer passive cigarette sm neto exposure no Jasmine Velasquez smoking status Never smoker Jasmine rivera social history reviewed E&M revi ewed - no changes required Ricardo Tomlin MD physical exercise, f requency, days per week no Jasmine Velasquez alcohol use, average drinks per day social basis only Jasmine Velasquez alcohol use no Jasmine aroraer caffeine use, averag e drinks per day 1+ Jasmine Velasquez drug use none Jasmine aroraer passive cigarette sm neto exposure no Jasmine Velasquez smoking status Never smoker Jasmine Galavizfrank rivera social history reviewed E&M revi ewed - no changes required Ricardo Tomlin MD physical exercise, f requency, days per week no Mateus Ford alcohol use, average drinks per day social basis only Mateus Ford alcohol use no Mateus fisheron caffeine use, averag e drinks per day 1+ Mateus Ford drug use none Mateus bonilla passive cigarette sm neto exposure no Mateus Ford smoking status Never smoker Mateus Albrecht micky physical exercise, f requency, days per week no Ricardo Tomlin MD alcohol use, average drinks per day social basis only Ricardo Tomlin MD alcohol use no Ricardo Tomlin MD caffeine use, averag e drinks per day 1+ Ricardo Tomlin MD drug use none Ricardo Tomlin MD passive cigarette sm neto exposure no Ricardo Tomlin MD smoking status Never smoker Ricardo Rodriges social history reviewed E&M i ewed - no changes required Ricardo Tomlin MD social history reviewed E&M brian ewed - no changes required Devendra Browne social history E&M Marital Statu s: L gregory with family/friends E thnicity: Smoking History: P yusef has never smoked. Devendra Browne physical exercise, f requency, days per week no Jasmine Velasquez alcohol use, average drinks per day social basis only Jasmine Velasquez alcohol use no Jasmine greer caffeine use, averag e drinks per day yes Jasmine Velasquez drug use none Jasmine greer passive cigarette sm neto exposure no Jasmine Eva smoking status Never smoker Jasmine Gudino nicole social history reviewed E&M revi ewed - no changes required Ricardo Tomlin MD physical exercise, f requency, days per week no Mateus Ford alcohol use, average drinks per day social basis only Mateus Ford alcohol use no Mateus Buckner [place] caffeine use, averag e drinks per day yes Mateus Chapaenson drug use none Mateus Buckner [place] passive cigarette sm neto exposure no Mateus Ford smoking status Never smoker Mateus Albrecht micky social history E&M Marital Statu s: L gregory with family/friends E thnicity: Smoking History: P yusef has never smoked. Devendra Browne social history reviewed E&M revi ewed - no changes required Devendra Browne physical exercise, f requency, days per week no Mateus Ford alcohol use, average drinks per day social basis only Mateus Ford alcohol use no Mateus Buckner chad caffeine use, averag e drinks per day yes MateusAnalilia Ford drug use none Mateus Buckner chad passive cigarette sm neto exposure no Mateusrai Ford smoking status Never smoker Mateus Albrecht micky social history reviewed E&M revi ewed - no changes required Ricardo Tomlin MD physical exercise, f requency, days per week no Mateus Ford alcohol use, average drinks per day social basis only Mateus Ford caffeine use, averag e drinks per day yes Mateus Ford drug use none Mateus Dudley bonilla passive cigarette sm neto exposure no MateusAnalilia Ford smoking status Never smoker Mateus Price physical exercise, f requency, days per week no Brittany Blunt alcohol use, average drinks per day social basis only Brittany Blunt caffeine use, averag e drinks per day yes Brittany Blunt drug use none Brittany Blunt passive cigarette sm neto exposure no Brittany Blunt smoking status Never smoker Brittany Blunt physical exercise, f requency, days per week no Brittany Blunt alcohol use, average drinks per day social basis only Brittany Blunt caffeine use, averag e drinks per day yes Brittany Blunt drug use none Brittany Blunt passive cigarette sm neto exposure no Brittany Blunt smoking status Never smoker Brittany Blunt social history reviewed E&M revi ewed - no changes required Brittany Blunt social history reviewed E&M reviewed Nitish Eaton RN quit smoking, stage relapse Nitish harris RN social history reviewed E&M reviewed Nitish Eaton RN drug use none Satish Ghotra MD social history reviewed E&M reviewed Satish Ghotra MD social history reviewed E&M reviewed Nitish Eaton RN social history reviewed E&M reviewed Nitish Eaton RN social history E&M Marital Statu s: L gregory with family/friends E thnicity: Nitish Eaton RN social history reviewed E&M reviewed Nitish Eaton RN drug use no Jasmine greer passive cigarette sm neto exposure no Jasmine Velasquez smoking status never smoker Jasmine rivera physical exercise, f requency, days per week no [facility] caffeine use, averag e drinks per day yes [facility] alcohol use, average drinks per day social basis only [facility] smoking status Non-smoker [facility] FUNCTIONAL STATUS Date Observation Value Provider HRA, CV Assess/Plan, Angina (inactive) Management Plan continue current therapy Simon Delgadilloandrew HRA, CV Assess/Plan, Angina (inactive) Management Plan continue current therapy Delmy Eaton HRA, CV Assess/Plan, Angina (inactive) Management Plan continue current therapy Ed Simszon HRA, CV Assess/Plan, Angina (inactive) Management Plan continue current therapy Ricardo Tomlin MD HRA, CV Assess/Plan, Angina (inactive) Management Plan continue current therapy [facility] HRA, CV Assess/Plan, Angina (inactive) Management Plan antianginal therapy [facility] HRA, CV Assess/Plan, Angina (inactive) Management Plan continue current therapy Ricardo Tomlin MD HRA, CV Assess/Plan, Angina (inactive) Management Plan antianginal therapy Ricardo Tomlin MD HRA, CV Assess/Plan, Angina (inactive) Management Plan schedule PCI Ricardo Tomlin MD HRA, CV Assess/Plan, Angina (inactive) Management Plan continue current therapy Ricardo Tomlin MD HRA, CV Assess/Plan, Angina (inactive) Management Plan continue current therapy Ricardo Tomlin MD HRA, CV Assess/Plan, Angina (inactive) Management Plan continue current therapy Ricardo Tomlin MD HRA, CV Assess/Plan, Angina (inactive) Management Plan continue current therapy Ricardo Tomlin MD HRA, CV Assess/Plan, Angina (inactive) Management Plan continue current therapy Ricardo Tomlin MD HRA, CV Assess/Plan, Angina (inactive) Management Plan continue current therapy Ricardo Tomlin MD HRA, CV Assess/Plan, Angina (inactive) Management Plan continue current therapy Ricardo Tomlin MD HRA, CV Assess/Plan, Angina (inactive) Management Plan continue current therapy Ricardo Tomlin MD MENTAL STATUS Date Observation Value Provider assessment of judgme nt and insight E&M Alert and oriented to time, place and person. Mood and affect are normal. Nitish Eaton RN assessment of judgme nt and insight E&M Alert and oriented to time, place and person. Mood and affect are normal. Nitish Eaton RN assessment of judgme nt and insight E&M Alert and oriented to time, place and person. Mood and affect are normal. Satish Ghotra MD assessment of judgme nt and insight E&M Alert and oriented to time, place and person. Mood and affect are normal. Nitish Eaton RN assessment of judgme nt and insight E&M Alert and oriented to time, place and person. Mood and affect are normal. Nitish Eaton RN assessment of judgme nt and insight E&M Alert and oriented to time, place and person. Mood and affect are normal. Nitish Eaton RN FAMILY HISTORY Family Member Condition Father Family History of Ot her Cancer Mother Family History of Hy pertension: INSURANCE PROVIDERS Payer name Policy type / Coverage type [place] [employer] party ID AETNA [facility] Other [employer] MEDICARE [place] PPO Medicare [id number] 500 ADVANCE DIRECTIVES Name Date DISCUSSED - NO DECISION MADE TREATMENT PLAN Date Name Performer [id number],S, H er updated medication list for this problem includes: Praluent Pen 150 Mg/ml Pen Injector (Alirocumab) ..... Inject 1 pen injector subcutaneously once every two weeks Simon Mallory [id number],S, B P today: 141/76 P rior BP: 120/62 (04/17/2022) Labs Reviewed: C reat: 1.00 (12/15/2018) C hol: 105 (10/12/2019) HDL: 59 (10/12/2019) LDL: 27 (03/23/2020) H er updated medication list for this problem includes: Metoprolol Tartrate 50 Mg Tablet (Metoprolol tartrate) ..... Take 1 tablet twice a day Benazepril 20 Mg Tablet (Benazepril) ..... Take 1 tablet once a day Simon Mallory [id number],C,H ome sleep study was negative for Sleep Apnea. Simon Mallory [id number],S,N o chest pain or SOB. Her updated medication list for this problem includes: Nitrostat 0.4 Mg Tablet, Sublingual (Nitroglycerin) ..... 1 tablet under tongue as directed as needed 1 tablet under tongue for chest pain. may repeat every 5 minutes if still having chest pain- to max of 3 tablets per episode. Metoprolol Tartrate 50 Mg Tablet (Metoprolol tartrate) ..... Take 1 tablet twice a day Benazepril 20 Mg Tablet (Benazepril) ..... Take 1 tablet once a day Simon Mallory [id number],C, She would like to have home sleep study to assess efficiency of her CPAP which she has had for 5 years. Delmy Eaton [id number],C, B P today: 120/62 P rior BP: 140/64 (10/17/2021) Labs Reviewed: C reat: 1.00 (12/15/2018) C hol: 105 (10/12/2019) HDL: 59 (10/12/2019) LDL: 27 (03/23/2020) H er updated medication list for this problem includes: Metoprolol Tartrate 50 Mg Tablet (Metoprolol tartrate) ..... Take 1 tablet twice a day Benazepril 20 Mg Tablet (Benazepril) ..... Take 1 tablet once a day Delmy Eaton [id number],C, H er updated medication list for this problem includes: Repatha Sureclick 140 Mg/ml Pen Injector (Evolocumab) ..... Inject 140 mg subcutaneously every 2 weeks Delmy Eaton [id number],C, H er updated medication list for this problem includes: Jardiance 10 Mg Tablet (Empagliflozin) ..... 1 tablet once a day Benazepril 20 Mg Tablet (Benazepril) ..... Take 1 tablet once a day Ozempic 0.25 Mg Or 0.5 Mg(2 Mg/1.5 Ml) Pen Injector (Semaglutide) ..... Inject 0.5 mg subcutaneously once a week Delmy Eaton [id number],C, H er updated medication list for this problem includes: Levothyroxine 100 Mcg Tablet (Levothyroxine) ..... Take 1 tablet once a day Demly Eaton [id number],C,P t denies SOB and chest pain. BP and heart rate well contorollled. Her updated medication list for this problem includes: Metoprolol Tartrate 50 Mg Tablet (Metoprolol tartrate) ..... Take 1 tablet twice a day Benazepril 20 Mg Tablet (Benazepril) ..... Take 1 tablet once a day Nitrostat 0.4 Mg Tablet, Sublingual (Nitroglycerin) ..... Tablet under tongue as needed Delmyandrews Sahuisai [id number],S, H er updated medication list for this problem includes: Metoprolol Tartrate 50 Mg Tablet (Metoprolol tartrate) ..... Take 1 tablet twice a day Benazepril 20 Mg Tablet (Benazepril) ..... Take 1 tablet once a day Ed Mcclelland [id number],W,S he noted heart rate runs high, 100-110 at home, denies palpitations and will increase metoprolol to 50mg BID. Ed Mcclelland [id number],S, H er updated medication list for this problem includes: Jardiance 10 Mg Tablet (Empagliflozin) ..... 1 tablet once a day Benazepril 20 Mg Tablet (Benazepril) ..... Take 1 tablet once a day Ozempic 0.25 Mg Or 0.5 Mg(2 Mg/1.5 Ml) Pen Injector (Semaglutide) ..... Inject 0.5 mg subcutaneously once a week Ed Mcclelland [id number],S, H er updated medication list for this problem includes: Metoprolol Tartrate 50 Mg Tablet (Metoprolol tartrate) ..... Take 1 tablet twice a day Benazepril 20 Mg Tablet (Benazepril) ..... Take 1 tablet once a day Nitrostat 0.4 Mg Tablet, Sublingual (Nitroglycerin) ..... Tablet under tongue as needed Ed Stas [id number],SDelmy [id number],C, H er updated medication list for this problem includes: Levothyroxine 100 Mcg Tablet (Levothyroxine) ..... Take 1 tablet once a day [facility] [id number],C, H er updated medication list for this problem includes: Jardiance 10 Mg Tablet (Empagliflozin) ..... 1 tablet once a day Benazepril 20 Mg Tablet (Benazepril) ..... Take 1 tablet once a day Ozempic 0.25 Mg Or 0.5 Mg(2 Mg/1.5 Ml) Pen Injector (Semaglutide) ..... Inject 0.5 mg subcutaneously once a week [facility] [id number],S, E ncouraged weight loss. [facility] [id number],C, H er updated medication list for this problem includes: Repatha Sureclick 140 Mg/ml Pen Injector (Evolocumab) ..... Inject 140mg subcutaneously every 2 weeks Delmy Eaton [id number],C, B P today: 140/70 P rior BP: 142/70 (04/19/2020) Labs Reviewed: C reat: 1.00 (12/15/2018) C hol: 105 (10/12/2019) HDL: 59 (10/12/2019) LDL: 27 (03/23/2020) H er updated medication list for this problem includes: Benazepril 20 Mg Tablet (Benazepril) ..... Take 1 tablet once a day Metoprolol Tartrate 25 Mg Tablet (Metoprolol tartrate) ..... Take 1 tablet by mouth twice a day Delmy Eaton [id number],C,O erwin doing well. Denies chest pain or SOB. Will schedule a f/u echo. H er updated medication list for this problem includes: Metoprolol Tartrate 25mg Tablets (Metoprolol tartrate) ..... Take 1 tablet by mouth twice daily Nitrostat 0.4 Mg Sublingual Tablet Sublingual (Nitroglycerin) ..... Apply one tab under tongue every 5 minutes for 3 total doses as needed for chest pain. if no relief after 3rd dose, go to er Benazepril Hcl 20 Mg Oral Tablet (Benazepril hcl) ..... Take one tab daily Aspirin 81 Mg Oral Tablet (Aspirin) ..... One tab. daily Delmy Eaton [id number],C, She is a candidate for catarcat surgery. She is cleared from cardiology perspective. She may hold her aspirin for any amount of time requested by the surgeon. Delmy Sahuluis Take your medication s every day as directed. Failing to take your medication properly can have a negative impact on your treatment. Please monitor your blood pressure and heart rate regularly, at least weekly. Sit quietly for 5 minutes before taking your blood pressure and heart rate. Recommend a healthy diet plan which would include lots of vegetables and fruits, poultry and fish, low fat dairy products. It would include lower quantities of carbohydrates, like breads, potatoes, rice and pasta. Only small amounts of sweets should be included. Recommend a low salt, or no added salt diet. Exercise of at least 3 times a week is recommended. Even small amounts of exercise regularly can be less intimidating but still beneficial. Please contact us if you have new Chest Pain, Shortness of Breath, Palpitations, Dizziness, or Edema. Alicia Haines Take your medication s every day as directed. Failing to take your medication properly can have a negative impact on your treatment. Please monitor your blood pressure and heart rate regularly, at least weekly. Sit quietly for 5 minutes before taking your blood pressure and heart rate. Recommend a healthy diet plan which would include lots of vegetables and fruits, poultry and fish, low fat dairy products. It would include lower quantities of carbohydrates, like breads, potatoes, rice and pasta. Only small amounts of sweets should be included. R ecommend a low salt, or no added salt diet. Exercise of at least 3 times a week is recommended. Even small amounts of exercise regularly can be less intimidating but still beneficial. Please contact us if you have new Chest Pain, Shortness of Breath, Palpitations, Dizziness, or Edema. Alicia Haines Cardiology: H er updated medication list for this problem includes: Metoprolol Tartrate 50 Mg Tablet (Metoprolol tartrate) ..... Take 1 tablet twice a day Benazepril 20 Mg Tablet (Benazepril) ..... Take 1 tablet once a day BP today: 134/85 P rior BP: 141/76 (10/16/2022) Labs Reviewed: C reat: 1.00 (12/15/2018) C hol: 105 (10/12/2019) HDL: 59 (10/12/2019) LDL: 27 (03/23/2020) T (10/12/2019) Rene Morrison Cardiology: H er updated medication list for this problem includes: Praluent Pen 150 Mg/ml Pen Injector (Alirocumab) ..... Inject 1 pen under the skin once every 2 weeks Rene Morrison Cardiology:stable. D enies angina, SOB. Continue medical therapy Rene Morrison Cardiology: N o chest pain or SOB. Her updated medication list for this problem includes: Nitrostat 0.4 Mg Tablet, Sublingual (Nitroglycerin) ..... 1 tablet under tongue as directed as needed 1 tablet under tongue for chest pain. may repeat every 5 minutes if still having chest pain- to max of 3 tablets per episode. Metoprolol Tartrate 50 Mg Tablet (Metoprolol tartrate) ..... Take 1 tablet twice a day Benazepril 20 Mg Tablet (Benazepril) ..... Take 1 tablet once a day Rene Morrison Cardiology: H er updated medication list for this problem includes: Praluent Pen 150 Mg/ml Pen Injector (Alirocumab) ..... Inject 1 pen injector subcutaneously once every two weeks Falacy Brookmanan Cardiology: B P today: 141/76 P rior BP: 120/62 (04/17/2022) Labs Reviewed: C reat: 1.00 (12/15/2018) C hol: 105 (10/12/2019) HDL: 59 (10/12/2019) LDL: 27 (03/23/2020) Her updated medication list for this problem includes: Metoprolol Tartrate 50 Mg Tablet (Metoprolol tartrate) ..... Take 1 tablet twice a day Benazepril 20 Mg Tablet (Benazepril) ..... Take 1 tablet once a day Simon Mallory Cardiology:Home slee p study was negative for Sleep Apnea. Simon Mallory Cardiology:No chest pain or SOB. Her updated medication list for this problem includes: Nitrostat 0.4 Mg Tablet, Sublingual (Nitroglycerin) ..... 1 tablet under tongue as directed as needed 1 tablet under tongue for chest pain. may repeat every 5 minutes if still having chest pain- to max of 3 tablets per episode. Metoprolol Tartrate 50 Mg Tablet (Metoprolol tartrate) ..... Take 1 tablet twice a day Benazepril 20 Mg Tablet (Benazepril) ..... Take 1 tablet once a day Simon Mallory Cardiology: She woul d like to have home sleep study to assess efficiency of her CPAP which she has had for 5 years. Delmy Eaton Cardiology: B P today: 120/62 P rior BP: 140/64 (10/17/2021) Labs Reviewed: C reat: 1.00 (12/15/2018) C hol: 105 (10/12/2019) HDL: 59 (10/12/2019) LDL: 27 (03/23/2020) Her updated medication list for this problem includes: Metoprolol Tartrate 50 Mg Tablet (Metoprolol tartrate) ..... Take 1 tablet twice a day Benazepril 20 Mg Tablet (Benazepril) ..... Take 1 tablet once a day Delmy Eaton Cardiology: H er updated medication list for this problem includes: Repatha Sureclick 140 Mg/ml Pen Injector (Evolocumab) ..... Inject 140 mg subcutaneously every 2 weeks Delmyandrews Sahuisai Cardiology: H er updated medication list for this problem includes: Jardiance 10 Mg Tablet (Empagliflozin) ..... 1 tablet once a day Benazepril 20 Mg Tablet (Benazepril) ..... Take 1 tablet once a day Ozempic 0.25 Mg Or 0.5 Mg(2 Mg/1.5 Ml) Pen Injector (Semaglutide) ..... Inject 0.5 mg subcutaneously once a week Delmy Jacobsisai Cardiology: H er updated medication list for this problem includes: Levothyroxine 100 Mcg Tablet (Levothyroxine) ..... Take 1 tablet once a day Delmy Jacobsisai Cardiology:Pt denies SOB and chest pain. BP and heart rate well contorollled. Her updated medication list for this problem includes: Metoprolol Tartrate 50 Mg Tablet (Metoprolol tartrate) ..... Take 1 tablet twice a day Benazepril 20 Mg Tablet (Benazepril) ..... Take 1 tablet once a day Nitrostat 0.4 Mg Tablet, Sublingual (Nitroglycerin) ..... Tablet under tongue as needed Delmy Jacobsisai Cardiology: H er updated medication list for this problem includes: Metoprolol Tartrate 50 Mg Tablet (Metoprolol tartrate) ..... Take 1 tablet twice a day Benazepril 20 Mg Tablet (Benazepril) ..... Take 1 tablet once a day Ed Mcclelland Cardiology:She noted heart rate runs high, 100-110 at home, denies palpitations and will increase metoprolol to 50mg BID. Ed Mcclelland Cardiology: H er updated medication list for this problem includes: Jardiance 10 Mg Tablet (Empagliflozin) ..... 1 tablet once a day Benazepril 20 Mg Tablet (Benazepril) ..... Take 1 tablet once a day Ozempic 0.25 Mg Or 0.5 Mg(2 Mg/1.5 Ml) Pen Injector (Semaglutide) ..... Inject 0.5 mg subcutaneously once a week Ed Mcclelland Cardiology: H er updated medication list for this problem includes: Metoprolol Tartrate 50 Mg Tablet (Metoprolol tartrate) ..... Take 1 tablet twice a day Benazepril 20 Mg Tablet (Benazepril) ..... Take 1 tablet once a day Nitrostat 0.4 Mg Tablet, Sublingual (Nitroglycerin) ..... Tablet under tongue as needed Ed Mcclelland Cardiology Delmy delacruz Cardiology: H er updated medication list for this problem includes: Levothyroxine 100 Mcg Tablet (Levothyroxine) ..... Take 1 tablet once a day Delmy Eaton Cardiology: H er updated medication list for this problem includes: Jardiance 10 Mg Tablet (Empagliflozin) ..... 1 tablet once a day Benazepril 20 Mg Tablet (Benazepril) ..... Take 1 tablet once a day Ozempic 0.25 Mg Or 0.5 Mg(2 Mg/1.5 Ml) Pen Injector (Semaglutide) ..... Inject 0.5 mg subcutaneously once a week Delmy Eaton Cardiology: E ncouraged weight loss. Delmy Eaton Cardiology: H er updated medication list for this problem includes: Repkarolinaa Sureclick 140 Mg/ml Pen Injector (Evolocumab) ..... Inject 140mg subcutaneously every 2 weeks Delmy Eaton Cardiology: B P today: 140/70 P rior BP: 142/70 (04/19/2020) Labs Reviewed: C reat: 1.00 (12/15/2018) C hol: 105 (10/12/2019) HDL: 59 (10/12/2019) LDL: 27 (03/23/2020) Her updated medication list for this problem includes: Benazepril 20 Mg Tablet (Benazepril) ..... Take 1 tablet once a day Metoprolol Tartrate 25 Mg Tablet (Metoprolol tartrate) ..... Take 1 tablet by mouth twice a day Delmy Sahuisai Cardiology:Overall d oing well. Denies chest pain or SOB. Will schedule a f/u echo. H er updated medication list for this problem includes: Metoprolol Tartrate 25mg Tablets (Metoprolol tartrate) ..... Take 1 tablet by mouth twice daily Nitrostat 0.4 Mg Sublingual Tablet Sublingual (Nitroglycerin) ..... Apply one tab under tongue every 5 minutes for 3 total doses as needed for chest pain. if no relief after 3rd dose, go to er Benazepril Hcl 20 Mg Oral Tablet (Benazepril hcl) ..... Take one tab daily Aspirin 81 Mg Oral Tablet (Aspirin) ..... One tab. daily Delmyandrews Sahuisai Cardiology: She is a candidate for catarcat surgery. She is cleared from cardiology perspective. She may hold her aspirin for any amount of time requested by the surgeon. Delmy Angelito Cardiology Follow up :Encouraged weight loss. Devendra [facility] Card[facility] Follow up :TSH: 0.776 (03/23/2020) Her updated medication list for this problem includes: Levothyroxine Sodium 100 Mcg Oral Tablet (Levothyroxine sodium) ..... Take 1 tab daily Devendra [facility] Card[facility] Follow up [facility] Follow up :Labs (03/23/2020): LDL: 27 HDL: 62 TRI CHOL: 110 Her updated medication list for this problem includes: Repatha Sureclick 140 Mg/ml Subcutaneous Solution Auto-injector (Evolocumab) ..... Inject subcutaneously every 2 weeks [facility]# [id number] Devendra [facility] Cardiology Follow up :BP today: 142/70 P rior BP: 143/75 (10/27/2019) Her updated medication list for this problem includes: Metoprolol Tartrate 25 Mg Oral Tablet (Metoprolol tartrate) ..... Take one tablet daily Benazepril Hcl 20 Mg Oral Tablet (Benazepril hcl) ..... Take one tab daily Devendra [facility] Card[facility] Follow up :Labs 03/23/2020: Fasting glucose of 126. Creatinine of 0.95. BUN of 13. The following medications were removed from the medication list: Lantus 100 Unit/ml Subcutaneous Solution (Insulin glargine) ..... 15u a day Her updated medication list for this problem includes: Ozempic (0.25 or 0.5 Mg/dose) 2 Mg/1.5ml Subcutaneous Solution Pen-injector (Semaglutide) ..... Inject 0.5mg subcutaneously once weekly reduces risk of major cv events Jardiance 10 Mg Oral Tablet (Empagliflozin) ..... 1 tab daily Benazepril Hcl 20 Mg Oral Tablet (Benazepril hcl) ..... Take one tab daily Glucophage 500 Mg Oral Tablet (Metformin hcl) ..... Take 2 pills twice a day Aspirin 81 Mg Oral Tablet (Aspirin) ..... One tab. daily [facility] Cardiology Follow up :Doing well. No chest pain or SOB. Her diabetes and cardiovascular risk is appropriately treated with Metformin, Jardiance, Ozempic as well as Repatha. Will continue current medications. Her updated medication list for this problem includes: Metoprolol Tartrate 25 Mg Oral Tablet (Metoprolol tartrate) ..... Take one tablet daily Nitrostat 0.4 Mg Sublingual Tablet Sublingual (Nitroglycerin) ..... Apply one tab under tongue every 5 minutes for 3 total doses as needed for chest pain. if no relief after 3rd dose, go to er Benazepril Hcl 20 Mg Oral Tablet (Benazepril hcl) ..... Take one tab daily Aspirin 81 Mg Oral Tablet (Aspirin) ..... One tab. daily [facility] Cardiology [facility] Cardiology:Her [facility] ed medication list for this problem includes: Ozempic Solution Pen-injector (Semaglutide sopn) Jardiance 10 Mg Oral Tablet (Empagliflozin) ..... 1 tab daily Benazepril Hcl 20 Mg Oral Tablet (Benazepril hcl) ..... Take one tab daily Lantus 100 Unit/ml Subcutaneous Solution (Insulin glargine) ..... 15u a day Glucophage 500 Mg Oral Tablet (Metformin hcl) ..... Take 2 pills twice a day Aspirin 81 Mg Oral Tablet (Aspirin) ..... One tab. daily [facility]endra [facility] Cardiology:BP today: 143/75 P rior BP: 114/80 (03/08/2019) Her updated medication list for this problem includes: Metoprolol Tartrate 25 Mg Oral Tablet (Metoprolol tartrate) ..... Take one tablet daily Benazepril Hcl 20 Mg Oral Tablet (Benazepril hcl) ..... Take one tab daily [facility] Cardiology:Pt has oc casional atypical chest discomfort but has not had to use NTG. Has not felt limited. Does not want to proceed to FFR/IFR assessment at this time. If she has more severe or frequent chest pain or has to use NTG, we will reconsider further assessment/intervention. EKG is unchanged. Recent lipid panel shows LDL of 25 and triglycerides of 106. Her updated medication list for this problem includes: Metoprolol Tartrate 25 Mg Oral Tablet (Metoprolol tartrate) ..... Take one tablet daily Nitrostat 0.4 Mg Sublingual Tablet Sublingual (Nitroglycerin) ..... Apply one tab under tongue every 5 minutes for 3 total doses as needed for chest pain. if no relief after 3rd dose, go to er Benazepril Hcl 20 Mg Oral Tablet (Benazepril hcl) ..... Take one tab daily Aspirin 81 Mg Oral Tablet (Aspirin) ..... One tab. daily [facility] Cardiology:CHOL: 105 (10/12/2019) LDL: 25 (10/12/2019) HDL: 59 (10/12/2019) TRI (10/12/2019) Her updated medication list for this problem includes: Repatha Srclk 140mg/ml Pfauto Inj (Evolocumab) ..... Inject 1 pen every 2 weeks [facility] Cardiology:The patie nt is using CPAP on a regular basis. The patient has been benefiting from therapy and should continue use. [facility] Cardiology:Her updat ed medication list for this problem includes: Ozempic Solution Pen-injector (Semaglutide sopn) Jardiance 10 Mg Oral Tablet (Empagliflozin) ..... 1 tab daily Benazepril Hcl 20 Mg Oral Tablet (Benazepril hcl) ..... Take one tab daily Lantus 100 Unit/ml Subcutaneous Solution (Insulin glargine) ..... 20u a day Glucophage 500 Mg Oral Tablet (Metformin hcl) ..... Take 2 pills twice a day Aspirin 81 Mg Oral Tablet (Aspirin) ..... One tab. daily [facility] Cardiology:Her [facility] ed medication list for this problem includes: Repatha Sureclick 140 Mg/ml Subcutaneous Solution Auto-injector (Evolocumab) ..... One injection every 2 weeks [facility] Cardiology:BP today: 114/80 P rior BP: 122/70 (02/01/2019) The following medications were stopped (due to fatigue): Metoprolol Tartrate 25 Mg Oral Tablet (Metoprolol tartrate) ..... Take one tablet every morning Her updated medication list for this problem includes: Benazepril Hcl 20 Mg Oral Tablet (Benazepril hcl) ..... Take one tab daily [facility] Cardiology:She has l ess fatigue with Metoprolol daily and we will try to stop it and see if the fatigue resolves. [facility] Cardiology:Pt denies any chest pain or SOB. She just returned from a trip to [place] and had no difficulties. She has less fatigue with Metoprolol daily and we will try to stop it and see if the fatigue resolves. If she has any more chest pain, she will contact us and then we will perform FFR/IFR assessment of the diagonal branch. The following medications were stopped (due to fatigue): Metoprolol Tartrate 25 Mg Oral Tablet (Metoprolol tartrate) ..... Take one tablet every morning Her updated medication list for this problem includes: Nitrostat 0.4 Mg Sublingual Tablet Sublingual (Nitroglycerin) ..... Apply one tab under tongue every 5 minutes for 3 total doses as needed for chest pain. if no relief after 3rd dose, go to er Ginoazepril Hcl 20 Mg Oral Tablet (Benazepril hcl) ..... Take one tab daily Aspirin 81 Mg Oral Tablet (Aspirin) ..... One tab. daily [facility] follow up :Labs Reviewed: H gb: 13.3 (12/15/2018) Hct: 41.0 (12/15/2018) [facility] follow up :Labs Reviewed: H gBA1c: 7.3 (04/30/2018) Creat: 1.00 (12/15/2018) Her updated medication list for this problem includes: Ozempic Solution Pen-injector (Semaglutide sopn) Jardiance 10 Mg Oral Tablet (Empagliflozin) ..... 1 tab daily Benazepril Hcl 20 Mg Oral Tablet (Benazepril hcl) ..... Take one tab daily Lantus 100 Unit/ml Subcutaneous Solution (Insulin glargine) ..... 20u a day Glucophage 500 Mg Oral Tablet (Metformin hcl) ..... Take 2 pills twice a day Aspirin 81 Mg Oral Tablet (Aspirin) ..... One tab. daily [facility] follow up :CHOL: 119 (12/15/2018) HDL: 68 (12/15/2018) LDL: 29 (12/15/2018) TRI (12/15/2018) Her updated medication list for this problem includes: Repatha Sureclick 140 Mg/ml Subcutaneous Solution Auto-injector (Evolocumab) ..... One injection every 2 weeks [facility] follow up :BP today: 122/70 P rior BP: 124/70 (12/14/2018) Her updated medication list for this problem includes: Metoprolol Tartrate 25 Mg Oral Tablet (Metoprolol tartrate) ..... Take one tablet every morning Benazepril Hcl 20 Mg Oral Tablet (Benazepril hcl) ..... Take one tab daily [facility] follow up :Cardiac cath showed 70% ostial diagonal stenosis. We started her on Metoprolol 25mg BID and NTG sub/l. Her chest pain has improved and episodes are very brief and she has not had to use any NTG yet. She does note fatigue since starting Metoprolol. Will reduce Metoprolol to once a day and if needed, we will stop Metoprolol completely. [facility] follow up :Cardiac cath showed 70% ostial diagonal stenosis. We started her on Metoprolol 25mg BID and NTG sub/l. Her chest pain has improved and episodes are very brief and she has not had to use any NTG yet. She does note fatigue since starting Metoprolol. Will reduce Metoprolol to once a day and if needed, we will stop Metoprolol completely. She will monitor her symptoms and if she becomes more symptomatic with chest pain, we will consider IFR/FFR assessment. Her updated medication list for this problem includes: Nitrostat 0.4 Mg Sublingual Tablet Sublingual (Nitroglycerin) ..... Apply one tab under tongue every 5 minutes for 3 total doses as needed for chest pain. if no relief after 3rd dose, go to er Metoprolol Tartrate 25 Mg Oral Tablet (Metoprolol tartrate) ..... Take one tablet every morning Benazepril Hcl 20 Mg Oral Tablet (Benazepril hcl) ..... Take one tab daily Aspirin 81 Mg Oral Tablet (Aspirin) ..... One tab. daily [facility] follow up :Orders: L IPID PANEL (6133) Her updated medication list for this problem includes: Repatha Sureclick 140 Mg/ml Subcutaneous Solution Auto-injector (Evolocumab) ..... One injection every 2 weeks [facility] follow up :Orders: B ASIC METABOLIC PANEL W/EGFR (26462) Labs Reviewed: H gBA1c: 7.3 (04/30/2018) Creat: 1.00 (08/12/2017) Her updated medication list for this problem includes: Ozempic Solution Pen-injector (Semaglutide sopn) Jardiance 10 Mg Oral Tablet (Empagliflozin) ..... 1 tab daily Benazepril Hcl 20 Mg Oral Tablet (Benazepril hcl) ..... Take one tab daily Lantus 100 Unit/ml Subcutaneous Solution (Insulin glargine) ..... 25u a day Glucophage 500 Mg Oral Tablet (Metformin hcl) ..... Take 2 pills twice a day Aspirin 81 Mg Oral Tablet (Aspirin) ..... One tab. daily Devendra [facility] follow up :BP today: 124/70 P rior BP: 128/80 (10/28/2018) Her updated medication list for this problem includes: Benazepril Hcl 20 Mg Oral Tablet (Benazepril hcl) ..... Take one tab daily Devendra [facility] follow up :Myoview scan showed a moderate size, moderate severity, partially reversible inferior wall defect consistent with ischemia. She's still having chest discomfort and we will schedule cardiac cath. Devendra [facility] follow up :Myoview scan showed a moderate size, moderate severity, partially reversible inferior wall defect consistent with ischemia. She's still having chest discomfort and we will schedule cardiac cath. Her updated medication list for this problem includes: Benazepril Hcl 20 Mg Oral Tablet (Benazepril hcl) ..... Take one tab daily Aspirin 81 Mg Oral Tablet (Aspirin) ..... One tab. daily [facility]:She repor ts HgA1c improved to ~6%. The following medications were removed from the medication list: Glimepiride 2 Mg Oral Tablet (Glimepiride) ..... Take one pill a day & #13;Her updated medication list for this problem includes: Ozempic Solution Pen-injector (Semaglutide sopn) Jardiance 10 Mg Oral Tablet (Empagliflozin) ..... 1 tab daily Benazepril Hcl 20 Mg Oral Tablet (Benazepril hcl) ..... Take one tab daily Lantus 100 Unit/ml Subcutaneous Solution (Insulin glargine) ..... 35u a day Glucophage 500 Mg Oral Tablet (Metformin hcl) ..... Take 2 pills twice a day Aspirin 81 Mg Oral Tablet (Aspirin) ..... One tab. daily [facility]:CHOL: 122 (08/18/2018) LDL: 33 (08/18/2018) HDL: 66 (08/18/2018) T (08/18/2018) Her updated medication list for this problem includes: Repatha Sureclick 140 Mg/ml Subcutaneous Solution Auto-injector (Evolocumab) ..... One injection every 2 weeks [facility]:BP today: 128/80 P rior BP: 122/80 (04/28/2018) Her updated medication list for this problem includes: Benazepril Hcl 20 Mg Oral Tablet (Benazepril hcl) ..... Take one tab daily [facility]:Pt noted occasional episodes of chest pressure. Will obtain stress myoview and echo. Her updated medication list for this problem includes: Benazepril Hcl 20 Mg Oral Tablet (Benazepril hcl) ..... Take one tab daily Aspirin 81 Mg Oral Tablet (Aspirin) ..... One tab. daily [facility]:She had s ome episodes of dizziness. She had a Zio patch last year and no significant bradycardia was noted. [facility]:Pt noted occasional episodes of chest pressure. Will obtain stress myoview and echo. [facility] follow up:She will tr linwood Camacho. [facility] follow up:S/P iron in fusions. [facility] follow up :Per Dr. Contreras. Will discuss Amplitude if A1c is > 7%. Her updated medication list for this problem includes: Glimepiride 2 Mg Oral Tablet (Glimepiride) ..... Take one pill a day Jardiance 10 Mg Oral Tablet (Empagliflozin) ..... 1 tab daily Benazepril Hcl 20 Mg Oral Tablet (Benazepril hcl) ..... Take one tab daily Lantus 100 Unit/ml Subcutaneous Solution (Insulin glargine) ..... 30u a day Glucophage 500 Mg Oral Tablet (Metformin hcl) ..... Take 2 pills twice a day Aspirin 81 Mg Oral Tablet (Aspirin) ..... One tab. daily [facility] follow up :Her updated medication list for this problem includes: Repatha 140 Mg/ml Subcutaneous Solution Prefilled Syringe (Evolocumab) ..... Take 1 injection every 2 weeks. [facility] follow up :BP today: 122/80 P rior BP: 140/70 (10/24/2017) Her updated medication list for this problem includes: Benazepril Hcl 20 Mg Oral Tablet (Benazepril hcl) ..... Take one tab daily [facility] follow up :Her updated medication list for this problem includes: Benazepril Hcl 20 Mg Oral Tablet (Benazepril hcl) ..... Take one tab daily Aspirin 81 Mg Oral Tablet (Aspirin) ..... One tab. daily [facility] Follow up:Labs (on Repatha): C HOL: 125 mg/dL (08/26/2017) LDL: 29 (08/26/2017) HDL: 69 mg/dL (08/26/2017) T mg/dL (08/26/2017) Her updated medication list for this problem includes: Repatha 140 Mg/ml Subcutaneous Solution Prefilled Syringe (Evolocumab) ..... Take 1 injection every 2 weeks. [facility] Follow up:BP today: 160/80 P rior BP: 154/65 (04/30/2017) Her updated medication list for this problem includes: Benazepril Hcl 20 Mg Oral Tablet (Benazepril hcl) ..... Take one tab daily [facility] Follow up:Cardiac cath revealed 50% stenosis of the diagonal branch. EF was normal. No chest pain. Her updated medication list for this problem includes: Benazepril Hcl 20 Mg Oral Tablet (Benazepril hcl) ..... Take one tab daily Aspirin 81 Mg Oral Tablet (Aspirin) ..... One tab. daily [facility] Follow up:Orders: T SH, 3RD GENERATION W/REFLEX TO FT4 (10682) Her updated medication list for this problem includes: Levothyroxine Sodium 112 Mcg Oral Tablet (Levothyroxine sodium) ..... One tab. daily [facility] Follow up:Labs Reviewed: H gb: 10.3 (08/12/2017) HCT: 34.5 (08/12/2017) Orders: C BC (INCLUDES DIFF/PLT) (9942) F ERRITIN (457) I EFRAIN AND TOTAL IRON BINDING CAPACITY (7636) [facility] Follow up:Cardiac cath revealed 50% stenosis of the diagonal branch. EF was normal. ProBNP was 129, thus CHF is unlikely. Orders: C BC (INCLUDES DIFF/PLT) (7499) F ERRITIN (457) I EFRAIN AND TOTAL IRON BINDING CAPACITY (7573) [facility] Follow up :Her updated medication list for this problem includes: Repatha 140 Mg/ml Subcutaneous Solution Prefilled Syringe (Evolocumab) ..... Take 1 injection every 2 weeks. [facility] Follow up :The patient is using CPAP on a regular basis. The patient has been benefiting from therapy and should continue use. [facility] Follow up :BP today: 154/65 P rior BP: 157/73 (01/22/2017) Her updated medication list for this problem includes: Benazepril Hcl 20 Mg Oral Tablet (Benazepril hcl) ..... Take one tab daily [facility] Follow up :Pt complains of SOB when she climbs one flight of stairs. No chest pain. Will obtain stress myoview and echo and check proBNP. Her updated medication list for this problem includes: Benazepril Hcl 20 Mg Oral Tablet (Benazepril hcl) ..... Take one tab daily Aspirin 81 Mg Oral Tablet (Aspirin) ..... One tab. daily [facility] Follow up :Pt complains of SOB when she climbs one flight of stairs. No chest pain. Will obtain stress myoview and echo and check proBNP. Ricardo [facility]lin [facility]:Weight loss advised. [facility]:BP today: 157/73 P rior BP: 130/72 (10/28/2016) Her updated medication list for this problem includes: Benazepril Hcl 20 Mg Tabs (Benazepril hcl) ..... Take one tab daily [facility]:Her updat ed medication list for this problem includes: Glimepiride 2 Mg Oral Tabs (Glimepiride) ..... Take one pill a day Jardiance 10 Mg Oral Tabs (Empagliflozin) ..... 1 tab daily Benazepril Hcl 20 Mg Tabs (Benazepril hcl) ..... Take one tab daily Lantus Soln (Insulin glargine soln) ..... 30u a day Glucophage 500 Mg Tabs (Metformin hcl) ..... Take 2 pills twice a day Aspirin 81 Mg Tabs (Aspirin) ..... One tab. daily Orders: M icroalb/Creat Ratio, Dale Ur ([id number]) [facility]:No chest pain or SOB. Her updated medication list for this problem includes: Benazepril Hcl 20 Mg Tabs (Benazepril hcl) ..... Take one tab daily Aspirin 81 Mg Tabs (Aspirin) ..... One tab. daily [facility]:The patie nt is actively using CPAP on a regular basis. She has been benefiting from therapy and should continue use. Ricardo Tomlin [facility]:Her updat ed medication list for this problem includes: Repatha 140 Mg/ml Sc Sosy (Evolocumab) ..... Take 1 injection every 2 weeks. Labs (on Repatha): C HOL: 122.0 (06/11/2016) HDL: 67.0 (06/11/2016) T.0 (06/11/2016) LDL: 35.4 (06/11/2016) Ricardo Tomlin MD [facility]:Weight loss advised. [facility]:Her updat ed medication list for this problem includes: Levothyroxine Sodium 112 Mcg Tabs (Levothyroxine sodium) ..... One tab. daily [facility]:Her updat ed medication list for this problem includes: Glimepiride 2 Mg Oral Tabs (Glimepiride) ..... Take one pill a day Jardiance 10 Mg Oral Tabs (Empagliflozin) ..... 1 tab daily Benazepril Hcl 20 Mg Tabs (Benazepril hcl) ..... Take one tab daily Lantus Soln (Insulin glargine soln) ..... 30u a day Glucophage 500 Mg Tabs (Metformin hcl) ..... Take 2 pills twice a day Aspirin 81 Mg Tabs (Aspirin) ..... One tab. daily [facility]:CHOL: 122 .0 (06/11/2016) HDL: 67.0 (06/11/2016) T.0 (06/11/2016) LDL: 35.4 (06/11/2016) Her updated medication list for this problem includes: Repatha 140 Mg/ml Sc Sosy (Evolocumab) ..... Take 1 injection every 2 weeks. [facility]:BP today: 130/72 P rior BP: 135/64 (05/06/2016) Her updated medication list for this problem includes: Benazepril Hcl 20 Mg Tabs (Benazepril hcl) ..... Take one tab daily [facility]:Now on CPAP/AutoPAP m achine. [facility]:No chest pain or SOB. Her updated medication list for this problem includes: Benazepril Hcl 20 Mg Tabs (Benazepril hcl) ..... Take one tab daily Aspirin 81 Mg Tabs (Aspirin) ..... One tab. daily [facility] Follow up [facility] Follow up :Her updated medication list for this problem includes: Glimepiride 2 Mg Oral Tabs (Glimepiride) ..... Take one pill a day Farxiga 5 Mg Oral Tabs (Dapagliflozin propanediol) ..... Take one pill a day Benazepril Hcl 20 Mg Tabs (Benazepril hcl) ..... Take one tab daily Lantus Soln (Insulin glargine soln) ..... 30u a day Glucophage 500 Mg Tabs (Metformin hcl) ..... Take 2 pills twice a day Aspirin 81 Mg Tabs (Aspirin) ..... One tab. daily [facility] Follow up :BP today: 135/64 P rior BP: 149/68 (09/06/2015) Her updated medication list for this problem includes: Benazepril Hcl 20 Mg Tabs (Benazepril hcl) ..... Take one tab daily Aspirin 81 Mg Tabs (Aspirin) ..... One tab. daily [facility] Follow up :Orders: Marty becker Study Home (CPT-[id number]) [facility] Follow up :Stable. No chest pain or SOB. On ASA. Her last cath was in 2012 (no intervention was done at that time). [facility]:Labs Revi ewed: C reat: 1.13 (08/06/2012) Her updated medication list for this problem includes: Lantus 100 Unit/ml Sc Soln (Insulin glargine) ..... 30 units once daily Benazepril Hcl 20 Mg Tabs (Benazepril hcl) ..... Take one tab daily Lantus Soln (Insulin glargine soln) ..... 30u a day Glucophage 500 Mg Tabs (Metformin hcl) ..... Take 2 pills twice a day Aspirin 81 Mg Tabs (Aspirin) ..... One tab. daily Ricardo [facility]:CHOL: 209 (12/02/2012) LDL: 126 (12/02/2012) HDL: 57 (12/02/2012) T (12/02/2012) Her updated medication list for this problem includes: Repatha 140 Mg/ml Sc Sosy (Evolocumab) ..... Take 1 injection every 2 weeks. Ricardo [facility]lin [facility]:BP today: 149/68 P rior BP: 150/73 (05/03/2015) Her updated medication list for this problem includes: Benazepril Hcl 20 Mg Tabs (Benazepril hcl) ..... Take one tab daily Aspirin 81 Mg Tabs (Aspirin) ..... One tab. daily Ricardo [facility]lin MD Cardiology:Pt had an episode of chest pain. She was seen at [facility] and PR was ruled out. Since then, she has not had any further pains. No further workup is needed. Ricardo Tomlin MD Card[facility]:Pt had an episode of chest pain. She was seen at [facility] and PR was ruled out. Since then, she has not had any further pains. No further workup is needed. Ricardo Tomlin MD [facility]:CHOL: 209 (12/02/2012) LDL: 126 (12/02/2012) HDL: 57 (12/02/2012) T (12/02/2012) Her updated medication list for this problem includes: Praluent 75 Mg/ml Sc Sopn (Alirocumab) ..... Evbery 2 weeks [facility]:BP today: 150/73 P rior BP: 135/70 (11/02/2014) Her updated medication list for this problem includes: Benazepril Hcl 20 Mg Tabs (Benazepril hcl) ..... Take one tab daily Aspirin 81 Mg Tabs (Aspirin) ..... One tab. daily [facility]:The pt juarez d an episode where she was awakened from sleep and felt short of breath for about 2 minutes. There was no chest pain or palpitations. Since then, there has been no SOB. EKG does not show any changes. [facility]:The pt juarez d an episode where she was awakened from sleep and felt short of breath for about 2 minutes. There was no chest pain or palpitations. Since then, there has been no SOB. EKG does not show any changes. [facility]:The pt juarez d an episode where she was awakened from sleep and felt short of breath for about 2 minutes. There was no chest pain or palpitations. Since then, there has been no SOB. EKG does not show any changes. [facility] follow up: T he following medications were removed from the medication list: Hydrochlorothiazide 12.5 Mg Tabs (Hydrochlorothiazide) ..... Take one a day Her updated medication list for this problem includes: Benazepril Hcl 20 Mg Tabs (Benazepril hcl) ..... Take one tab daily Aspirin 81 Mg Tabs (Aspirin) ..... One tab. daily BP today: 144/68 P rior BP: 146/75 (10/14/2012) Labs Reviewed: C reat: 1.13 (08/06/2012) C hol: 209 (12/02/2012) HDL: 57 (12/02/2012) LDL: 126 (12/02/2012) T (12/02/2012) Satish Ghotra MD hospital follow up: T he following medications were removed from the medication list: Hydrochlorothiazide 12.5 Mg Tabs (Hydrochlorothiazide) ..... Take one a day Her updated medication list for this problem includes: Benazepril Hcl 20 Mg Tabs (Benazepril hcl) ..... Take one tab daily Aspirin 81 Mg Tabs (Aspirin) ..... One tab. daily BP today: 144/68 Prior BP: 146/75 (10/14/2012) N uclear Stress Findings: 1. Abnormal myocardial perfusion imaging after vasodilator stress with Regadenoson.\par 2. Abnormal left ventricular systolic function with a calculated ejection fraction of 42%.\par 3. There is a fixed defect involving the inferior wall consistent with scar tissue. - (03/10/2012) C ardiac Cath: 30% in-stent restenosis in the previously placed LAD stent. Normal left circumflex. 20% stenosis in the proximal RCA. Normal LV systolic function with an ejection fraction of 60%. - [facility] (01/26/2013) C ardiac Cath Comments: Successful stenting of the mid LAD with a 2.5 X 8 mm Vision stent. - (03/24/2012) C K: 116 (05/06/2012) BUN: 13 (05/06/2012) Creat: 1.13 (08/06/2012) Glucose: 144 (05/06/2012) N a+: 140 (08/06/2012) K+: 4.4 (08/06/2012) Cl: 101 (05/06/2012) SGOT (AST): 27 (08/06/2012) SGPT (ALT): 22 (08/06/2012) TSH: 1.09 (08/06/2012) Satish Ghotra MD hospital follow up: H er updated medication list for this problem includes: Benazepril Hcl 20 Mg Tabs (Benazepril hcl) ..... Take one tab daily Aspirin 81 Mg Tabs (Aspirin) ..... One tab. daily Effient 10 Mg Tabs (Prasugrel hcl) ..... One tablet daily BP today: 144/68 Prior BP: 146/75 (10/14/2012) N uclear Stress Findings: 1. Abnormal myocardial perfusion imaging after vasodilator stress with Regadenoson.\par 2. Abnormal left ventricular systolic function with a calculated ejection fraction of 42%.\par 3. There is a fixed defect involving the inferior wall consistent with scar tissue. - (03/10/2012) C ardiac Cath: 30% in-stent restenosis in the previously placed LAD stent. Normal left circumflex. 20% stenosis in the proximal RCA. Normal LV systolic function with an ejection fraction of 60%. - [facility] (01/26/2013) C ardiac Cath Comments: Successful stenting of the mid LAD with a 2.5 X 8 mm Vision stent. - (03/24/2012) C arotid Doppler/Duplex: Normal carotid duplex examination. Vertebral flow is antegrade bilaterally. - [facility] (03/26/2012) C K: 116 (05/06/2012) CHOL: 209 (12/02/2012) LDL: 126 (12/02/2012) HDL: 57 (12/02/2012) T (12/02/2012) B UN: 13 (05/06/2012) Creat: 1.13 (08/06/2012) Glucose: 144 (05/06/2012) N a+: 140 (08/06/2012) K+: 4.4 (08/06/2012) Cl: 101 (05/06/2012) PT: 10.4 (03/16/2012) INR: 1.0 (03/16/2012) T SH: 1.09 (08/06/2012) Satish Ghotra MD Date Name Complete Echo Sleep Study Home RPM (remote patient monitoring) PROTHROMBIN TIME WIT H INR LIPID PANEL CBC (INCLUDES DIFF/P LT) BASIC METABOLIC PANE L W/EGFR Cardiac Cath - Left - [facility] Stress Regadenoson Complete Echo IRON AND TOTAL IRON BINDING CAPACITY FERRITIN CBC (INCLUDES DIFF/P LT) TSH, 3RD GENERATION W/REFLEX TO FT4 IRON AND TOTAL IRON BINDING CAPACITY FERRITIN CBC (INCLUDES DIFF/P LT) PROTHROMBIN TIME WIT H INR CBC (INCLUDES DIFF/P LT) BASIC METABOLIC PANE L W/EGFR TSH, 3RD GENERATION W/REFLEX TO FT4 PROBNP, N TERMINAL PROBNP, N TERMINAL PROBNP, N TERMINAL STR - Nuclear Complete Echo Microalb/Creat Ratio , Randm Ur LIPID PANEL LIPID PANEL Sleep Study Home STR - Nuclear Arterial Duplex Bi-L ower EX LIPID PANEL HEPATIC FUNCTION DUEÑAS EL Cardiac Cath - Left - [facility] Complete Echo HISTORY OF PROCEDURES Procedure Date Procedure Name Provider Procedure Notes S tatus EKG Ricardo Tomlin MD completed EKG Ricardo Tomlin MD completed EKG Ricardo Tomlin MD completed EKG Ricardo Tomlin MD completed Regadenoson, 4 units Ricardo Tomlin MD completed Cardiolite, 2 units Ricardo Tomlin MD c ompleted SPECT Images Ricardo Tomlin MD complete d Stress EKG Ricardo Tomlin MD completed EKG Ricardo Tomlin MD completed Injectafer 750mg Ricardo Tomlin MD comp leted Therapeutic IV Infus ion up to 1 hour Ricardo Tomlin MD completed Injectafer 750mg Ricardo Tomlin MD comp leted Therapeutic IV Infus ion up to 1 hour Ricardo Tomlin MD completed Cardiolite, 2 units Ricardo Tomlin MD c ompleted SPECT Images Angie Zimmerman MD completed Stress EKG Marciano Lagunas MD completed ROMAN Rosado MD c ompleted SNOMED-CT: [id number] Physical Exam, Performed: Pulse Exam of Foot Ricardo Tomlin MD completed EKG Ricardo Tomlin MD completed SNOMED-CT: [id number] Current Medications Documented Ricardo Tomlin MD completed SNOMED-CT: [id number] Physical Exam, Performed: Pulse Exam of Foot Ricardo Tomlin MD completed SNOMED-CT: [id number] Current Medications Documented Ricardo Tomlin MD completed SNOMED-CT: [id number] Physical Exam, Performed: Pulse Exam of Foot Ricardo Tolmin MD completed SNOMED-CT: [id number] Current Medications Documented Ricardo Tomlin MD completed SNOMED-CT: [id number] Physical Exam, Performed: Pulse Exam of Foot Ricardo Tomlin MD completed EKG Ricardo Tomlin MD completed SNOMED-CT: [id number] Current Medications Documented Ricardo Tomlin MD completed SNOMED-CT: [id number] Physical Exam, Performed: Pulse Exam of Foot Ricardo Tomlin MD completed SNOMED-CT: [id number] Current Medications Documented Ricardo Tomlin MD completed EKG Ricardo Tomlin MD completed SNOMED-CT: [id number] Physical Exam, Performed: Pulse Exam of Foot Ricardo Tomlin MD completed SNOMED-CT: [id number] [id number] Current Medications Documented Ricardo Tomlin MD completed
--- OUTSIDE RECORDS SUMMARY | 2024-07-26 10:43 | XMS_ITS | Referral Summary ---
Author Organization [address] [facility] Address [address] [place] [address] Care Team Providers Care Frozen Foods Manager Name Role Phone Kaveh Leonie PUTTY MAKER Primary Care Provider [phone] Antonia Contreras MD Unavailable Priscila Carey NP Unavailable Encounters Date Type Department Care Team Description 07/19/2024 Telephone [facility] [address] [phone] Antonia Contreras MD from Last 3 Months Allergies Active Allergy Reactions Criticality Noted Date Comments Exenatide Nausea only Low Exenatide Microspheres Nausea only Low 12/10/2016 Cxxctzc-Smk-Vws Reductase Inhibitors Nausea only Low 12/10/2016 Other reaction(s): Myalgias (Muscle Pain) Medications coenzyme Q10 (CO Q-10) 200 mg capsule take one by oral route one time every day 0 08/07/19 13 Active ketoconazole (NIZORAL) 2 % cream apply by topical route every day to the affected area(s) 0 0 03/10/20 13 Active aspirin 81 mg tablet Take according to nace-zeq-xtlkesp package directions 0 0 07/20/19 08 Active Ca carb-D3-mag ds-hdd-qson-Zn (CALTRATE + D3 PLUS MINERALS) 300 mg-800 [...] hyperglycemia, with long-term current use of insulin ([facility]) USE WITH METER TO TEST TWO TIMES DAILY 200 each 3 08/27/19 23 Active lancets (OpenSkyuch Delica Plus Lancet) 30 gauge miscIndications: Type 2 diabetes mellitus with hyperglycemia, with long-term current use of insulin ([facility]) Check CBG BID 200 each 3 08/27/19 23 Active Praluent Pen 150 mg/mL pen injector INJECT 1 PEN UNDER THE SKIN ONCE EVERY 2 WEEKS 02/11/20 23 Active benzonatate (TESSALON) 100 mg capsule Active influenza quadrivalent 6712-5039 (Fluad Quad 2020-21,65y up,,PF,) 60 mcg (15 mcg x 4)/0.5 mL syringe Active coenzyme X49-asfvjcd E (Co Q-10, with Vit E,) 100-5 [...] long-term current use of insulin (HCC) TAKE 2 TABLETS TWICE A DAY 360 tablet 3 07/20/19 25 Active levothyroxine (SYNTHROID) 100 mcg tabletIndication s:Type 2 diabetes mellitus with hyperglycemia, with long-term current use of insulin (HCC) TAKE 1 TABLET EARLY MORNINGBEFORE BREAKFAST 90 tablet 3 07/20/19 25 Active levothyroxine (SYNTHROID) 100 mcg tablet Take 1 tablet (100 mcg total) 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 Last lipid panel: 07/24/21 LDL=14, YA=960. Will update lipid panel today. Verified that she uses [employer]. Aware to check results/results letter in [employer]. Will contact by phone if needed. Assessment & Plan (08/06/2022 1:41 PM CDT): Diet and exercise Very well controlled Continue Repatha Assessment & Plan (01/10/2022 10:04 AM CDT): Chronic problem. On PCSK9i therapy (intolerant of statins), no changes. Assessment & Plan (07/24/2021 1:47 PM SPEECH AND LANGUAGE CLINICIAN): Chronic, well controlled Continue current meds Check [...] Repatha Assessment & Plan (06/06/2020 1:33 PM SPEECH AND LANGUAGE CLINICIAN): Goal of treatment , LDL cholesterol less [...] panel Assessment & Plan (05/05/2018 2:45 PM SPEECH AND LANGUAGE CLINICIAN): Per cardiology Assessment & Plan (01/13/2018 1:49 [...] 08/26/2017 Assessment & Plan (05/05/2018 2:44 PM SPEECH AND LANGUAGE CLINICIAN): Importance of following diet and exercising discussed. [...] update labs today. Verified that she uses [employer]. Aware to check results/results letter in [employer]. Will contact by phone if needed. Had DM eye exam earlier this year at [facility] in [place]; letter sent to get copy of [...] changes. Assessment & Plan (07/24/2021 1:48 PM SPEECH AND LANGUAGE CLINICIAN): Hba1c was Lab Results Component Value Date [...] regimen Assessment & Plan (06/06/2020 1:32 PM SPEECH AND LANGUAGE CLINICIAN): Hba1c was Lab Results Component Value Date [...] Follow up in July once back from [place]. 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 Assessment & Plan (05/05/2018 2:48 PM SPEECH AND LANGUAGE CLINICIAN): A1c 7.3. Continue with same medication. 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 Assessment & Plan (04/22/2017 11:45 AM SPEECH AND LANGUAGE CLINICIAN): Hba1c was 7.8 today, indicating suboptimal DM [...] update TFTs today. Verified that she uses [employer]. Aware to check results/results letter in [employer]. Will contact by phone if needed. Assessment & Plan (08/06/2022 1:42 PM CDT): Chronic, well controlled Continue Levothyroxine Assessment & Plan (02/18/2019 10:39 AM CDT): Clinically and biochemically euthyroid. Continue current dose LT4 replacement. Assessment & Plan (07/30/2018 10:04 AM CDT): Continue on current dose of thyroid replacement hormone. Assessment & Plan (05/05/2018 2:45 PM SPEECH AND LANGUAGE CLINICIAN): Will check TFTs Assessment & Plan (12/10/2016 [...] Will update labs. Verified that she uses [employer]. Aware to check results/results letter in [employer]. Will contact by phone if needed. Assessment & Plan (08/06/2022 1:41 PM CDT): Chronic, well controlled Importance of low salt diet and exercise were discussed Continue current meds, including Benazepril Assessment & Plan (01/10/2022 10:03 AM CDT): Controlled on current medications, no changes. Assessment & Plan (07/24/2021 1:47 PM SPEECH AND LANGUAGE CLINICIAN): Chronic, well controlled Continue current meds Assessment & Plan (11/21/2020 1:37 PM CDT): Goal blood pressure is less than 140/85 Low salt diet was discussed andd recommended The importance of daily aerobic exercise was also emphasized. Continue current meds, including RAFA-I or ARB, e.g. Benazepril Check microalbumin Assessment & Plan (06/06/2020 1:33 PM SPEECH AND LANGUAGE CLINICIAN): Goal blood pressure is less than 140/85 [...] medications. Assessment & Plan (05/05/2018 2:45 PM SPEECH AND LANGUAGE CLINICIAN): Controlled on current medications. Assessment & Plan [...] ARB Assessment & Plan (04/22/2017 11:46 AM SPEECH AND LANGUAGE CLINICIAN): Goal blood pressure is less than 140/85 [...] NEC/NOS Assessment & Plan (04/22/2017 11:46 AM SPEECH AND LANGUAGE CLINICIAN): Goal of treatment , LDL cholesterol less [...] Continue Repatha Low cholesterol diet, exercise advised. Immunizations Immunization Administration Dates Next Due COVID-19 mRNA (Prêt d'Union) 0.3 m L (30 mcg) vaccine (12 years and up) 02/03/2023 Pfizer SARS-CoV-2 Monovalent Vaccination (12+ Yrs) PURPLE 02/20/2021,08/09/2020,07/18/2020 Social History Tobacco Use Types Packs/Day Years [...] on file Legal Sex Female 11:44 AM SPEECH AND LANGUAGE CLINICIAN Gender Identity Female 06/05/2020 5:19 PM SPEECH AND LANGUAGE CLINICIAN Sexual Orientation Straight 06/05/2020 5: 19 PM SPEECH AND LANGUAGE CLINICIAN Last Filed Vital Signs Vital Sign Reading [...] 02/26/2024 2:10 PM CDT Plan of Treatment Not on file Procedures Procedure Name Priority Date/Time Associated Diagnosis [...] with long-term current use of insulin (HCC) DIABETES EYE EXAM Routine 10/14/2023 10:50 AM CDT from Last 3 Months or Most Recently Relevant to Health Maintenance Results * eGFR (02/26/2024 2:59 PM CDT) [facility] Signature eGFR 65 >=60 mL/min/1. 73 m2 Comment: [...] ORDERABLES Final Resul t Performing Organization Address [facility] de Phone Number JOHN [phone] [address] [facility] [place] [address] * Albumin Creatinine Ratio, Urine (02/26/2024 2:59 [...] ORDERABLES Final Resul t Performing Organization Address [facility] de Phone Number JOHN [phone] [address] [facility] [place] [address] * Lipid panel (02/26/2024 2:59 PM CDT) [...] 2. NCEP Expert Panel. Circulation 2004;110:227 3. Mike Padilla. NICKY Cardiol. 2020 September 16;5(5):540-548. doi: 10.1001/jamacardio.2020.0013 [...] PM CDT 02/26/2024 7:01 PM CDT Antonia Contreras MD LAB BLOOD ORDERABLES Final Resul t [facility] Organization Address City/State/ZIP Co de Phone Number JOHN [phone] [place] [address] * POCT hemoglobin A1c (02/26/2024 2:13 PM CDT) Hemoglobin A1C, POC 5.9 4.0 - 5.6 % Comment:None Capillary blood 02/26/2024 2 :13 PM CDT us Antonia Contreras MD POINT OF CARE TEST ORDERABLES Fi nal Result * DIABETES EYE EXAM (10/14/2023 10:50 AM CDT) Sandra Lang MD HEALTH MAINTENANCE Edited Result - Final from Last 3 Months or Most Recently Relevant to Health Maintenance Insurance [employer] MEDICARE [facility] MEDICARE Care Teams Frozen Foods Manager Relationship Specialty Start Date End Date Floresita Leon NP PCP - General 08/16/16 [place] [phone] [address] Consulting Physician Endocrinology Diabetes & Metabolism 11/12/18 [place] [id number] [address] Nurse Practitioner Internal Medicine 11/12/18
--- OUTSIDE RECORDS SUMMARY | 2024-07-26 10:43 | XMS_ITS | Data Portability ---
Author Organization [place] - [facility], Main Office Address [address] [place] [address] Care Team Providers Care Sustainability Executive Director Name Role Phone KIRA LAROSE Primary Care Provider HOMAKIRA MCBRIDE Referring Provider Assessment Encounter Date Assessment Date Assessment LastModified by Organization Details LastModified Time 10/09/2023 10/09/2023 This note is dictated and transcribed by [employer]. [employer] variances may occur. Despite proofreading, typographical errors may occur. Occasional wrong-word or 'ajsvq-[id number]' substitutions may have occurred due to the inherent limitations of voice recording. Read the chart carefully and recognize, using context, where substitutions have occurred. Not available 10/09/2023 12:37:07 12/29/2023 12/29/2023 This note is dictated and transcribed by [employer]. [employer] variances may occur. Despite proofreading, typographical errors may occur. Occasional wrong-word or '[id number]' substitutions may have occurred due to the inherent limitations of voice recording. Read the chart carefully and recognize, using context, where substitutions have occurred. Not available 12/29/2023 15:16:48 05/27/2024 05/27/2024 This note is dictated and transcribed by [employer]. [employer] variances may occur. Despite proofreading, typographical errors may occur. Occasional wrong-word or 'jkygb-d-[id number]' substitutions may have occurred due to the inherent limitations of voice recording. Read the chart carefully and recognize, using context, where substitutions have occurred. Not available 05/27/2024 14:27:17 Plan of Treatment Reminders Order Date Submit Date Provider Last Modified By Organization Details Last Modified Time Details Appointments Establish ed Patient 15 2024 01:15P Jeremías Hummel DPM Not available Not available Not available Lab None recorded. Referral None recorded. Procedures None recorded. Surgeries None recorded. Imaging DEXA - *Please call pt to schedule* 2023 [facility], [address], [address], [address], 06/18/2024 10:36:01 Medication Orders ketoconaz ole 2 % topical cream 2023 [facility] #[id number], [address], [place], [place], [id number], 10/09/2023 12:37:44 Nyamyc 100,000 unit/gram topical powder 2023 [facility] #[id number], [address], [place], [place], [id number], 10/02/2023 10:16:35 oxybutyni n chloride ER 5 mg tablet,ex tended release 24 hr 2023 [facility], [facility], [place], [address], 10/02/2023 10:14:27 ketoconaz ole 2 % topical cream 2023 024 [facility] #[id number], [address], [place], [place], [id number], 10/02/2023 10:16:35 ketoconaz ole 2 % topical cream 2023 024 [facility] #[id number], [address], [place], [place], [id number], 06/12/2023 12:46:58 Patient TargetsNo targets recorded. Patient Instructions Encounter Date Encounter Id Patient Instructions Last Modified By Organization Details Last Modified Time 06/12/2023 [id number] diabetic foot care education Not available 06/12/2023 13:29:40 diabetic neuropathy: care instructions [email or web address] Not available 06/12/2023 13:29:40 10/09/2023 [id number] diabetes foot health: care instructions Not available 10/09/2023 12:37:37 Reason for Referral None Reported. Results Created Date Observation Date Name Description Value Unit Range Abnormal Flag Note LastModifiedBy Organization Detail LastModifiedTime 11/24/1911/24/2023 US, doppl er echoc ardio gram No observ ation record ed. [email or web address] [facility] [address], [place], [address], 12/11/2023 09:55:45 03/22/20 24 03/18/2024 DEXA No observ ation record ed. [address] [facility] [address], [place], [address], 06/18/2024 10:36:01 03/22/2003/18/2024 MAMMO , scree shun, digit al, bilat eral No observ ation record ed. [address] [facility], [place], [address], 06/18/2024 10:36:13 Result Notes None recorded. Problems Name Problem SNOMED Code Status Onset Date Resolution Date Notes Provider Name and Address Organization Details Recorded Time Incontine nce of feces 80213098 Active 2022 Richelle Lee MD [address], [address], [place], [address] , [employer] 3 11:44:35 Gastroeso phageal reflux disease 433944629 Active 2022 Richelle Lee MD [address], [address], [place], [address] , [employer] [facility] 3 11:48:28 Gastroeso phageal reflux disease without esophagit is 935790209 Active 2022 Richelle Lee MD [address] [facility], [facility] [address], [place], [address] , [facility] 3 12:18:12 Celluliti s of foot 867420986 Active 2022 Richelle Lee MD [address] [facility], [address] [address], [place], [address] , [facility] 3 16:02:09 Lumbar DXA scan result osteopeni c 416891794 Active 2022 Richelle Lee MD [address] [facility], [address] [address], [place], [address] , [facility] 3 14:12:52 Vaginitis 32943051 Active 2022 Richelle Lee MD [address] [facility], [address] [address], [place], [address] , [facility] 3 14:23:38 Malignant tumor of parathyro id gland 835393758 Active 2023 Jennifer sidhu, [place] - [facility] 4 12:04:24 Ear problem 165918224 Active 2023 Jennifer sidhu, [facility] - [facility] 4 12:04:59 Heartburn 92556579 Active 2023 Jennifer sidhu, [facility] - [facility] 4 12:05:11 Obesity 709427965 Active 2023 Jennifer sidhu, [place] - [facility] 4 12:05:34 Disorder of thyroid gland 43023781 Active 2023 Jennifer sidhu, [place] - [facility] 4 12:05:59 Onychomyc osis of toenails 387260494 Active 2023 Alex Hummel DPM [address] [facility], [facility] [address], [place], [address] , [facility] 4 12:46:27 Overactiv e urinary bladder 232151249 Active 2023 Richelle Lee MD [address] [address], [place], [address] , [facility] 4 10:14:05 Pain in left thumb 91553556442 98779 Active 2023 Richelle Lee MD [address] [address], [place], [address] , [facility] [employer] [facility] [employer] [facility] 4 09:51:47 Dystrophi a unguium 65649304 Active 2024 Alex Hummel DPM [address] [facility], [address] [address], [place], [address] , [facility] [employer] [facility] 5 14:27:06 Gastric reflux 532936700 Active Not Available [facility] 3 04:51:32 Chest pain 06879292 Completed Not Available [facility] 3 04:51:32 Osteopeni a 988072433 Active 2018 Not Available [facility] 3 04:51:32 Type 2 diabetes mellitus without complicat ion 964425931 Completed Not Available [facility] 3 04:51:32 Pain of toe of right foot 68268653613 9101 Active 2018 Not Available [facility] 3 04:51:32 Disorder of vitamin B12 091191797 Active 2020 Not Available [facility] 3 04:51:32 Paronychi a of toe 072466229 Active 2018 Not Available [facility] 3 04:51:32 Generaliz ed atheroscl erosis 92558864 Active Not Available [facility] 3 04:51:32 Rosacea 218639039 Active Not Available [facility] 3 04:51:33 Porokerat osis 862088143 Active 2018 Not Available [facility] 3 04:51:33 Hypothyro idism 24171676 Active Not Available [employer] 3 04:51:33 Wound 326520342 Completed Not Available [facility] 3 04:51:33 Nausea 948061390 Completed Not Available [facility] 3 04:51:33 Type 2 diabetes mellitus 95097349 Active Not Available [facility] 3 04:51:33 Hip pain 64571187 Completed Not Available [facility] 3 04:51:33 Cough 20243232 Completed Not Available [facility] 3 04:51:33 Candidias is of skin 31151001 Completed Not Available [facility] 3 04:51:33 Coronary arteriosc lerosis 40422907 Active Not Available [facility] 3 04:51:33 Hyperlipi demia 99316091 Active Not Available [facility] 3 04:51:34 Essential hypertens ion 98948000 Active Not Available [facility] 3 04:51:34 Diabetes mellitus 66288428 Active Not Available [facility] 3 04:51:34 Candidias is 66348772 Completed Not Available [facility] 3 04:51:34 Urge incontine nce of urine 84630776 Active Not Available [facility] 3 04:51:34 Notes:female problems/infect ions, urinary/bladder/kidney problems, use of nsaids Problem Notes None recorded. Procedures Surgical History Date Name Laterality Status Provider Name and Address Organization Details Recorded Time 025 Nail Debridement completed Alex Hummel DPM [address], [address], [place], [address], [employer] 05/27/2024 14:26:59 024 Nail Debridement completed Alex Hummel DPM [address], [address], [place], [address], [employer] 12/29/2023 15:16:44 024 Nail Debridement completed Alex Hummel DPM [address], [address], [place], [address], [employer] 10/09/2023 13:20:08 024 Nail Debridement completed Alex Hummel DPM [address], [address], [place], [address], [facility] [employer] [facility] [place] [employer] [facility] [employer] 06/12/2023 13:18:01 023 colonoscopy completed Richelle Lee MD [address], [address], [place], [address], [email or web address] [facility] [employer] [facility] [employer] 09/26/2023 18:11:36 023 Medicare Wellness CPT Code, subsequent completed Richelle Lee MD [address], [address], [place], [address], [email or web address] [facility] [employer] [facility] [employer] 04/02/2023 14:06:11 parathyroidectomy completed Richelle Lee MD [address], [address], [place], [address], [email or web address] [facility] [employer] 07/24/2022 11:31:00 hysterectomy completed Richelle Lee MD [address], [address], [place], [address], [email or web address] [facility] [employer] [facility] [employer] 07/24/2022 11:31:07 tonsillectomy completed Richelle Lee MD [address], [address], [place], [address], [email or web address] [facility] [employer] 07/24/2022 11:31:13 mohs surgery completed Richelle Lee MD [address], [address], [place], [address], [employer] [facility] [employer] 07/24/2022 11:31:22 Cardiac Stent Placement completed Richelle Lee MD [address], [address], [place], [address], [email or web address] [facility] [employer] 07/24/2022 11:31:31 cholecystectomy completed Richelle Lee MD [address], [place], [address], [facility] [employer] [facility] [employer] [facility] 07/24/2022 11:31:37 Knee Surgery completed Richelle Lee MD [address], [place], [address], [facility] [employer] [facility] 07/24/2022 11:31:57 extraction of cataract completed Richelle Lee MD [address], [place], [address], [facility] [employer] [facility] 07/24/2022 11:32:09 Imaging Results Imaging Date Name Status LastModified by Organization Details LastModified Time 11/24/2023 US, doppler echocardiogram completed [facility] [address] , [place], [address], 12/11/2023 09:55:45 03/18/2024 DEXA completed [address], [place], [address], 06/18/2024 10:36:01 03/18/2024 MAMMO, screening, digital, bilateral completed [address], [place], [address], 06/18/2024 10:36:13 Procedure Notes None recorded. Medical Equipment None Reported. Allergies Allergen ID Allergen Name Allergen Category Reaction Reaction Severity Criticality Documentation Date Start Date Code Code System Note Provider Name and Address Organization Details Recorded Time 7975 Product containin g 3-hydroxy -3-methyl glutaryl- coenzyme A reductase inhibitor (product) medicatio n myalgias (muscle pain) Not available Not available 07/17/2022 15385 009 SNOMED Not Available [facility] 3 05:03:19 7976 Byetta medicatio n nausea Not available Not available 07/17/2022 26958 1 RxNorm Not Available [facility] 05:03:19 7977 Bydureon medicatio n nausea Not available Not available 07/17/2022 93752 64 RxNorm Not Available [facility] 05:03:19 Medications Name Sig Start Date Stop Date Status Note LastModified by Organization Details LastModified Time cyclobenz aprine 10 mg tablet TAKE 1/2 TO 1 TABLET BY MOUTH TWICE DAILY 10/08 completed Not Available Not Available Not Available neomycin- polymyxin -hydrocor t 3.5 mg/mL-10, 000 unit/mL-1 % ear solution 03/18 completed Not Available Not Available Not Available doxycycli ne hyclate 100 mg capsule TAKE 1 CAPSULE BY MOUTH TWICE DAILY WITH MEALS 06/12 completed Not Available Not Available Not Available clindamyc in HCl 300 mg capsule Take 1 capsule every 6 hours by oral route with meals for 14 days. 10/20 completed Not Available Not Available Not Available ammonium lactate 12 % lotion EVE TO FEET ONCE D 04/05 completed Not Available Not Available Not Available azithromy brenda 250 mg tablet TAKE 2 TABLETS (500 MG) BY ORAL ROUTE ONCE DAILY FOR 1 DAY THEN 1 TABLET (250 MG) BY ORAL ROUTE ONCE DAILY FOR 4 DAYS 10/26 completed Not Available Not Available Not Available nitroglyc jayshree 0.3 mg sublingua l tablet active Not Available Not Available Not Available ibuprofen 800 mg tablet TAKE 1 TABLET BY MOUTH EVERY 6 TO 8 HOURS NEEDED. 10 DAY SUPPLY 10/08 completed Not Available Not Available Not Available ofloxacin 0.3 % eye drops 04/04 completed Not Available Not Available Not Available fluconazo le 150 mg tablet TAKE 1 TABLET BY MOUTH EVERY DAY FOR 3 DAYS 06/12 completed Not Available Not Available Not Available ondansetr on HCl 8 mg tablet TAKE ONE TABLET BY MOUTH EVERY 8 HOURS NEEDED FOR 10 DAYS 07/16 completed Not Available Not Available Not Available fluconazo le 200 mg tablet Take 1 tablet(s ) EVERY DAY by oral route FOR 7 DAYS THEN ONE A WEEK. 07/16 completed Not Available Not Available Not Available FreeStyle Lancets 28 gauge Take 1 each twice a day by miscell. route for 100 days. 12/29 completed Not Available Not Available Not Available Noritate 1 % topical cream Apply 1 g every day by topical route for 90 days. active Not Available Not Available No t Available sulfameth oxazole 800 mg-trimet hoprim 160 mg tablet TAKE 1 TABLET BY MOUTH EVERY 12 HOURS FOR 7 DAYS 04/02 completed Not Available Not Available Not Available peg-elect rolyte solution 420 gram oral solution 09/04 completed Not Available Not Available Not Available omeprazol e 40 mg capsule,d elayed release TAKE 1 CAPSULE BY MOUTH EVERY DAY 09/30 completed Not Available Not Available Not Available aspirin 81 mg tablet,de layed release Take 1 tablet every day by oral route. 2017 active Not Available Not Available Not Avai lable tramadol 50 mg tablet 09/15 completed Not Available Not Available Not Available simvastat in 40 mg tablet active Not Available Not Available Not Available glimepiri de 2 mg tablet Take 1 tablet every day by oral route for 30 days. 09/15 completed Not Available Not Available Not Available ketorolac 0.5 % eye drops 04/04 completed Not Available Not Available Not Available levothyro xine 100 mcg tablet TAKE 1 TABLET BY MOUTH DAILY active Not Available Not Available No t Available hydrocort isone 2.5 % topical cream with perineal applicato r APPLY THIN LAYER TOPICALL Y TO THE AFFECTED AREA 2 TO 4 TIMES DAILY NEEDED 06/12 completed Not Available Not Available Not Available amoxicill in 875 mg tablet active Not Available Not Available Not Available prednisol one acetate 1 % eye drops,daron pension 07/24 completed Not Available Not Available Not Available OneTouch Ultra Test strips Take 1 strip every day by miscell. route for 90 days. active Not Available Not Available No t Available imiquimod 5 % topical cream packet active Not Available Not Available Not Available benzonata te 100 mg capsule Take 1 capsule twice a day by oral route. active Not Available Not Available No t Available cephalexi n 500 mg capsule Take 1 capsule twice a day by oral route with meals for 5 days. 03/18 completed Not Available Not Available Not Available cyanocoba mignon (vit B-12) 1,000 mcg/mL injection solution Inject 1 mL every week by subcutan eous route for 1 day. 11/07 completed Not Available Not Available Not Available tacrolimu s 0.1 % topical ointment APPLY TOPICALL Y TO RASH AREAS ON GROIN TWICE DAILY FOR FLARES THEN USE TWO TIMES A WEEK FOR MAINTENA NCE active Not Available Not Available No t Available levothyro xine 125 mcg tablet TAKE 1 TABLET BY MOUTH EVERY DAY 03/22 completed Not Available Not Available Not Available clotrimaz ole-betam ethasone 1 %-0.05 % topical cream EVE EXT TO THE AFFECTED AND SURROUND ING AREAS OF SKIN BID IN THE MORNING AND IN THE ELLIOT FOR 2 WKS active Not Available Not Available No t Available metoprolo l tartrate 50 mg tablet TAKE 1 TABLET BY MOUTH TWICE DAILY active Not Available Not Available No t Available nitroglyc jayshree 0.4 mg sublingua l tablet ONE TABLET UNDER TONGUE NEEDED FOR CHEST PAIN. MAY REPEAT EVERY 5 MINUTES IF STILL HAVING CHEST PAIN. MAX 3 TABS PER EPISODE 06/12 completed Not Available Not Available Not Available oxybutyni n chloride ER 5 mg tablet,ex tended release 24 hr 1 po qday active Not Available Not Available No t Available omeprazol e 20 mg capsule,d elayed release Take 1 capsule every day by oral route. 09/30 completed Not Available Not Available Not Available benazepri l 20 mg tablet TAKE 1 TABLET ONCE DAILY active Not Available Not Available No t Available ammonium lactate 12 % topical cream 10/03 completed Not Available Not Available Not Available pravastat in 20 mg tablet active Not Available Not Available Not Available benazepri l 40 mg tablet active Not Available Not Available Not Available ketoconaz ole 2 % topical cream APPLY TO AFFECTED TOENAILS DAILY active Not Available Not Available No t Available metformin ER 500 mg tablet,ex tended release 24 hr TAKE 2 TABLETS TWICE A DAY active Not Available Not Available No t Available doxycycli ne hyclate 100 mg tablet TAKE 1 TABLET BY MOUTH TWICE DAILY 10/03 completed Not Available Not Available Not Available levothyro xine 112 mcg tablet Take 1 tablet every day by oral route for 30 days. 10/16 completed Not Available Not Available Not Available neomycin 3.5 mg/g-poly myxin B 10,000 unit/g-de xameth 0.1 % eye oint APPLY SMALL AMOUNT TO THE EYELID TWICE DAILY 10/01 completed Not Available Not Available Not Available metoprolo l tartrate 25 mg tablet TAKE 1 TABLET BY MOUTH TWICE DAILY 04/04 completed Not Available Not Available Not Available BD Ultra-Fin e Mini Pen Needle 31 gauge x 3/16 Take by miscell. route for 90 days. 03/27 completed Not Available Not Available Not Available Vesicare 5 mg tablet TAKE 1 TABLET BY MOUTH EVERY DAY 09/20 completed Not Available Not Available Not Available Enablex 15 mg tablet,ex tended release Take 1 tablet every day by oral route for 90 days. active Not Available Not Available No t Available Boostrix Tdap 2.5 Lf unit-8 mcg-5 Lf/0.5 mL intramusc ular syringe 09/20 completed Not Available Not Available Not Available metronida zole 1 % topical gel EVE EXT AA Q DAY. RUB IN GENTLY AND COMPLETE LY 10/03 completed Not Available Not Available Not Available Prilosec 10/02 completed Not Available Not Available Not Available CoQ10 2017 active Not Available Not Available Not Avai lable hydrochlo rothiazid e 12.5 mg tablet active Not Available Not Available Not Available Lantus Solostar U-100 Insulin 100 unit/mL (3 mL) subcutane ous pen Inject 30 units every day by sub-q route for 90 days. 11/29 completed 15 units every morning Not Available Not Available Not Available coQ10 (liposoma l ubiquinol ) 200mg 1 daily 10/03 completed Not Available Not Available Not Available diclofena c 1 % topical gel APPLY 4GM TO KNEES TWICE A DAY NEEDED 09/15 completed Not Available Not Available Not Available Effient 10 mg tablet Take 1 tablet every day by oral route for 90 days. active Not Available Not Available No t Available B12 active Not Available Not Availa ble Not Available OneTouch Delica Lancets 33 gauge active Not Available Not Available Not Available Caltrate 600 plus D 2017 active Not Available Not Available Not Ginny trotter [facility] Health 1.5 billion cell capsule Take 1 capsule every day by oral route in the morning for 30 days. 11/05 completed Not Available Not Available Not Available Bydureon 2 mg subcutane ous extended release suspensio n active Not Available Not Available Not Available Invokana 100 mg tablet Take 1 tablet every day by oral route for 30 days. active Not Available Not Available No t Available Invokana 300 mg tablet Take 1 tablet every day by oral route for 90 days. 01/26 completed Not Available Not Available Not Available Vytone 1.9 %-1 % topical cream packet Apply 1 applicat ion 3 times a day by topical route. active Not Available Not Available No t Available Pennsaid 20 mg/gram/a ctuation (2 %) topical soln in metered-d ose pump APPLY 2 PUMPS (40 MG) TO THE AFFECTED KNEE(S) BY TOPICAL ROUTE 2 TIMES PER DAY 10/16 completed too expensiv e Not Available Not Available Not Available Farxiga 5 mg tablet Take 1 tablet every day by oral route for 30 days. 09/15 completed Not Available Not Available Not Available Jardiance 10 mg tablet TK 1 T PO QD IN THE MORNING 04/02 completed Not Available Not Available Not Available Jardiance 25 mg tablet 04/02 completed Not Available Not Available Not Available Praluent Pen 150 mg/mL subcutane ous pen injector INJECT 1 PEN UNDER THE SKIN ONCE EVERY 2 WEEKS active Not Available Not Available No t Available evolocuma b 140 mg/mL subcutane ous syringe Inject 1 mL every 2 weeks by subcutan eous route. 03/18 completed Not Available Not Available Not Available Repatha SureClick 140 mg/mL subcutane ous pen injector INJECT 1 PEN Q 2 WEEKS 09/05 completed Not Available Not Available Not Available Shingrix (PF) 50 mcg/0.5 mL intramusc ular suspensio n, kit 10/03 completed Not Available Not Available Not Available Ozempic 0.25 mg or 0.5 mg (2 mg/1.5 mL) subcutane ous pen injector 04/02 completed Not Available Not Available Not Available OneTouch Ultra Blue Test Strip active Not Available Not Available Not Available OneTouch Delica Plus Lancet 30 gauge active Not Available Not Available Not Available Fluad Quad 5569-7357 (65yr up)(PF) 60 mcg (15 mcg x 4)/0.5mL IM syringe active Not Available Not Available Not Available Ozempic 1 mg/dose (4 mg/3 mL) subcutane ous pen injector INJECT 1MG SUBCUTAN EOUSLY ONCE A WEEK active Not Available Not Available No t Available Ozempic 0.25 mg or 0.5 mg (2 mg/3 mL) subcutane ous pen injector 10/08 completed Not Available Not Available Not Available Klayesta 100,000 unit/gram topical powder APPLY TO THE AFFECTED AREA(S) TOPICALL Y TWICE DAILY prn rash active Not Available Not Available No t Available Vitals Date Recorded Body height Body mass index (BMI) Body weight Heart rate Respiratory rate Oxygen saturation Oxygen saturation in Arterial blood by Pulse oximetry Systolic blood pressure Diastolic blood pressure Provider Name and Address Organization Details Last Updated DateTime 4 165.1 cm 37.8 kg/m2 651020. 47 g 83 /min 14 /min 98 % 98 % 146 mm[Hg] 66 mm[Hg] Jennifer Metzger PA [employer] [facility] [employer] [facility] 4 11:58:54 Date Recorded Body height Body mass index (BMI) Body weight Body temperature Oxygen saturation Oxygen saturation in Arterial blood by Pulse oximetry Heart rate Systolic blood pressure Diastolic blood pressure Provider Name and Address Organization Details Last Updated DateTime 4 165.1 cm 37.8 kg/m2 764497. 47 g 97.3 [degF] 99 % 99 % 87 /min 136 mm[Hg] 80 mm[Hg] Roxi Kramer RN [facility] [employer] [facility] 4 10:04:22 Date Recorded Body height Body mass index (BMI) Body weight Heart rate Respiratory rate Oxygen saturation Oxygen saturation in Arterial blood by Pulse oximetry Systolic blood pressure Diastolic blood pressure Provider Name and Address Organization Details Last Updated DateTime 4 165.1 cm 37.8 kg/m2 450035. 47 g 82 /min 14 /min 98 % 98 % 124 mm[Hg] 62 mm[Hg] Silvia Rogers [employer] [facility] [employer] [facility] 4 11:32:17 Date Recorded Body height Body mass index (BMI) Body weight Heart rate Respiratory rate Body temperature Oxygen saturation Oxygen saturation in Arterial blood by Pulse oximetry Systolic blood pressure Diastolic blood pressure Provider Name and Address Organization Details Last Updated DateTime 4 165.1 cm 37.8 kg/m2 030924. 47 g 84 /min 14 /min 98 [degF] 98 % 98 % 130 mm[Hg] 68 mm[Hg] Shawnee Mcmahan [employer] [facility] [facility] 4 14:13:54 Date Recorded Body height Body mass index (BMI) Body weight Heart rate Respiratory rate Oxygen saturation Oxygen saturation in Arterial blood by Pulse oximetry Systolic blood pressure Diastolic blood pressure Provider Name and Address Organization Details Last Updated DateTime 5 165.1 cm 37.8 kg/m2 108343. 47 g 92 /min 14 /min 98 % 98 % 127 mm[Hg] 68 mm[Hg] Silvia Ken [facility] [employer] [facility] 12:39:45 Social History Question Answer Notes LastModified by [employer] Details LastModified Time Tobacco Smoking Status Never Smoker Sondra Colon nahum, [facility] 99tests [facility] 06/12/2023 11:54:24 What Is Your Level Of Alcohol Consumption? Occasional [id number] Information not available 07/17/2022 What Is Your Level Of Caffeine Consumption? Moderate [id number] Information not available 07/17/2022 How Much Tobacco Do You Chew? None [id number] Information not available 07/17/2022 Which Illicit Or Recreational Drugs Have You Used? None Information not available 06/12/2023 Do You Or Have You Ever Used E-cigarettes Or Vape? 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 04/02/2023 Information not available 06/12/2023 Do You Use Your Seat Belt Or Car Seat Routinely? Yes Information not available 06/12/2023 Do You Or Have You Ever Used Smokeless Tobacco? Never Used Smokeless Tobacco [id number] Information not available 07/17/2022 Do You Participate In Social Media? Yes Information not available 06/12/2023 Do You Feel Stressed (tense, Restless, Nervous, Or Anxious, Or Unable To Sleep At Night)? [id number] Information not available 06/12/2023 Do You Use Any Illicit Or Recreational Drugs? No Information not available 06/12/2023 Sex: Unknown Functional Status Question Answer Note LastModified by Organizat ion Details LastModified Time What is your exercise level? None [id number] Information not available 07/17/2022 Mental Status None recorded. Family History Relationship Description Onset Age of this Age Resolved Age Notes LastModified by Organization Details LastModified Time Mother Hypertensive disorder [id number] Not available 07/17/2022 04:42:09 Mother Diabetes mellitus [id number] Not available 07/17/2022 04:42:09 Mother Asthma [id number] Not available 07/17/2022 04:42:09 Maternal Grandfather Heart disease [id number] Not available 07/17/2022 04:42:09 Father Malignant tumor of pharynx Not available 2024 12:30:18 Brother Diabetes mellitus [email or web address] Not available 2023 12:07:15 Brother Hypertensive disorder [email or web address] Not available 2023 12:07:51 Sister Cerebrovascu lar accident Not available 01/2025 12:30:18 Sister Hypertensive disorder [email or web address] Not available 2023 12:07:53 Medical History Condition Response HIGH CHOLESTEROL / HYPERLIPIDEMIA Y THYROID DISEASE Y OBESITY Y URINARY/BLADDER/KIDNEY PROBLEMS Y CORONARY ARTERY DISEASE (CAD) Y USE OF BLOOD THINNERS Y DIABETES, TYPE Y HEARTBURN / REFLUX Y USE OF NSAIDS Y HEART DISEASE/HEART PROBLEMS Y HYPERTENSION Y CANCER: SPECIFY Y Gynecological History Statement/Question Response Menses Monthly N Obstetrics History GPAL:G 0 P 0 0 0 0 Immunizations Vaccine Type Date Status Note Provider Nam e and Address Organization Details Recorded Time COVID-19, mRNA, LNP-S, PF, 30 mcg/0.3 mL dose 1 completed Not Available [facility] 07/17/2022 05:03:11 COVID-19, mRNA, LNP-S, PF, 30 mcg/0.3 mL dose 1 completed Not Available [facility] 07/17/2022 05:03:11 COVID-19, mRNA, LNP-S, PF, 30 mcg/0.3 mL dose 1 completed Not Available [facility] 07/17/2022 05:03:12 Influenza, split virus, quadrivalent, preservative 1 completed Not Available [facility] 07/17/2022 05:03:12 Influenza, split virus, quadrivalent, preservative 0 completed Not Available [facility] 07/17/2022 05:03:12 Influenza, split virus, quadrivalent, preservative 8 completed Not Available [facility] 07/17/2022 05:03:12 Influenza, split virus, quadrivalent, preservative 7 completed Not Available [facility] 07/17/2022 05:03:12 Influenza, high-dose, trivalent, PF 6 completed Not Available [facility] 07/17/2022 05:03:12 Influenza, split virus, trivalent, preservative 5 completed Not Available [facility] 07/17/2022 05:03:12 Influenza, split virus, trivalent, preservative 4 completed Not Available [facility] 07/17/2022 05:03:12 Influenza, split virus, trivalent, preservative 3 completed Not Available [facility] 07/17/2022 05:03:12 pneumococcal polysaccharide PPV23 2 completed Not Available [facility] 07/17/2022 05:03:13 zoster live 1 completed Not Available [facility] 07/17/2022 05:03:13 DTaP 1 completed Not Available [facility] 07/17/2022 05:03:13 pneumococcal polysaccharide PPV23 1 completed Not Available [facility] 07/17/2022 05:03:13 Hep B, adult 9 completed Not Available [facility] 07/17/2022 05:03:13 Hep B, adult 9 completed Not Available [facility] 07/17/2022 05:03:13 Tdap 9 completed Not Available [facility] 07/17/2022 05:03:13 Pneumococcal conjugate PCV 13 6 completed Not Available [facility] 07/17/2022 05:03:14 Hep B, adult 9 completed Not Available [facility] 07/17/2022 05:03:14 Past Encounters Encounter ID Performer Location Encounter Start Date Encounter Closed Date Diagnosis/Indication Diagnosis SNOMED-CT Code Diagnosis ICD10 Code Diagnosis Note [id number] [facility] Delbert berry [address] [facility] [address] , [place] [address] 10/03/2020 00:00:00 10/03/2020 09:44:29 [id number] [facility] [place] [address] [place] [address] 04/05/2021 00:00:00 04/05/2021 11:22:22 [id number] [facility] [place] [address] [place] [address] 10/02/2021 00:00:00 10/02/2021 10:05:43 [id number] [facility] [place] [address] [place] [address] 04/04/2022 00:00:00 04/04/2022 09:59:48 [id number] Richelle Lee MD [facility] Primary [facility] [place] [address] [place] [address] 07/24/2022 10:59:01 07/24/2022 11:50:19 Incontinence of feces 39334893 R15.9 K64.9 Avoid dry toilet paperIncre ase water/fibe r and avoid straining with stoolsSitz baths TID prnf/u in 4 weeks or sooner if needed Gastroesop hageal reflux disease 203360807 K21.9 [id number] Richelle Lee MD [facility] Primary [facility] [place] [address] [place] [address] 09/30/2022 11:50:03 09/30/2022 12:24:14 Diabetes mellitus 35784480 E11.9 Essential hypertension 56206550 I10 Disorder o f vitamin B12 419196151 E53.8 Hyperlipidemia 94606889 E78.5 Z79.899 Hypothyroidism 28556026 E03.9 Gastroesop hageal reflux disease without esophagitis 950728063 K21.9 resolved, f/u prn [id number] Richelle Lee MD [facility] Primary [facility] [place] [address] [place] [address] 04/02/2023 14:05:35 04/03/2023 17:22:01 Adult health examination 400950246 Z00.00 Labs up to date with endocrinol ogyDEXA and mammogram orderedHas completed shingrix series, pneumonia shotsHas received covid booster 02/08Has received flu vaccine 02/08Tdap 2019Recomm end RSV vaccineCol onoscopy referral given Screening for disorder 320361003 Z13.9 Screening mammography 24 144988 Z12.31 Postmenopausal state 764 44234 Z78.0 Screening for malignant neoplasm of colon 109739668 Z12.11 Vaginitis 73693928 N76.0 hold jardiance 6 weeks and call with symptom update Diabetes mellitus 204815 09 E11.9 sees endocrinol ogy [id number] Alex Hummel DPM [facility] [place] [address] [place] [address] 06/12/2023 11:53:21 06/18/2023 09:42:19 Onychomycosis of toenails 730859994 B35.1 daily foot hygieneRx ketoconazo lefollow-u p 4 months Diabetes mellitus 179556 09 E11.9 manage diabetes daily per PCP recommenda tionCheck feet daily for wounds infectionF ollow-up in 4 months for diabetic foot care [id number] Richelle Lee MD [facility] [address] [facility] [address] [address] [place] [address] 10/02/2023 09:56:31 10/02/2023 10:30:30 Postmenopausal state 48712039 Z78.0 check DEXA Overactive urinary bladder 077531688 N32.81 refill given Vaginitis 00068617 N76.0 refill given Onychomyco sis of toenails 980713683 B35.1 refill given Pain in left thumb 42307 54081 506675 M79.645 Massage, heat, topicalswi ll refer to ortho if no improvemen t [id number] Alex Hummel DPM [facility] [place] [address] [place] [address] 10/09/2023 11:22:40 10/10/2023 10:46:10 Onychomycosis of toenails 268558971 B35.1 daily foot hygieneRx ketoconazo lefollow-u p 4 months Type 2 arelis betes mellitus 38759682 E11.9 continue with diabetic control per PCP recommenda tions [id number] Alex Hummel DPM [facility] [place] [address] [place] [address] 12/29/2023 13:54:04 12/30/2023 13:55:29 Diabetes mellitus 16006547 E11.9 manage diabetes daily per PCP recommenda tionCheck feet daily for wounds infectionF ollow-up in 4 months for diabetic foot care Onychomyco sis of toenails 974752578 B35.1 daily foot hygieneRx ketoconazo lefollow-u p 4 months [id number] Alex Hummel DPM [facility] [place] [address] [place] [address] 05/27/2024 12:28:47 06/02/2024 09:03:57 Diabetes mellitus 13330941 E11.9 manage diabetes daily per PCP recommenda tionCheck feet daily for wounds infectionF ollow-up in 4 months for diabetic foot care Dystrophia unguium 76707 009 L60.3 Nails 1 through 10 were debrided with sharp mechanical debridemen t without incident. Nails were debrided and greater than 50% length and thickness where needed. Health Concerns Section Related Observation LastModified by Organization Detai ls LastModified Time None Recorded Concern Status LastModified by Organization Details LastModified Time None Recorded Advance Directives Directive None Recorded Payers Encounter Date Sequence Insurance Name Policy Number Policy Mckeon Covered Member ID Mckeon Member ID Guarantor Name 06/12/2023 1 [employer] (MEDICARE REPLACEMENT PPO) [id number] Princess Pham [id number] Princess Pham 10/02/2023 1 [employer] (MEDICARE REPLACEMENT PPO) [id number] Princess Pham [id number] Princess Pham 10/09/2023 1 [employer] (MEDICARE REPLACEMENT PPO) [id number] Princess Pham [id number] Prinecss Pham 12/29/2023 1 [employer] (MEDICARE REPLACEMENT PPO) [id number] Princess Pham [id number] Princess Pham 05/27/2024 1 [employer] (MEDICARE REPLACEMENT PPO) [id number] Princess Pham [id number] Princess Pham Notes Date Note Type Note Provider Name and Address Organization Details Recorded Time 06/12/2023 text/html . Patient is a 72-year-old female who presents the office with complaints of diabetes. Patient is here for diabetic foot exam. Patient states overall she is doing well denies any open wounds or infection of the foot. Patient states she does not have any numbness tingling or burning in the feet. Patient states she tries exercise daily. Patient states her blood sugars are under control. Patient states she is concerned about the thickened nature to her toenails. Patient has noticed that she has thickened dystrophic and discolored toenails. Patient denies any treatment for this issue. Patient denies any other complaints. Alex Hummel DPM [address] [place], [place], [address], [employer] 06/12/2023 13:29:52 10/02/2023 text/html a1c 6.5 Went UC after falling, xrays looked ok on knees and toes. On ibuprofen and cyclobenzaprine pain in left thumb radiates up to forearm, no numbness/tingling, no redness/swelling/heat better on ibuprofen Richelle Lee MD [address], [address], [place], [address], [employer] 10/05/2023 09:52:19 10/09/2023 text/html . Patient is a 73-year-old female diabetic who returns the office for diabetic foot care. Patient also has onychomycosis of the toenails which he is using topical ketoconazole. Patient states overall she is doing well she denies any open wounds or infection. Patient denies any other complaints. Alex Hummel DPM [address], [place], [address], [employer] 10/09/2023 13:20:37 12/29/2023 text/html . Patient is 73-year-old female diabetic who returns the office for diabetic foot care she denies any new wounds or pain with walking. Patient denies any intermittent claudication walking or rest pain. Alex Hummel DPM [address], [facility] [address], [place], [address], [employer] 12/29/2023 15:17:06 05/27/2024 text/html . Patient is a 73-year-old female who returns the office for diabetic foot care she denies any new complaints and would like her nails cut as she has difficulty cutting them. Alex Hummel DPM [address], [facility] [address], [place], [address], [employer] 05/27/2024 14:27:28 OBGyn Episode No OBEpisode recorded.
== END 2024-07-26 09:30 | disposition home or self-care (01) ==
LOC: ANHIMG 09:31
PROVIDERS: PCP Nurse Practitioner Adult Health; Visit Provider Nurse Practitioner Adult Health
DX: Z12.31 Encounter for screening mammogram for malignant neoplasm of breast (principal)
CPT/HCPCS: 77063; 77067

== ENCOUNTER 2024-12-14 08:29 | Outpatient (CLI) | payer MEDICARE, SELFPAY ==
--- OUTSIDE RECORDS SUMMARY | 2024-12-14 08:34 | XMS_ITS | Clinical Summary ---
Author Organization [facility] Address [address] [facility] [place] [address] Care Team Providers Care Cloth Shader Name Role Phone Floresita Leon RICARDO-NUCLEAR RADIOLOGIST Primary Care Provider + Source Comments [facility],non-owned Affiliates and Associated Physician Practices is amultiple site organization consisting of ambulatory clinics and hospital sitesin [place], [place], [place] and [place]. This disclosure is being madepursuant to the Care Everywhere program and may not contain all information available regarding this patient. Last updated 18.[facility] Allergies No known active allergies Medications * Be aware that medications may not be up to date on this document. Alwaysverify current medications with the patient. benazepril (Lotensin) 20 MG tablet Take 1 (one) tablet by mouth once daily 09/22/19 24 Active levothyroxine (Synthroid) 100 MCG tablet Take 1 (one) tablet by mouth once daily 07/20/19 25 Active metoprolol tartrate IR (Lopressor) 50 MG tablet Take 1 (one) tablet by mouth 2 times daily 10/29/19 24 Active metFORMIN ER 24hr (Glucophage XR) 500 MG tablet Take 2 (two) tablets by mouth 2 times daily 07/20/19 25 Active Praluent 150 MG/ML injection INJECT 1 PEN UNDER THE SKIN ONCE EVERY 2 WEEKS 07/22/19 24 Active Ozempic, 1 MG/DOSE, 4 MG/3ML pen INJECT 1MG SUBCUTANEOUSLY ONCE A WEEK 10/10/20 24 Active coenzyme Q10 100 MG capsule Co Q-10 (with Vit E) 100-5 mg-unit capsule Active cyanocobalamin (Vitamin B-12) 1000 MCG tablet Take 100 mcg by mouth Active ketoconazole (Nizoral) 2 % cream APPLY TO AFFECTED TOENAILS DAILY Active nitroGLYCERIN (Nitrostat) 0.3 MG tablet Active nystatin (Mycostatin) 407411 UNIT/GM powder APPLY TO THE AFFECTED AREA(S) TOPICALLY TWICE DAILY prn rash Active oxyBUTYnin CR 24hr (Ditropan-XL) 5 MG tablet Take by mouth once daily Active tacrolimus (Protopic) 0.1 % ointment APPLY TOPICALLY TO RASH AREAS ON GROIN TWICE DAILY FOR FLARES THEN USE TWO TIMES A WEEK FOR MAINTENANCE Active acetaminophen (Tylenol) 500 MG tablet Take 2 (two) tablets by mouth every 8 hours Maximum allowable Acetaminophen amount = 4 Grams (4000 mg) / 24 hours. 180 tablet 5 9:17 AM CDT 08/31/19 25 Active docusate sodium (Colace) 100 MG capsuleIndicat ions:Constipat ion Take 1 (one) capsule by mouth once daily Narcotics can cause constipation. Please take while taking narcotic pain medications to avoid constipation. Do not take if having loose stools. Reasons: Constipation 30 capsule 5 9:17 AM CDT 08/31/19 25 Active polyethylene glycol 3350 (MiraLax) 17 g packetIndicati ons:Constipati on Take 17 (seventeen) g by mouth once daily Narcotics can cause constipation. Please take while taking narcotic pain medications to avoid constipation. Do not take if having loose stools. Reasons: Constipation 30 packet 08/31/19 25 Active Additional Information Patient not taking.Reason: Other, Reported on 09/07/2024 cyclobenzaprin e (Flexeril) 5 MG tablet Take 1 (one) tablet by mouth 3 times daily as needed 30 tablet 5 2:43 PM CDT 08/24/19 25 025 Discontin ued(List Clean-Up) aspirin EC (Ecotrin) 81 MG tablet Take 1 (one) tablet by mouth 2 times daily 025 Discontin ued(List Clean-Up) oxyCODONE, immediate release, (Roxicodone) 5 MG tabletIndicati ons:Fall, initial encounter Take 1 (one) tablet by mouth every 6 hours as needed for Pain 42 tablet 9:17 AM CDT 08/31/19 025 Discontin ued(List Clean-Up) apixaban (Eliquis) 2.5 MG tablet Take 1 (one) tablet by mouth 2 times daily 70 tablet 10/01/19 025 Discontin ued(List Clean-Up) Active Problems Problem Noted Date Diagnosed Date Type 2 diabetes mellitus wit hout complication, without long-term current use of insulin 08/23/2024 Portal hypertension 08/22/2024 Cyst of ovary, unspecified laterality 08/22/2024 Fall, initial encounter 08/22/2024 Closed trimalleolar fracture of left ankle, initial encounter 08/22/2024 Closed fracture of left ankle, initial encounter 08/22/2024 Abrasion of scalp, initial encounter 08/22/2024 Encounters Date Type Department Care Team Description 11/23/2024 9:45 AM CDT Office Visit [facility] - [facility]opedics [address] [place] [phone] Rene Galan DO Hennessey, Margaret Ann, PA-C Closed trimalleolar fracture of left ankle with routine healing, subsequent encounter (Primary Dx) 11/23/2024 9:31 AM CDT - 11/23/2024 11:59 PM CDT Hospital Encounter [facility] [address] [facility] [place] [address] Rene Galan DO Discharge Disposition: Home or Self Care 11/23/2024 Travel 11/16/2024 Orders Only [facility] [address] [place] [phone] Rene Galan DO Closed trimalleolar fracture of left ankle with routine healing, subsequent encounter 10/12/2024 10:00 AM CDT Office Visit [facility] [address] [place] [phone] Alba Johnson PA-C Closed trimalleolar fracture of left ankle with routine healing, subsequent encounter (Primary Dx); Syndesmotic disruption of left ankle, subsequent encounter 10/12/2024 9:50 AM CDT - 10/12/2024 11:59 PM CDT Hospital Encounter [facility] [address] [facility]. [facility] [place] [address] Rene Galan, DO Discharge Disposition: Home or Self Care 10/12/2024 Travel 10/07/2024 Orders Only [facility] [address] [place] [address], [place] [address] Rene Galan, Closed trimalleolar fracture of left ankle, initial encounter 09/30/2024 Orders Only [facility] [address] [place] [phone] Rajani Orozco PA-C Closed trimalleolar fracture of left ankle, initial encounter ; Syndesmotic disruption of left ankle, initial encounter from Last 3 Months Immunizations Immunization Administration Dates Next Due TDAP (7yrs+) 08/22/2024 Social History Tobacco Use Types Packs/Day Years Used Date Smoking Tobacco: Never Smokeless Tobacco: Never Tobacco Cessation:Counseling Given: Not Answered Alcohol Use Standard Drinks/Week Comments Never 0 (1 standard drink = 0.6 oz pur e alcohol) AUDIT-C Answer Date Recorded Q1: How often do you have a drink containing alc ohol? Never 08/30/2024 Q2: How many drinks containi ng alcohol do you have on a typical day when you are drinking? 1 or 2 08/30/2024 Q3: How often do you have six or more drinks on one occasion? Never 08/30/2024 Overall Financial Resource Strain (CARDIA) Answe r Date Recorded How hard is it for you to pa y for the very basics like food, housing, medical care, and heating? Not very hard 08/22/2024 PHQ-2 Answer Date Recorded Patient Health Questionnaire-2 Score 2 11/16/2024 [facility] Occupat ional Health - Occupational Stress Questionnaire Answer Date Recorded Do you feel stress - tense, restless, nervous, or anxious, or unable to sleep at night because your mind is troubled all the time - these days? Not at all 08/22/2024 Hunger Vital Sign Answer Date Recorded Within the past 12 months, y ou worried that your food would run out before you got the money to buy more. Never true 08/23/19 25 Within the past 12 months, t he food you bought just didn't last and you didn't have money to get more. Never true 08/22/2024 PRAPARE - Transportation Answer Date Re corded In the past 12 months, has l ack of transportation kept you from medical appointments or from getting medications? No 10/2024 In the past 12 months, has l ack of transportation kept you from meetings, work, or from getting things needed for daily living? No 08/22/2024 Housing Stability Vital Sign Answer Ralph e Recorded In the last 12 months, was t here a time when you were not able to pay the mortgage or rent on time? No 08/22/2024 In the past 12 months, how m any times have you moved where you were living? 0 08/22/2024 At any time in the past 12 m [facility], were you homeless or living in a penitentiary (including now)? No 08/22/2024 Comments No Sex and Gender Information Value Date Recorded Sex Assigned at Female 08/24/2024 2:12 PM CDT Legal Sex Female 6:33 PM [employer] Gender Identity Female 08/24/2024 2:12 PM CDT Sexual Orientation Straight 08/24/2024 2: 12 PM CDT Last Filed Vital Signs Vital Sign Reading Time Taken Comments Blood Pressure 109/46 08/31/2024 7:15 AM CDT Pulse 78 08/31/2024 7:15 AM CDT Temperature 36.8 C (98.2 F) 08/31/2024 7:15 AM CDT Respiratory Rate 16 08/31/2024 7:15 AM CDT Oxygen Saturation 97% 08/31/2024 7:15 AM CDT Inhaled Oxygen Concentration 36% 08/22/2024 1 1:56 AM CDT Weight 91.6 kg (202 lb) 11/23/2024 9:39 AM CDT Height 165.1 cm (5' 5) 10/12/2024 9:58 AM CDT Body Mass Index 33.61 10/12/2024 9:58 AM CDT Plan of Treatment Upcoming Encounters Date Type Department Care Team (Late st Contact Info) Description 01/25/2025 9:45 AM CDT Office Visit [facility] [address] [place] [address], [place] [phone] Rene Galan, DO [address] [place] [address] [place] [address] Health Maintenance Due Date Last Done Comments BONE DENSITY TESTING 1950 COLOGUARD (AGES 45-75) - COLON CA SCREENING 1950 COLON MONITORING 1950 COLONOSCOPY - COLON CA SCREENING 1950 CT COLONOGRAPHY - COLON CA SCREENING 1950 Colorectal Cancer Screening 1950 FIT - COLON CA SCREENING 1950 FLEX SIG - COLON CA SCREENING 1950 MAMMOGRAM 1950 HEPATITIS C SCREENING 08/29/1968 PNEUMOCOCCAL VACCINE 50+ (1 of 2 - PCV) 1969 DIABETES-STATIN 1990 ZOSTER VACCINE (1 of 2) 2000 Respiratory Syncytial Virus (RSV) Vaccine Pt: or over 60 yrs (1 - Risk 60-74 years 1-dose series) 2010 DIABETES - URINE PROTEIN SCREENING 05/19/2024 02/11/2023 MEDICARE AWV CALENDAR YEAR 2024 COVID-19 VACCINE ( season) 2024 02/23/2024, 02/03/2023, 03/14/2022, Additional history exists DIABETES RETINOPATHY SCREENING 08/23/2024 DIABETES-FOOT EXAM WITH MONOFILAMENT 08/23/2024 INFLUENZA VACCINE (#1) 2025 , 02/03/2023, 03/14/2022, Additional history exists DIABETES-HGB A1C 02/22/2025 08/23/2024, 02/2024, 07/29/2023, Additional history exists DIABETES-SERUM CREATININE 08/31/20252024, 08/23/2024, 08/22/2024, Additional history exists DTAP/TDAP/TD VACCINES (2 - Td or Tdap) 08/22/2034 08/22/2024 DEPRESSION SCREENING Completed 08/24/2024 HEPATITIS B VACCINE Aged Out No longe r eligible based on patient's age to complete this topic HIB VACCINE Aged Out No longer eligi ble based on patient's age to complete this topic HPV VACCINE Aged Out No longer eligi ble based on patient's age to complete this topic MENINGOCOCCAL (Group B) VACCINE SHARED DECISION-MAKING Aged Out No longer eligible based on patient's age to complete this topic MENINGOCOCCAL GROUPS A/C/Y/W VACCINE Aged Out No longer eligible based on patient's age to complete this topic Goals Goal Patient Goal Type Associated Problems Recent Progress Patient-Stated? Author Mobility General No Lizy Marmolejo Note: Expected end date:TTWB The goal is to maintain or improve your mobility at the optimum level for you. Interventions: Perform independent activity per your ability Medical Devices Implanted Type Area Under Presser Device Identifier Shelf Expiration Date Model / Serial / Lot Screw 2.7mm 10mm T8 Slf-Tap Lck Va Strdr Implanted:Qty: 1 on 08/30/2024 by Rene Galan DO at [facility] Left: Ankle Synthes Usa [id number] / / 3.5 Mm Cannulated Screw System Implanted:Qty: 1 on 08/30/2024 by Rene Galan, at [facility] Left: Ankle [employer]ynthes [employer] [id number] S / / Screw 2.7mm 14mm T8 Slf-Tap Lck Va Strdr Implanted:Qty: 1 on 08/30/2024 by Rene Galan DO at [facility] Left: Ankle Synthes Usa [id number] / / Screw 2.7mm 16mm T8 Slf-Tap Lck Va Strdr Implanted:Qty: 3 on 08/30/2024 by Rene Galan, DO at [facility] Left: Ankle Synthes [employer] [id number] / / Plate 5 Hl Fib Lt Dist Lat 99mm Contr Implanted:Qty: 1 on 08/30/2024 by Rene Galan DO at [facility] Left: Ankle Synthes [employer] [id number] / / 3.5 Cortical (Stardrive) Implanted:Qty: 1 on 08/30/2024 by Rene Galan DO at [facility] Left: Ankle Synthes [employer]sa 02.206.212S / / 3.5 Cortical (Stardrive) Implanted:Qty: 1 on 08/30/2024 by Rene Galan DO at [facility] Left: Ankle Synthes Usa [id number] / / 3.5 Cortical (Stardrive) Implanted:Qty: 1 on 08/30/2024 by Reen Galan DO at [facility] Left: Ankle Synthes Usa [id number] / / 3.5 Mm Cannulated Screw System Implanted:Qty: 1 on 08/30/2024 by Rene Galan DO at [facility] Left: Ankle Synthes [employer]sa [id number] S / / Explanted Type Area Under Presser Device Identifier Shelf Expiration Date Model / Serial / Lot Wire K 1.6mm 150mm Troc Pnt Ss Fx Explanted:Qty: 2 on 08/30/2024 by Rene Galan DO at [facility] Left: Ankle Synthes Usa [id number] / / Procedures Procedure Name Priority Date/Time Associated Diagnosis Comments XR ANKLE LEFT 3VW OR MORE Routine 11/23/2024 9:35 AM CDT Closed trimalleolar fracture of left ankle with routine healing, subsequent encounter XR ANKLE LEFT 3VW OR MORE Routine 10/12/2024 9:58 AM CDT Closed trimalleolar fracture of left ankle, initial encounter BASIC METABOLIC PANEL (CALCIUM TOTAL) Routine 08/31/2024 12:27 AM CDT Closed trimalleolar fracture of left ankle with routine healing, subsequent encounter HEMOGLOBIN A1C Routine 08/23/2024 12:20 AM CDT from Last 3 Months or Most Recently Relevant to Health Maintenance Results * XR Ankle Left 3Vw or More (11/23/2024 9:35 AM CDT) Only the most recent of2 resultswithin the time period is included. Anatomical Region Laterality Modality Lower Extremity Radiographic Rosalba ging 11/23/2024 9:37 AM CDT Impressions 11/23/2024 9:38 AM CDT IMPRESSION: Unchanged alignment. > Interpreting Provider: Chirag William MD on 11/23/2024 9:38 AM Narrative 11/23/2024 9:38 AM CDT PROCEDURE: XR ANKLE LEFT 3VW OR MORE DATE/TIME OF EXAM: 11/23/2024 9:35 AM CLINICAL INFORMATION: None relevant/not provided if blank. Indication: S82.852D: Closed trimalleolar fracture of left ankle with routine healing, subsequent encounter Additional History: COMPARISON: 10/12/2024. FINDINGS: There is again internal fixation of a distal fibular fracture with a plate and screws including a syndesmotic screw, and a medial malleolar fracture 2 screws. The hardware is intact and the alignment is unchanged. There is no dislocation. Joint spaces are normal. There is mild soft tissue swelling. Procedure Note Chirag William MD - 11/23/2024 PROCEDURE: XR ANKLE LEFT 3VW OR MORE DATE/TIME OF EXAM: 11/23/2024 9:35 AM CLINICAL INFORMATION: None relevant/not provided if blank. Indication: S82.852D: Closed trimalleolar fracture of left ankle with routine healing, subsequent encounter Additional History: COMPARISON: 10/12/2024. FINDINGS: There is again internal fixation of a distal fibular fracture with aplate and screws including a syndesmotic screw, and a medial malleolar fracture2 screws. The hardware is intact and the alignment is unchanged. There isno dislocation. Joint spaces are normal. There is mild soft tissueswelling. IMPRESSION: Unchanged alignment. > Interpreting Provider: Chirag William MD on 11/23/2024 9:38 AM Rene Galan DO DIAGNOSTIC IMAGING ORDERABLES Final Result * (ABNORMAL) BASIC METABOLIC PANEL (CALCIUM TOTAL) (08/31/2024 12:27 AM CDT) BUN 18 7 - 26 mg/dL 08/31/2024 1:41 AM [facility] Creatinine 0.82 0.56 - 0.96 mg/dL 08/31/2024 1:41 AM [facility] Sodium 138 136 - 145 mmol/L 08/31/2024 1:41 AM [facility] Potassium 4.6(H) 3.5 - 4.5 mmol/L 08/31/2024 1:41 AM [facility] Chloride 103 98 - 107 mmol/L 08/31/2024 1:41 AM [facility] CO2 24 22 - 29 mmol/L 08/31/2024 1:41 AM [facility] Glucose 166(H) 70 - 99 mg/dL 08/31/2024 1:41 AM [facility] Calcium 8.1(L) 8.4 - 10.2 mg/dL 08/31/2024 1:41 AM [facility] Anion Gap 11 6 - 16 08/31/2024 1:41 AM [facility] BUN/Creatinine Ratio 22 7 - 23 08/31/2024 1:41 AM [facility] Osmolality Calculated 292 275 - 295 mOsm/kg 08/31/2024 1:41 AM [facility] eGFR by CKD-EPI 75(L) >=90 mL/min/1.7 3 m2 08/31/2024 1:41 AM [facility] Blood BLOOD SPECIMEN / Unknown Lab Venipuncture / Unknown 08/31/2024 12:27 AM CDT 08/31/2024 1:08 AM T us Rene Galan DO LAB - CHEMISTRY ORDERABLES Fin al Result [facility] [address] [place] [address], [facility] [phone] * HEMOGLOBIN A1C (08/23/2024 12:20 AM CDT) Pathologist [facility] Hemoglobin A1c 5.6 <=5.6 % 08/23/2024 10:25 AM [facility] Estimated Average Glucose 114 mg/dL 08/23/2024 10:25 AM CDT [facility] Comment: HbA1c Interpretation: Normal : < 5.7% Pre-diabetes: 5.7-6.4% Diabetes: Equal to or greater than 6.5% Test results diagnostic of diabetes should be repeated for confirmation. Treatment target values recommended by ADA and other clinical organizations should be used to evaluate metabolic control in patients. Reference: [place] Diabetes Association, Standards of Care in Diabetes -2020 In patients 70 years and older consider HbA1c target range of 7.0-7.5% (Reference: Donta Gomez et al. JAMDA. 2012) The Sebia assay for the measurement of HbA1c is a National Glycohemoglobin Standardization Program (NGSP) certified method. Blood BLOOD SPECIMEN / Unknown Lab Venipuncture / Unknown 08/23/2024 12:20 AM CDT 08/23/2024 12:20 AM CDT Marco Antonio Kc MD LAB - CHEMISTRY ORDERABLES Final Result [facility] [address] [place] [address], [facility] [phone] from Last 3 Months or Most Recently Relevant to Health Maintenance Insurance [employer] MEDICARE ADV SELF PAY NO INSURANCE Member Subscriber Plan / Payer (Ef fective for All Dates) Name:Jody Zacarias Member ID:Not on file Relation to Subscriber:Not on file Name:JODY ZACARIAS Subscriber ID:Not on file (Home) Address: [place] [address] Payer ID:Not on file Group ID:Not on file Type:Self Pay Address: [place], [place] * Guarantor: JODY ZACARIAS Account Type Relation to Patient Date of Phone Billing Address Personal/Family Spouse Advance Directives * Full Code (Latest Code Status on File) Date Activated Date Inactivated Comments 08/30/2024 3:09 PM 08/31/2024 12:32 PM * Full Code Date Activated Date Inactivated Comments 08/22/2024 6:53 PM 08/23/2024 7:22 PM Care Teams Cloth Shader Relationship Specialty Start Date End Date Floresita Leon APRN-NUCLEAR RADIOLOGIST Family Medicine [address] [address] PCP - General 08/22/24
--- OUTSIDE RECORDS SUMMARY | 2024-12-14 08:34 | XMS_ITS | Continuity of Care Document ---
Author Organization [facility] Address [address] [facility] [address] [place] [address] Phone Care Team Providers Care Cardiac Technician Name Role Phone Shanks OD, Mian Unavailable [...] Copied on Encounter Office/outpat ient Visit, [facility], [address], [place], [place], [id number], [place] tel:[phone] [facility] [place] [employer] No Information Oct- 2-201 0 Shanks OD Mian. [address] [facility] [place] [place] , [address], [place], [address], [place]. tel:[phone] [facility], [address], [place], [place], [id number], [place] tel:[phone] [facility] [place] [employer] No Information Feb- 6-200 9 Shanks OD Mian. [address] , [address], [place], [address], [place]. tel:[phone] Referring Provider: Mian Gomez, [facility] [address], [place], [address]. tel:[phone] [facility] Eye [facility], [address] [place] [address] [address], [place], [place], [id number], [place] tel:[phone] [facility] No Information 2 8-200 9 Shanks OD Mian. [address], [place], [place], [facility], [place]. tel:[phone] Referring Provider: Mian Shanks OD Patricia, [address], [place], [place], [facility]. tel:[phone] Office/outpat ient Visit, [facility], [address] [place] [address] [address], [place], [place], [id number], [place] tel:[phone] [facility] [place] [employer] No Information 1 6-200 9 Shanks OD Mian. [facility] [address], [place], [address], [place]. tel:[phone] Referring Provider: Mian Shanks OD A, [facility] [address], [place], [place], [facility]. tel:[phone] [facility], [address] [place] [address] [address], [place], [place], [id number], [place] tel:[phone] [address] [facility] [address] No Information Dec-0 1-200 8 Shanks OD Mian. [facility] [address], [place], [address], [place]. tel:[phone] Referring Provider: Mian Shanks OD A, [facility] [address], [place], [address]. tel:[phone] [facility], [address] [place] [address] [address], [place], [place], [id number], [place] tel:[phone] [address] [facility] No Information Morgan-3 0-200 8 Shanks OD Mian. [address] [place] [address] , [address], [place], [address], . tel:[phone] Referring Provider: Mian Gomez, [address] [place] [address] [address], [place], [place], [facility]. tel:[phone] [facility], [address], [place], [place], [id number], tel:[phone] [address] [facility] No Information Morgan-0 4-200 8 Shanks OD Mian. [address] [place] [address] , [address], [place], [address], [place]. tel:[phone] [facility], [address], [place], [place], [id number], tel:[phone] Formerly named [facility] No Information Dec-2 9-200 6 Shanks OD Mian. [address] [place] [address] [address], [place], [address], [place]. tel:[phone] Family History Family Member Type Diagnosis Age At Onset No Information Payers Payer name Insurance type Covered alliance party ID Authorgemaa huyen(s) [facility] Commercial [id number] Social History Type Description Quantity Date Captured [...]
--- OUTSIDE RECORDS SUMMARY | 2024-12-14 08:35 | XMS_ITS | Clinical Summary ---
Author Organization [facility] Address [address] [place] [address] Care Team Providers Care Chef Kitchen Manager Name Role Phone Edward Floresita KALIA Primary Care Provider [phone] Antonia Contreras MD Unavailable Priscila Carey NP Unavailable Allergies Active Allergy Reactions Criticality Noted Date Comments Exenatide Nausea only Low Exenatide Microspheres Nausea only Low 12/10/2016 Itrnieo-Knj-Bzn Reductase Inhibitors Nausea only Low 12/10/2016 Other reaction(s): Myalgias (Muscle Pain) Medications coenzyme Q10 (CO Q-10) 200 mg capsule take one by oral route one time every day 0 08/07/19 13 Active ketoconazole (NIZORAL) 2 % cream apply by topical route every day to the affected area(s) 0 0 03/10/20 13 Active aspirin 81 mg tablet Take according to gvxv-not-ovetozn package directions 0 0 07/20/19 08 Active Ca carb-D3-mag df-hky-zpee-Zn (CALTRATE + D3 PLUS MINERALS) 300 mg-800 [...] Take by mouth daily 07/26/19 23 Active lancets (OneTouch Delica Plus Lancet) 30 gauge miscIndications: Type 2 diabetes mellitus with hyperglycemia, with long-term current use of insulin ([facility]) Check CBG BID 200 each 3 08/27/19 23 Active Praluent Pen 150 mg/mL pen injector INJECT 1 PEN UNDER THE SKIN ONCE EVERY 2 WEEKS 02/11/20 23 Active benzonatate (TESSALON) 100 mg capsule Active influenza quadrivalent [id number] (Fluad Quad 2020-21,65y up,,PF,) 60 mcg (15 mcg x 4)/0.5 mL syringe Active coenzyme V83-scrwoae E (Co Q-10, with Vit E,) 100-5 [...] EARLY MORNINGBEFORE BREAKFAST 90 tablet 3 07/20/19 Active levothyroxine (SYNTHROID) 100 mcg tablet Take 1 tablet (100 mcg total) by mouth tracer bullet section supervisor before breakfast 90 tablet 3 07/20/19 Active metFORMIN XR (GLUCOPHAGE XR) 500 mg 24 hr tabletIndication s:Type 2 diabetes mellitus with hyperglycemia, with long-term current use of insulin (HCC) Take 2 tablets (1,000 mg total) by mouth 2 (two) times a day 360 tablet 3 07/20/19 Active OneTouch Ultra Test stripIndications :Type 2 diabetes mellitus with hyperglycemia, with long-term current use of insulin (HCC) Use to test BG twice daily Dx: E11.65 200 strip 6 09/18/19 Active Active Problems Problem Noted Date Diagnosed Date [...] 140mg q2wks. Last lipid panel: 07/24/21 LDL=14, GS=755. Will update lipid panel today. Verified that she uses [employer]. Aware to check results/results letter in [employer]. Will contact by phone if needed. Assessment & Plan (08/06/2022 1:41 PM CDT): Diet and exercise Very well controlled Continue Repatha Assessment & Plan (01/10/2022 10:04 AM CDT): Chronic problem. On PCSK9i therapy (intolerant of statins), no changes. Assessment & Plan (07/24/2021 1:47 PM DIRECTOR OF SURGERY): Chronic, well controlled Continue current meds Check [...] Repatha Assessment & Plan (06/06/2020 1:33 PM DIRECTOR OF SURGERY): Goal of treatment , LDL cholesterol less [...] panel Assessment & Plan (05/05/2018 2:45 PM DIRECTOR OF SURGERY): Per cardiology Assessment & Plan (01/13/2018 1:49 [...] 08/26/2017 Assessment & Plan (05/05/2018 2:44 PM DIRECTOR OF SURGERY): Importance of following diet and exercising discussed. [...] update labs today. Verified that she uses [employer]. Aware to check results/results letter in [employer]. Will contact by phone if needed. Had DM eye exam earlier this year at [facility] in [place]; letter sent to get copy of report. [...] changes. Assessment & Plan (07/24/2021 1:48 PM DIRECTOR OF SURGERY): Hba1c was Lab Results Component Value Date [...] regimen Assessment & Plan (06/06/2020 1:32 PM DIRECTOR OF SURGERY): Hba1c was Lab Results Component Value Date [...] Follow up in July once back from [place]. Assessment & Plan (10/29/2018 10:53 AM CDT): Your Hba1c today was: Lab Results Component Value Date HGBA1C 5.8 % 10/29/2018 meaning a 3 month average sugar of : 107 Your goal hba1c is under 7.0 to prevent senior care diabetes complications ( eye , kidney and [...] exam. Assessment & Plan (05/05/2018 2:48 PM DIRECTOR OF SURGERY): A1c 7.3. Continue with same medication. Focus [...] goal hba1c is under 7.0 to prevent check scaler diabetes complications ( eye , kidney and [...] goal hba1c is under 7.0 to prevent senior care diabetes complications ( eye , kidney and [...] visit. Assessment & Plan (04/22/2017 11:45 AM DIRECTOR OF SURGERY): Hba1c was 7.8 today, indicating suboptimal DM [...] update TFTs today. Verified that she uses [employer]. Aware to check results/results letter in [employer]. Will contact by phone if needed. Assessment & Plan (08/06/2022 1:42 PM CDT): Chronic, well controlled Continue Levothyroxine Assessment & Plan (02/18/2019 10:39 AM CDT): Clinically and biochemically euthyroid. Continue current dose LT4 replacement. Assessment & Plan (07/30/2018 10:04 AM CDT): Continue on current dose of thyroid replacement hormone. Assessment & Plan (05/05/2018 2:45 PM DIRECTOR OF SURGERY): Will check TFTs Assessment & Plan (12/10/2016 [...] mychart. Aware to check results/results letter in [employer]. Will contact by phone if needed. Assessment & Plan (08/06/2022 1:41 PM CDT): Chronic, well controlled Importance of low salt diet and exercise were discussed Continue current meds, including Benazepril Assessment & Plan (01/10/2022 10:03 AM CDT): Controlled on current medications, no changes. Assessment & Plan (07/24/2021 1:47 PM DIRECTOR OF SURGERY): Chronic, well controlled Continue current meds Assessment & Plan (11/21/2020 1:37 PM CDT): Goal blood pressure is less than 140/85 Low salt diet was discussed andd recommended The importance of daily aerobic exercise was also emphasized. Continue current meds, including RAFA-I or ARB, e.g. Benazepril Check microalbumin Assessment & Plan (06/06/2020 1:33 PM DIRECTOR OF SURGERY): Goal blood pressure is less than 140/85 [...] medications. Assessment & Plan (05/05/2018 2:45 PM DIRECTOR OF SURGERY): Controlled on current medications. Assessment & Plan [...] ARB Assessment & Plan (04/22/2017 11:46 AM DIRECTOR OF SURGERY): Goal blood pressure is less than 140/85 [...] NEC/NOS Assessment & Plan (04/22/2017 11:46 AM DIRECTOR OF SURGERY): Goal of treatment , LDL cholesterol less [...] Encounters Date Type Department Care Team Description 09/16/[address] [facility] Diabetes and Endocrinology [address] [place] [id number] Aurora Matthews NP Med Management from Last 3 Months Immunizations Immunization Administration [...] staff should administer the PHQ-9) 0 02/26/2024 PHQ-9 Answer Date Recorded PHQ-9 Total Score 0 02/26/2024 Comments Unknown Sex and Gender Information Value Date Recorded Sex Assigned at Not on file Legal Sex Female 11:44 AM DIRECTOR OF SURGERY Gender Identity Female 06/05/2020 5:19 PM DIRECTOR OF SURGERY Sexual Orientation Straight 06/05/2020 5: 19 PM DIRECTOR OF SURGERY Obstetrics History Last Filed Vital Signs Vital [...] 2:10 PM CDT Height 165.1 cm (5' 5) 02/26/2024 2:10 PM CDT Body Mass Index 36.79 02/26/2024 2:10 PM CDT Plan of Treatment Health Maintenance Due Date Last Done Comments Breast Cancer Screening-Mammogram 1950 Colon Cancer Screening-Colonoscopy 1950 Hepatitis C Screening 1950 Osteoporosis Screening-Bone Density Scan 1950 Well Visit 65+ 09/04/2015 Foot Exam 08/07/2023 08/06/2022, 12/18, 07/24/2021, Additional history exists Covid-19 Vaccine (2023- 5 season) 2024 02/03/2023, 02/20/2021, 08/09/2020, Additional history exists Dilated Eye Exam 10/13/2024 10/14/2023, , 03/31/2020, Additional history exists Influenza Vaccine (#1) 2025 , 03/27/2020, 02/28/2018, Additional history exists Hemoglobin A1C 02/22/2025 08/23/2024, 02/16, 07/29/2023, Additional history exists Albumin Creatinine Ratio, Urine 02/25/2025 02/26/2024, 02/11/2023, 09/25/2021, Additional history exists Depression Screening 02/25/2025 02/26/2024, 02/26/2024, 07/24/2021, Additional history exists Fall Risk Assessment 02/25/2025 02/26/2024 Lipid Panel 02/25/2025 02/26/2024, 01/18, 07/24/2021, Additional history exists eGFR 02/25/2025 02/26/2024, 01/18, 09/25/2021, Additional history exists DTaP/Tdap/Td Vaccine (4 - Td or Tdap) 08/22/2034 08/22/2024, 09/15/2018, 11/20/2010 Zoster Vaccine Completed 11/30/2018, 08/17, [...] 2:59 PM CDT 02/26/2024 7:23 PM CDT Antonia Contreras MD LAB BLOOD ORDERABLES Final Resul t Performing Organization Address [facility] de Phone Number [facility] [address] [place] [address] * Albumin Creatinine Ratio, Urine (02/26/2024 2:59 [...] 7:01 PM CDT Antonia Contreras MD LAB URINE ORDERABLES Final Resul t Performing Organization Address [facility] de Phone Number [facility] [address] [place] [address] * Lipid panel (02/26/2024 2:59 PM CDT) [...] on 2018. Triglycerides 93 <=149 mg/dL JOHN Comment: Interpretive Data Ages < or = [...] on 2018. HDL 63 >=40 mg/dL JOHN Comment: Interpretive Data Ages < or = [...] 2018. LDL, calculated 31 <=129 mg/dL JOHN Comment: Interpretive Data Ages < or = [...] NCEP Expert Panel. Circulation 2004;110:227 3. Mike Moe al. NICKY Cardiol. 2020 September 16;5(5):540-548. doi: 10.1001/jamacardio.2020.0013 Current Interpretive Data was last revised on 2024. Non-HDL Cholesterol 49 mg/dL JOHN Comment: Interpretive Data Ages < or = [...] revised on 2018. Chol/HDL ratio 2 JOHN KEYON Blood 02/26/2024 2:59 PM CDT 02/26/2024 7:01 PM CDT Antonia Contreras MD LAB [place] [address] [address] Department [place] [address] * POCT hemoglobin A1c (02/26/2024 2:13 PM CDT) Hemoglobin A1C, POC 5.9 4.0 - 5.6 % Comment:None Capillary blood 02/26/2024 2 :13 PM CDT Antonia Contreras MD POINT OF CARE TEST ORDERABLES Fi nal Result * DIABETES EYE EXAM (10/14/2023 10:50 AM CDT) Sandra Provider HEALTH MAINTENANCE Edited Result - Final from Last 3 Months or Most Recently Relevant to Health Maintenance Insurance AETNA MEDICARE AETNA MEDICARE Care Teams Chef Kitchen Manager Relationship Specialty Start Date End Date Floresita Leon NP PCP - General 08/16/16 [place] [address] [address] Consulting Physician Endocrinology Diabetes & Metabolism 11/12/18 [place] [address] [address] [address] Nurse Practitioner Internal Medicine 11/12/18
--- OUTSIDE RECORDS SUMMARY | 2024-12-14 08:35 | XMS_ITS | Referral Summary ---
Author Organization [address] [facility] Address [address] [place] [address] Care Team Providers Care Baseball Hand Sewer Name Role Phone Kaveh Leonie ENTERPRISE SERVICES MANAGER Primary Care Provider Antonia Contreras MD Unavailable Priscila Carey NP Unavailable [phone] Encounters Date Type Department Care Team Description 09/16/2024 Telephone [facility] Diabetes and Endocrinology [address] [place] [address] Aurora Matthews NP Med Management from Last 3 Months Allergies Active Allergy Reactions Criticality Noted Date Comments Exenatide Nausea only Low Exenatide Microspheres Nausea only Low 12/10/2016 Izgdtod-Nxd-Gma Reductase Inhibitors Nausea only Low 12/10/2016 Other reaction(s): Myalgias (Muscle Pain) Medications coenzyme Q10 (CO Q-10) 200 mg capsule take one by oral route one time every day 0 08/07/19 13 Active ketoconazole (NIZORAL) 2 % cream apply by topical route every day to the affected area(s) 0 0 03/10/20 13 Active aspirin 81 mg tablet Take according to gxqg-ocw-xmpsoei package directions 0 0 07/20/19 08 Active Ca carb-D3-mag kd-vyv-izbl-Zn (CALTRATE + D3 PLUS MINERALS) 300 mg-800 [...] with long-term current use of insulin (HCC) Check CBG BID 200 each 3 08/27/19 23 Active Praluent Pen 150 mg/mL pen injector INJECT 1 PEN UNDER THE SKIN ONCE EVERY 2 WEEKS 02/11/20 23 Active benzonatate (TESSALON) 100 mg capsule Active influenza quadrivalent 3256-7507 (Fluad Quad 2020-21,65y up,,PF,) 60 mcg (15 mcg x 4)/0.5 mL syringe Active coenzyme J37-tlfachj E (Co Q-10, with Vit E,) 100-5 [...] 1 tablet (100 mcg total) by mouth creative services manager before breakfast 90 tablet 3 07/20/19 25 Active metFORMIN XR (GLUCOPHAGE XR) 500 mg 24 hr tabletIndication s:Type 2 diabetes mellitus with hyperglycemia, with long-term current use of insulin (HCC) Take 2 tablets (1,000 mg total) by mouth 2 (two) times a day 360 tablet 3 07/20/19 25 Active OneTouch Ultra Test stripIndications :Type 2 diabetes mellitus with hyperglycemia, with long-term current use of insulin (HCC) Use to test BG twice daily Dx: E11.65 200 strip 6 09/18/19 25 Active Active Problems Problem Noted Date Diagnosed [...] 140mg q2wks. Last lipid panel: 07/24/21 LDL=14, AE=791. Will update lipid panel today. Verified that she uses [employer]. Aware to check results/results letter in [facility]. Will contact by phone if needed. Assessment & Plan (08/06/2022 1:41 PM CDT): Diet and exercise Very well controlled Continue Repatha Assessment & Plan (01/10/2022 10:04 AM CDT): Chronic problem. On PCSK9i therapy (intolerant of statins), no changes. Assessment & Plan (07/24/2021 1:47 PM ASBESTOS PIPE SUPERVISOR): Chronic, well controlled Continue current meds Check [...] Repatha Assessment & Plan (06/06/2020 1:33 PM ASBESTOS PIPE SUPERVISOR): Goal of treatment , LDL cholesterol less [...] panel Assessment & Plan (05/05/2018 2:45 PM ASBESTOS PIPE SUPERVISOR): Per cardiology Assessment & Plan (01/13/2018 1:49 [...] 08/26/2017 Assessment & Plan (05/05/2018 2:44 PM ASBESTOS PIPE SUPERVISOR): Importance of following diet and exercising discussed. [...] update labs today. Verified that she uses [facility]. Aware to check results/results letter in [facility]. Will contact by phone if needed. Had DM eye exam earlier this year at [facility] in [place]; letter sent to get copy of report. [...] changes. Assessment & Plan (07/24/2021 1:48 PM ASBESTOS PIPE SUPERVISOR): Hba1c was Lab Results Component Value Date [...] regimen Assessment & Plan (06/06/2020 1:32 PM ASBESTOS PIPE SUPERVISOR): Hba1c was Lab Results Component Value Date [...] Follow up in July once back from [place]. Assessment & Plan (10/29/2018 10:53 AM CDT): Your Hba1c today was: Lab Results Component Value Date HGBA1C 5.8 % 10/29/2018 meaning a 3 month average sugar of : 107 Your goal hba1c is under 7.0 to prevent technician terminal and repeater diabetes complications ( eye , kidney and [...] exam. Assessment & Plan (05/05/2018 2:48 PM ASBESTOS PIPE SUPERVISOR): A1c 7.3. Continue with same medication. Focus [...] goal hba1c is under 7.0 to prevent technician terminal and repeater diabetes complications ( eye , kidney and [...] goal hba1c is under 7.0 to prevent mcc diabetes complications ( eye , kidney and [...] visit. Assessment & Plan (04/22/2017 11:45 AM ASBESTOS PIPE SUPERVISOR): Hba1c was 7.8 today, indicating suboptimal DM [...] update TFTs today. Verified that she uses [facility]. Aware to check results/results letter in [facility]. Will contact by phone if needed. Assessment & Plan (08/06/2022 1:42 PM CDT): Chronic, well controlled Continue Levothyroxine Assessment & Plan (02/18/2019 10:39 AM CDT): Clinically and biochemically euthyroid. Continue current dose LT4 replacement. Assessment & Plan (07/30/2018 10:04 AM CDT): Continue on current dose of thyroid replacement hormone. Assessment & Plan (05/05/2018 2:45 PM ASBESTOS PIPE SUPERVISOR): Will check TFTs Assessment & Plan (12/10/2016 [...] mychart. Aware to check results/results letter in [facility]. Will contact by phone if needed. Assessment & Plan (08/06/2022 1:41 PM CDT): Chronic, well controlled Importance of low salt diet and exercise were discussed Continue current meds, including Benazepril Assessment & Plan (01/10/2022 10:03 AM CDT): Controlled on current medications, no changes. Assessment & Plan (07/24/2021 1:47 PM ASBESTOS PIPE SUPERVISOR): Chronic, well controlled Continue current meds Assessment & Plan (11/21/2020 1:37 PM CDT): Goal blood pressure is less than 140/85 Low salt diet was discussed andd recommended The importance of daily aerobic exercise was also emphasized. Continue current meds, including RAFA-I or ARB, e.g. Benazepril Check microalbumin Assessment & Plan (06/06/2020 1:33 PM ASBESTOS PIPE SUPERVISOR): Goal blood pressure is less than 140/85 [...] medications. Assessment & Plan (05/05/2018 2:45 PM ASBESTOS PIPE SUPERVISOR): Controlled on current medications. Assessment & Plan [...] ARB Assessment & Plan (04/22/2017 11:46 AM ASBESTOS PIPE SUPERVISOR): Goal blood pressure is less than 140/85 [...] NEC/NOS Assessment & Plan (04/22/2017 11:46 AM ASBESTOS PIPE SUPERVISOR): Goal of treatment , LDL cholesterol less [...] Immunization Administration Dates Next Due COVID-19 mRNA (Cubito) 0.3 m L (30 mcg) vaccine (12 [...] on file Legal Sex Female 11:44 AM ASBESTOS PIPE SUPERVISOR Gender Identity Female 06/05/2020 5:19 PM ASBESTOS PIPE SUPERVISOR Sexual Orientation Straight 06/05/2020 5: 19 PM ASBESTOS PIPE SUPERVISOR Last Filed Vital Signs Vital Sign Reading [...] of Race in Diagnosing Kidney Disease, JASN 202). The CKD-EPI equation should not be used for patients with unstable renal function and has not been validated in children and those over 70. Current interpretive data was last reviewed 2021. Blood 02/26/2024 2:59 PM CDT 02/26/2024 7:23 PM CDT us Antonia Contreras MD LAB BLOOD ORDERABLES Final Resul t [facility] [address] Department [place] [address] * Albumin Creatinine Ratio, Urine (02/26/2024 2:59 PM CDT) Albumin Ur <12.0 mg/L Comment: Interpretive Data No reference range established. Current interpretive data was last revised 2018. Creatinine Ur 72.5 mg/dL [facility] Comment: Interpretive Data No reference range established. Current interpretive data was last revised 2018. Albumin Creatinine Ratio, Ur <17 1 - 29 mg/g [facility] Urine 02/26/2024 2:59 PM CDT 02/26/2024 7:01 PM CDT us Antonia Contreras MD LAB URINE ORDERABLES Final Resul t [facility] [address] Department [place] [address] * Lipid panel (02/26/2024 2:59 PM CDT) [...] revised on 2018. Triglycerides 93 <=149 mg/dL [facility] Comment: Interpretive Data Ages < or = [...] 2004;110:227 3. Mike Moe al. NICKY Cardiol. 2019September 16;5(5):540-548. doi: 10.1001/[email or web address] Current Interpretive Data was [...] [place] [address] [address] Department [place] [address] * POCT hemoglobin A1c (02/26/2024 2:13 PM CDT) Hemoglobin A1C, POC 5.9 4.0 - 5.6 % Comment:None Capillary blood 02/26/2024 2 :13 PM CDT Antonia Contreras MD POINT OF CARE TEST ORDERABLES Fi nal Result * DIABETES EYE EXAM (10/14/2023 10:50 AM CDT) Historical Provider HEALTH MAINTENANCE Edited Result - Final from Last 3 Months or Most Recently Relevant to Health Maintenance Insurance T MEDICARE AETNA MEDICARE Care Teams Baseball Hand Sewer Relationship Specialty Start Date End Date Floresita Leon NP PCP - General 08/16/16 [place] [address] [address] Consulting Physician Endocrinology Diabetes & Metabolism 11/12/18 [place] [address] [address] Nurse Practitioner Internal Medicine 11/12/18
[2024-12-14 19:39] LABS: Alanine Aminotransferase 17 U/L (6-35); Albumin Level 3.4 g/dL (3.5-5.1); Alkaline Phosphatase 133 U/L (38-126); Aspartate Amino Transferase 61 U/L (14-36); Bilirubin,Total 0.9 mg/dL (0.2-1.3); Total Protein 6.5 g/dL (6.3-8.2)
== END 2024-12-14 08:30 | disposition home or self-care (01) ==
LOC: ANHBWCLAB 08:31
PROVIDERS: PCP Nurse Practitioner Adult Health; Visit Provider Nurse Practitioner Adult Health
DX: K76.9 Liver disease, unspecified (principal)
CPT/HCPCS: 36415; 80076; 86803

== ENCOUNTER 2024-12-17 14:42 | Outpatient (CLI) | payer MEDICARE, SELFPAY ==
--- NOTE | ~2024-12-17 | US_ITS ---
Pelvic ultrasound. Clinical History: Ovarian cyst Technique: Realtime transabdominal and transvaginal scanning of the pelvis was performed. Color flow Doppler and Doppler spectral analysis were performed. Findings: The uterus is absent, compatible prior hysterectomy. The right ovary is not visualized. No significant right ovarian or adnexal mass is seen. The left ovary measures 5.7 x 5.2 x 5.3 cm. Simple left ovarian cyst measures 5.2 x 4.7 x 4.7 cm. There is no evidence of free fluid in the cul de sac. Impression: 5.2 cm simple left ovarian cyst. Status post hysterectomy. Reviewed, dictated and finalized at location . Impression: 5.2 cm simple left ovarian cyst. Status post hysterectomy.
== END 2024-12-17 14:43 | disposition home or self-care (01) ==
LOC: MICIMG 14:43
PROVIDERS: PCP Nurse Practitioner Adult Health; Visit Provider Nurse Practitioner Adult Health
DX: N83.292 Other ovarian cyst, left side (principal); Z90.710 Acquired absence of both cervix and uterus
CPT/HCPCS: 76830; 76856

== ENCOUNTER 2024-12-30 07:41 | Outpatient (CLI) | payer MEDICARE, SELFPAY ==
--- NOTE | ~2024-12-30 | US_ITS ---
US abdomen limited INDICATION: Liver disease. PROCEDURE: Realtime right upper abdominal ultrasound. COMPARISON: No prior studies for comparison. FINDINGS: The pancreas is normal without focal mass or pancreatic ductal dilation. Liver echotexture is increased, consistent with fatty infiltration. There is normal directional flow in the portal ve in. Gallbladder surgically absent. Common bile duct measures 4 mm. No sonographic Currie's sign. IMPRESSION: 1: Fatty infiltration of the liver. Reviewed, dictated and finalized at location A.
== END 2024-12-30 07:42 | disposition home or self-care (01) ==
LOC: MICIMG 07:42
PROVIDERS: PCP Nurse Practitioner Adult Health; Visit Provider Nurse Practitioner Adult Health
DX: K76.0 Fatty (change of) liver, not elsewhere classified (principal)
CPT/HCPCS: 76705

== ENCOUNTER 2025-01-05 03:56 | Day surgery (SDC) | payer MEDICARE, SELFPAY ==
[2024-12-23 12:28] VITALS: BMI 34.8
[2025-01-05 07:47] VITALS: BP 130/54; PULSE 77; RESP 16; TEMP 37.2; O2SAT 100; BMI 34.7
--- NOTE | 2025-01-05 07:59 | WPDANESEPPF ---
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 Patient Data Age: 74 Gender: F Height: 1.65 m Weight: 95 kg Allergies Allergy/AdvReac Type Severity Reaction Status Date / Time Yxevluo-CDJ-AyZ Reductase AdvReac Severe SEVERE LEG Verified 01/05/25 07:54 Inhibitor (Gzmovuu-Pyn-Psy CRAMPS Reductase Inhibitor) exenatide AdvReac Unknown POOR Verified 01/05/25 07:54 APPETITE, NAUSEA Home Medications ?Medication ?Instructions ?Recorded ?Confirmed ?Type alirocumab 150 mg/mL subcutaneous 150 mg subcut USEASDIRECTD 04/23/23 12/23/24 History pen injector (Praluent Pen) aspirin 81 mg tablet 81 mg PO DAILY 04/23/23 12/23/24 History benazepril 20 mg tablet 20 mg PO DAILY 04/23/23 12/23/24 History coQ10 (ubiquinol) 200 mg capsule 200 mg PO DAILY 04/23/23 12/23/24 History levothyroxine 100 mcg tablet 100 mcg PO DAILY 04/23/23 12/23/24 History metoprolol tartrate 50 mg tablet 50 mg PO BID 04/23/23 12/23/24 History semaglutide 1 mg/dose (4 mg/3 mL) 1 mg subcut WEEKLY 03/31/24 12/23/24 History subcutaneous pen injector (Ozempic) nitroglycerin 0.3 mg sublingual See Rx Instructions .Route 06/08/24 12/23/24 Rx tablet .COMPLEX #100 tabs oxybutynin chloride 5 mg 5 mg PO DAILY #90 tabs 07/29/24 12/23/24 Rx tablet,extended release 24 hr Patient hx anesthesia problems: none Family hx anesthesia problems: none Results Review: All pre-operative results and documents have been reviewed as part of the pre-operative evaluation. [facility] Past Medical History Medical History Disorder of thyroid HTN (hypertension) Hyperlipidemia, unspecified Past heart attack Chronic GERD Other specified disorder of gallbladder Diabetes CAD (coronary atherosclerotic disease) Cancer Surgical History Surgical History H/O thyroidectomy Family History Family History Mother Asthma Hypertension Father Hypertension Sibling Diabetes mellitus Social History Social History Smoking status: Never smoker Alcohol intake: never Alcohol use details: 1 drink monthly Substance use: never Substance use type: does not use Living arrangements: with family Occupation/Education: retired Gender identity (if verbalized by the patient): Female Spiritual care concerns: No Agree to blood products: Yes Anes - Eval Final PreProcedure Day of Procedure 01/05/25 07:59 Patient weight: obese Heart: regular rate and rhythm Lungs: clear to auscultation Airway: Mallampati scale class III Neurological: alert and oriented Last oral intake: >/= 8 hours ASA classification: III Emergent: no Anesthetic plan: proceed Anesthesia type and monitoring: general GIVS and standard monitoring Results Review: All pre-operative results and documents have been reviewed as part of the pre-operative evaluation. Informed Consent: The patient's anesthetic plan and its attendant risks and benefits were discussed with the patient/family/POA. Questions were solicited and answers provided to the satisfaction of the patient/family/POA.
[2025-01-05] MEDS: LACTATED RINGERS 1,000 ML 150 ML IV CONT (08:12)
[2025-01-05] MEDS: SIMETHICONE ORAL SUSPENSION 20 MG/0.3 ML 30 ML BOTTLE 1.8 ML PO (08:13)
--- NOTE | 2025-01-05 09:13 | PM.IMHP ---
H&P: HPI History of Present Illness Date/Time: 01/05/25 09:13 Chief Complaint: Dysphagia Narrative: the patient has intermittent dysphagia to solid foods. She states that years ago, she has had an EGD with stretching of an esophageal narrowing. There is no unintentional weight loss but there is daily heartburn which is not controlled. She is referred for EGD. Review of Systems Review of Systems: All systems reviewed & are unremarkable except as noted in HPI and below PMFSH Past Medical History Medical History Disorder of thyroid HTN (hypertension) Hyperlipidemia, unspecified Past heart attack Chronic GERD Other specified disorder of gallbladder Diabetes CAD (coronary atherosclerotic disease) Cancer Surgical History Surgical History H/O thyroidectomy Family History Family History Mother Asthma Hypertension Father Hypertension Sibling Diabetes mellitus Social History Social History Smoking status: Never smoker Alcohol intake: never Alcohol use details: 1 drink monthly Substance use: never Substance use type: does not use Living arrangements: with family Occupation/Education: retired Gender identity (if verbalized by the patient): Female Spiritual care concerns: No Agree to blood products: Yes Meds Home Medications and Allergies Home Medications ?Medication ?Instructions ?Recorded ?Confirmed ?Type alirocumab 150 mg/mL subcutaneous 150 mg subcut USEASDIRECTD 04/23/23 01/05/25 History pen injector (Praluent Pen) aspirin 81 mg tablet 81 mg PO DAILY 04/23/23 01/05/25 History benazepril 20 mg tablet 20 mg PO DAILY 04/23/23 01/05/25 History coQ10 (ubiquinol) 200 mg capsule 200 mg PO DAILY 04/23/23 01/05/25 History levothyroxine 100 mcg tablet 100 mcg PO DAILY 04/23/23 01/05/25 History metoprolol tartrate 50 mg tablet 50 mg PO BID 04/23/23 01/05/25 History semaglutide 1 mg/dose (4 mg/3 mL) 1 mg subcut WEEKLY 03/31/24 01/05/25 History subcutaneous pen injector (Ozempic) nitroglycerin 0.3 mg sublingual See Rx Instructions .Route 06/08/24 01/05/25 Rx tablet .COMPLEX #100 tabs oxybutynin chloride 5 mg 5 mg PO DAILY #90 tabs 07/29/24 01/05/25 Rx tablet,extended release 24 hr Allergies Allergy/AdvReac Type Severity Reaction Status Date / Time [id number] Reductase AdvReac Severe SEVERE LEG Verified 01/05/25 07:54 Inhibitor (Uhmfuqw-Vmp-Ane CRAMPS Reductase Inhibitor) exenatide AdvReac Unknown POOR Verified 01/05/25 07:54 APPETITE, NAUSEA Vital Signs Vital Signs - 24 hr 01/05/25 07:47 Temperature 98.9 F Pulse Rate 77 Respiratory Rate 16 Blood Pressure 130/54 L Pulse Oximetry 100 Oxygen Delivery Room Air Exam Const: General: cooperative and healthy appearing Resp: Effort & Inspection: normal respiratory effort and able to speak in complete sentences Auscultation: clear to auscultation bilaterally Cardio: Rate: regular rate Rhythm: regular rhythm GI: Inspection: normal to inspection GI Palp: No No hepatosplenomegaly present Auscultation: normal bowel sounds Rectal Exam: deferred Skin: General skin exam: normal color Psych: Appearance: grossly normal Mental Status: mental status grossly normal Assessment and Plan Assessment and plan (1) Chronic GERD: Code(s): K21.9 - Gastro-esophageal reflux disease without esophagitis Status: Acute Assessment and Plan: The patient is deemed a good candidate for the procedure. Consent signed. Will proceed.
[2025-01-05 09:33] VITALS: BP 107/53; PULSE 77; RESP 25; O2SAT 96
[2025-01-05 09:43] VITALS: BP 124/69; PULSE 97; RESP 23; O2SAT 99
[2025-01-05 09:53] VITALS: BP 138/68; PULSE 70; RESP 17; O2SAT 99
== END 2025-01-05 10:08 | disposition home or self-care (01) ==
PROVIDERS: PCP Nurse Practitioner Adult Health; Referring Provider Nurse Practitioner Adult Health; Visit Provider Internal Medicine Gastroenterology
PROC: 0DJ08ZZ Inspection of Upper Intestinal Tract, Via Natural or Artificial Opening Endoscopic (ICD-10-PCS; CPT 43235; principal; 2025-01-05 09:00)
DX: K21.9 Gastro-esophageal reflux disease without esophagitis (principal); K31.84 Gastroparesis; K44.9 Diaphragmatic hernia without obstruction or gangrene; E78.5 Hyperlipidemia, unspecified; I10 Essential (primary) hypertension; E11.9 Type 2 diabetes mellitus without complications; I25.10 Atherosclerotic heart disease of native coronary artery without angina pectoris; E07.9 Disorder of thyroid, unspecified; I25.2 Old myocardial infarction; K82.8 Other specified diseases of gallbladder; E66.9 Obesity, unspecified; Z68.34 Body mass index [BMI] 34.0-34.9, adult; Z79.85 Long-term (current) use of injectable non-insulin antidiabetic drugs; Z79.82 Long term (current) use of aspirin; Z98.890 Other specified postprocedural states; Z85.9 Personal history of malignant neoplasm, unspecified
CPT/HCPCS: 43235; 82948; J2003; J2704; J7120

== ENCOUNTER 2025-04-04 09:37 | Outpatient (CLI) | payer MEDICARE, SELFPAY ==
[2025-04-04 19:42] LABS: Add Urine Microscopic? YES; Appearance Urine Clear (Clear); Glucose Urine UA Negative (Negative); Leukocyte Esterase Ur 2+ LEU/UL (Negative); Need Manual Microscopic Reviewed; Nitrate Urine Negative (Negative); Non Pathogenic Casts 0-2; Specific Grav Ur 1.012 (1.001-1.035)
== END 2025-04-04 09:38 | disposition home or self-care (01) ==
PROVIDERS: PCP Nurse Practitioner Adult Health; Visit Provider Nurse Practitioner Adult Health
DX: R39.9 Unspecified symptoms and signs involving the genitourinary system (principal)
CPT/HCPCS: 81001; 87086

== ENCOUNTER 2025-04-11 02:26 | Day surgery (SDC) | payer MEDICARE, SELFPAY ==
[2025-03-22 15:34] VITALS: BMI 34.9
--- OUTSIDE RECORDS SUMMARY | 2025-04-11 02:29 | XMS_ITS | Data Portability ---
Author Organization [place] [facility] [place] [facility], Main Office Address [address] [place] [address] Care Team Providers Care Software Sales Name Role Phone LACHELLEKIRA Primary Care Provider [phone] LACHELLE KIRA Referring Provider [phone] Assessment Encounter Date Assessment Date Assessment LastModified by Organization Details LastModified Time 10/09/2023 10/09/2023 This note is dictated and transcribed by [employer]. Gradall Operator variances may occur. Despite proofreading, typographical errors may occur. Occasional wrong-word or 'rtuyl-l-ocoo' substitutions may have occurred due to the inherent limitations of voice recording. Read the chart carefully and recognize, using context, where substitutions have occurred. Not available 10/09/2023 12:37:07 12/29/2023 12/29/2023 This note is dictated and transcribed by [employer]. Grad[employer] Operator variances may occur. Despite proofreading, typographical errors may occur. Occasional wrong-word or 'snkby-u-floj' substitutions may have occurred due to the inherent limitations of voice recording. Read the chart carefully and recognize, using context, where substitutions have occurred. Not available 12/29/2023 15:16:48 05/27/2024 05/27/2024 This note is dictated and transcribed by [employer]. Gradall Operator variances may occur. Despite proofreading, typographical errors may occur. Occasional wrong-word or 'ykwzj-o-xpap' substitutions may have occurred due to the inherent limitations of voice recording. Read the chart carefully and recognize, using context, where substitutions have occurred. Not available 05/27/2024 14:27:17 Plan of Treatment Reminders Order Date Submit Date Provider Last Modified By Organization Details Last Modified Time Details Appointments None recorded. Lab None recorded. Referral None recorded. Procedures None recorded. Surgeries None recorded. Imaging DEXA - *Please call pt to schedule* 2023 [facility], [address], [address], [place], [address], 5 10:36:01 Medication Orders ketoconazol e 2 % topical cream [facility], [address], [place], [place], [id number], 4 12:37:44 [facility] 100,000 unit/gram topical powder 2023 [facility]95, [address], [place], [place], [id number], 4 10:16:35 oxybutynin chloride ER 5 mg tablet,exte nded release 24 hr 2023 [facility], [facility], [place], [address], 4 10:14:27 ketoconazol e 2 % topical cream 2023 [facility] #70248, [address], [place], [place], [id number], 4 10:16:35 ketoconazol e 2 % topical cream 2023 [facility], [address], [place], [place], [id number], 4 12:46:58 Patient TargetsNo targets recorded. Patient Instructions Encounter Date Encounter Id Patient Instructions Last Modified By Organization Details Last Modified Time 06/12/2023 [id number] diabetic foot care education [email or web address] Not available 06/12/2023 13:29:40 diabetic neuropathy: care instructions Not available 06/12/2023 13:29:40 10/09/2023 [id number] diabetes foot health: care instructions Not available 10/09/2023 12:37:37 Reason for Referral None Reported. Results Created Date Observation Date Name Description Value Unit Range Abnormal Flag Note LastModifiedBy Organization Detail LastModifiedTime 11/24/1911/24/2023 US, doppl er echoc ardio gram No observ ation record ed. [email or web address] [facility] [address], [place], [address], 12/11/2023 09:55:45 03/22/2003/18/2024 DEXA No observ ation record ed. [address], [place], [address], 06/18/2024 10:36:01 03/22/2003/18/2024 MAMMO , scree shun, digit al, bilat eral No observ ation record ed. [address], [place], [address], 06/18/2024 10:36:13 Result Notes None recorded. Problems Name Problem SNOMED Code Status Onset Date Resolution Date Notes Provider Name and Address Organization Details Recorded Time Gastric reflux 668897456 Active Not Available [facility] 3 04:51:32 Chest pain 88494810 Completed Not Available [facility] 3 04:51:32 Type 2 diabetes mellitus without complicat ion 564653843 Completed Not Available [facility] 3 04:51:32 Generaliz ed atheroscl erosis 26831587 Active Not Available [facility] 3 04:51:32 Rosacea 833685743 Active Not Available [facility] 3 04:51:33 Hypothyro idism 00532331 Active Not Available [facility] 3 04:51:33 Wound 024146179 Completed Not Available [facility] 3 04:51:33 Nausea 543490601 Completed Not Available [facility] 3 04:51:33 Type 2 diabetes mellitus 57878486 Active Not Available [facility] 3 04:51:33 Pain of hip region 38607886 Completed Not Available [facility] 3 04:51:33 Cough 89339421 Completed Not Available [facility] 3 04:51:33 Candidias is of skin 85145570 Completed Not Available [facility] 3 04:51:33 Coronary arteriosc lerosis 61668008 Active Not Available [facility] 3 04:51:33 Hyperlipi demia 37887535 Active Not Available [facility] 3 04:51:34 Essential hypertens ion 18081926 Active Not Available [facility] 3 04:51:34 Diabetes mellitus 60404283 Active Not Available [facility] 3 04:51:34 Candidias is 69877615 Completed Not Available [facility] 3 04:51:34 Urge incontine nce of urine 96213975 Active Not Available [facility] 3 04:51:34 Osteopeni a 538780243 Active 2018 Not Available [facility] 3 04:51:32 Pain of toe of right foot 26894887803 9101 Active 2018 Not Available [facility] 3 04:51:32 Paronychi a of toe 591469604 Active 2018 Not Available [facility] 3 04:51:32 Porokerat osis 978362559 Active 2018 Not Available [facility] 3 04:51:33 Disorder of vitamin B12 487277915 Active 2020 Not Available [facility] 3 04:51:32 Incontine nce of feces 67938280 Active 2022 Richelle Lee MD [address] [place] [address], [facility] [address], [place], [address] , [facility] 3 11:44:35 Gastroeso phageal reflux disease 647739275 Active 2022 Richelle Lee MD [address], [address] , [facility] 3 11:48:28 Gastroeso phageal reflux disease without esophagit is 185512335 Active 2022 Richelle Lee MD [address] [address], [place], [address] , [facility] 3 12:18:12 Celluliti s of foot 841142520 Active 2022 Richelle Lee MD [address] [facility], [address] [address], [place], [address] , [facility] 3 16:02:09 Lumbar DXA scan result osteopeni c 150910838 Active 2022 Richelle Lee MD [address], [address] , [facility] 3 14:12:52 Vaginitis 66182818 Active 2022 Richelle Lee MD [address], [address] , [facility] 3 14:23:38 Malignant neoplasm of parathyro id gland 088420284 Active 2023 Jennifer sidhu [place] [facility] 4 12:04:24 Ear problem 769281252 Active 2023 Jennifer sidhu, [place] [facility] 4 12:04:59 Heartburn 88513233 Active 2023 Jennifer sidhu, [place] [facility] 4 12:05:11 Obesity 521207809 Active 2023 Jennifer sidhu, [place] [facility] 4 12:05:34 Disorder of thyroid gland 30700963 Active 2023 Jennifer sidhu, [facility] [employer] [facility] 4 12:05:59 Onychomyc osis of toenails 722134053 Active 2023 Alex Hummel DPM [address], [address], [place], [address] , [facility] [employer] [facility] [employer] 4 12:46:27 Overactiv e urinary bladder 502046612 Active 2023 Richelle Lee MD [address], [address], [place], [address] , [facility] [employer] [facility] [employer] [facility] [employer] 4 10:14:05 Pain in left thumb 41436644051 37300 Active 2023 Richelle Lee MD [address], [address], [place], [address] , [facility] [employer] [facility] [employer] [facility] [employer] 4 09:51:47 Dystrophi a unguium 39530421 Active 2024 Alex Hummel DPM [address], [address], [place], [address] , [facility] [employer] [facility] [employer] [facility] [employer] 5 14:27:06 Notes:female problems/infect ions, urinary/bladder/kidney problems, use of nsaids Problem Notes None recorded. Procedures Surgical History Date Name Laterality Status Provider Name and Address Organization Details Recorded Time 025 Nail Debridement completed Alex Hummel DPM [address], [address], [place], [address], [facility] [employer] [facility] 05/27/2024 14:26:59 024 Nail Debridement completed Alex Hummel DPM [address], [address], [place], [address], [facility] [employer] [facility] [employer] 12/29/2023 15:16:44 024 Nail Debridement completed Alex Hummel DPM [address], [address], [place], [address], [facility] [employer] 10/09/2023 13:20:08 024 Nail Debridement completed Alex Hummel DPM [address], [address], [place], [address], [place] [facility] 06/12/2023 13:18:01 023 colonoscopy completed Richelle Lee MD [address], [address], [place], [address], [place] [facility] 09/26/2023 18:11:36 023 Medicare Wellness CPT Code, subsequent completed Richelle Lee MD [address], [address], [place], [address], [place] [facility] 04/02/2023 14:06:11 parathyroidectomy completed Richelle Lee MD [address], [address], [place], [address], [place] [facility] 07/24/2022 11:31:00 hysterectomy completed Richelle Lee MD [address], [address], [place], [address], [employer] [place] [facility] 07/24/2022 11:31:07 tonsillectomy completed Richelle Lee MD [address], [address], [place], [address], [employer] [place] [facility] 07/24/2022 11:31:13 Mohs surgery completed Richelle Lee MD [address], [address], [place], [address], [place] [facility] 07/24/2022 11:31:22 Cardiac Stent Placement completed Richelle Lee MD [address], [address], [place], [address], [place] [facility] 07/24/2022 11:31:31 cholecystectomy completed Richelle Lee MD [address], [address], [place], [address], [place] [facility] 07/24/2022 11:31:37 Knee Surgery completed Richelle Lee MD [address], [address], [place], [address], [employer] [facility] [employer] 07/24/2022 11:31:57 extraction of cataract completed Richelle Lee MD [address] [facility], [facility] [address], [place], [address], [facility] [employer] [facility] [employer] 07/24/2022 11:32:09 Imaging Results None recorded. Procedure Notes None recorded. Medical Equipment None Reported. Allergies Allergen ID Allergen Name Allergen Category Reaction Reaction Severity Criticality Documentation Date Start Date Code Code System Note Provider Name and Address Organization Details Recorded Time 7975 Product containin g 3-hydroxy -3-methyl glutaryl- coenzyme A reductase inhibitor (product) medicatio n myalgias (muscle pain) Not available Not available 07/17/2022 57501 009 SNOMED Not Available [facility] 3 05:03:19 7976 Byetta medicatio n nausea Not available Not available 07/17/2022 48203 1 RxNorm Not Available [facility] 3 05:03:19 7977 Bydureon medicatio n nausea Not available Not available 07/17/2022 84032 64 RxNorm Not Available [facility] 3 05:03:19 Medications Name Sig Start Date Stop [...] active Not Available Not Available [facility] [employer] 1.5 billion cell capsule Take 1 capsule [...] Available Not Available Not Available [employer] Quad 2353-9737 (65yr up)(PF) 60 mcg (15 mcg x [...] weight Heart rate Respiratory rate Oxygen saturation Systolic And Diastolic Provider Name and Address Organization Details Last Updated DateTime 5 165.1 cm 37.8 kg/m2 003533. 47 g 92 /min 14 /min 98 % 127/68 mm[Hg] Silvia Rogers [employer] 5 12:39:45 Date Recorded Body height Body mass index (BMI) Body weight Heart rate Respiratory rate Oxygen saturation Systolic And Diastolic Provider Name and Address Organization Details Last Updated DateTime 4 165.1 cm 37.8 kg/m2 992967. 47 g 83 /min 14 /min 98 % 146/66 mm[Hg] Jennifer Metzger [employer] 4 11:58:54 Date Recorded Body height Body mass index (BMI) Body weight Body temperature Oxygen saturation Heart rate Systolic And Diastolic Provider Name and Address Organization Details Last Updated DateTime 4 165.1 cm 37.8 kg/m2 508680. 47 g 97.3 [degF] 99 % 87 /min 136/80 mm[Hg] Roxi Kramer RN [facility] [employer] [facility] 4 10:04:22 Date Recorded Body height Body mass index (BMI) Body weight Heart rate Respiratory rate Oxygen saturation Systolic And Diastolic Provider Name and Address Organization Details Last Updated DateTime 4 165.1 cm 37.8 kg/m2 641418. 47 g 82 /min 14 /min 98 % 124/62 mm[Hg] Silvia Ken [facility] [employer] [facility] 4 11:32:17 Date Recorded Body height Body mass index (BMI) Body weight Heart rate Respiratory rate Body temperature Oxygen saturation Systolic And Diastolic Provider Name and Address Organization Details Last Updated DateTime 4 165.1 cm 37.8 kg/m2 940936. 47 g 84 /min 14 /min 98 [degF] 98 % 130/68 mm[Hg] Shawnee Mcmahan [facility] [employer] [facility] 4 14:13:54 Social History Question Answer Notes LastModified by [employer] Details LastModified Time Tobacco Smoking Status Never Smoker Sondra sidhu [facility] [employer] [facility] 06/12/2023 11:54:24 What Is Your Level Of Caffeine Consumption? Moderate [id number] Information not available 07/17/2022 How Much Tobacco Do You Chew? None [id number] Information not available 07/17/2022 Which Illicit Or Recreational Drugs Have You Used? None Information not available 06/12/2023 What Was The Date Of Your Most Recent Tobacco Screening? 04/02/2023 Information not available 06/12/2023 Do You Use Your Seat Belt Or Car Seat Routinely? Yes Information not available 06/12/2023 Do You Participate In Social Media? Yes Information not available 06/12/2023 Sex: Unknown Functional Status Question Answer Note LastModified by [employer] Details LastModified Time Do you use any illicit or recreational drugs? No Information not available 06/12/2023 What is your level of alcohol consumption? Occasional [id number] Information not available 07/17/2022 Do you or have you ever used smokeless tobacco? 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 Never used electronic cigarettes Information not available 06/12/2023 What is your exercise level? None [id number] Information not available 07/17/2022 Mental Status Question Answer Note LastModified by Organization D etails LastModified Time Do you feel stressed (tense, restless, nervous, or anxious, or unable to sleep at night)? [id number] Information not available 06/12/2023 Family History Relationship Description Onset Age of this Age Resolved Age Notes LastModified by Organization Details LastModified Time Mother Hypertensive disorder [id number] Not available 07/17/2022 04:42:09 Mother Diabetes mellitus [id number] Not available 07/17/2022 04:42:09 Mother Asthma [id number] Not available 07/17/2022 04:42:09 Maternal Grandfather Heart disease [id number] Not available 07/17/2022 04:42:09 Father Malignant neoplasm of pharynx Not available 2024 12:30:18 Brother Diabetes mellitus [email or web address] Not available 2023 12:07:15 Brother Hypertensive disorder [email or web address] Not available 2023 12:07:51 Sister Cerebrovascu lar accident Not available 01/2025 12:30:18 Sister Hypertensive disorder [email or web address] Not available 2023 12:07:53 Medical History Condition Response THYROID DISEASE Y USE OF BLOOD THINNERS Y HEART DISEASE/HEART PROBLEMS Y DIABETES, TYPE Y HEARTBURN / REFLUX Y HYPERTENSION Y HIGH CHOLESTEROL / HYPERLIPIDEMIA Y CANCER: SPECIFY Y OBESITY Y URINARY/BLADDER/KIDNEY PROBLEMS Y USE OF NSAIDS Y CORONARY ARTERY DISEASE (CAD) Y Gynecological History Statement/Question Response Menses Monthly N Obstetrics History GPAL:G 0 P 0 0 0 0 Immunizations Vaccine Type Date Status Note Provider Nam e and Address Organization Details Recorded Time COVID-19, mRNA, LNP-S, PF, 30 mcg/0.3 mL dose 1 completed Not Available [facility] 07/17/2022 05:03:11 COVID-19, mRNA, LNP-S, PF, 30 mcg/0.3 mL dose 1 completed Not Available [facility] 07/17/2022 05:03:11 COVID-19, mRNA, LNP-S, PF, 30 mcg/0.3 mL dose 1 completed Not Available [facility] 07/17/2022 05:03:12 Influenza, split virus, quadrivalent, preservative 1 completed Not Available [facility] 07/17/2022 05:03:12 Influenza, split virus, quadrivalent, preservative 0 completed Not Available [facility] 07/17/2022 05:03:12 Influenza, split virus, quadrivalent, preservative 8 completed Not Available [facility] 07/17/2022 05:03:12 Influenza, split virus, quadrivalent, preservative 7 completed Not Available [facility] 07/17/2022 05:03:12 Influenza, high-dose, trivalent, PF 6 completed Not Available [facility] 07/17/2022 05:03:12 Influenza, split virus, trivalent, preservative 5 completed Not Available [facility] 07/17/2022 05:03:12 Influenza, split virus, trivalent, preservative 4 completed Not Available [facility] 07/17/2022 05:03:12 Influenza, split virus, trivalent, preservative 3 completed Not Available [facility] 07/17/2022 05:03:12 pneumococcal polysaccharide PPV23 2 completed Not Available [facility] 07/17/2022 05:03:13 zoster live 1 completed Not Available [facility] 07/17/2022 05:03:13 DTaP 1 completed Not Available [facility] 07/17/2022 05:03:13 pneumococcal polysaccharide PPV23 1 completed Not Available [facility] 07/17/2022 05:03:13 Hep B, adult 9 completed Not Available [facility] 07/17/2022 05:03:13 Hep B, adult 9 completed Not Available [facility] 07/17/2022 05:03:13 Tdap 9 completed Not Available [facility] 07/17/2022 05:03:13 Pneumococcal conjugate PCV 13 6 completed Not Available [facility] 07/17/2022 05:03:14 Hep B, adult 9 completed Not Available [facility] 07/17/2022 05:03:14 Past Encounters Encounter ID Performer Location Encounter Start Date Encounter Closed Date Diagnosis/Indication Diagnosis SNOMED-CT Code Diagnosis ICD10 Code Diagnosis IMO Codes Diagnosis Note [id number] [facility] [place] [address] [place] [address] 10/03/2020 00:00:00 10/03/2020 09:44:29 [id number] Dustin Negron MD [facility] [place] [facility] [place] [address] [address] 04/05/2021 00:00:00 04/05/2021 11:22:22 [id number] Dustin Negron MD [facility] [place] [facility] [address] [place] [address] 10/02/2021 00:00:00 10/02/2021 10:05:43 [id number] Dustin Negron MD [facility] [place] [address] [place] [address] 04/04/2022 00:00:00 04/04/2022 09:59:[id number] [facility] [place] [address] [facility] [address] [place] [address] 07/24/2022 10:59:01 07/24/2022 11:50:19 Incontinence of feces 90316831 R15.9 K64.9 Avoid dry toilet paperIncre ase water/fibe r and avoid straining with stoolsSitz baths TID prnf/u in 4 weeks or sooner if needed Gastroesop hageal reflux disease 803604825 K21.9 [id number] [facility] Primary Care [facility] [address] [facility] [address] [place] [address] 09/30/2022 11:50:03 09/30/2022 12:24:14 Diabetes mellitus 27888985 E11.9 Essential hypertension 34375807 I10 Disorder o f vitamin B12 376799567 E53.8 Hyperlipidemia 52774080 E78.5 Z79.899 Hypothyroidism 22700504 E03.9 Gastroesop hageal reflux disease without esophagitis 988977589 K21.9 resolved, f/u prn [id number] Richelle Lee MD [facility] [address] [facility] [address] [place] [address] 04/02/2023 14:05:35 04/03/2023 17:22:01 Adult health examination 351536194 Z00.00 Labs up to date with endocrinol ogyDEXA and mammogram orderedHas completed shingrix series, pneumonia shotsHas received covid booster 02/08Has received flu vaccine 02/08Tdap 2019Recomm end RSV vaccineCol onoscopy referral given Screening for disorder 953024480 Z13.9 Screening mammography 24 354827 Z12.31 Postmenopausal state 764 40631 Z78.0 Screening for malignant neoplasm of colon 442242092 Z12.11 Vaginitis 88906421 N76.0 hold jardiance 6 weeks and call with symptom update Diabetes mellitus 747023 09 E11.9 sees endocrinol ogy [id number] Alex Hummel DPM [facility] Pod[facility] [place] Michaud [address] [place] [address] 06/12/2023 11:53:21 06/18/2023 09:42:19 Onychomycosis of toenails 420872303 B35.1 daily foot hygieneRx ketoconazo lefollow-u p 4 months Diabetes mellitus 072948 09 E11.9 manage diabetes daily per PCP recommenda tionCheck feet daily for wounds infectionF ollow-up in 4 months for diabetic foot care [id number] Richelle Lee MD [facility] [place] [address] [facility] [address] [place] [address] 10/02/2023 09:56:31 10/02/2023 10:30:30 Postmenopausal state 99603079 Z78.0 check DEXA Overactive urinary bladder 013108195 N32.81 refill given Vaginitis 87774504 N76.0 refill given Onychomyco sis of toenails 392921678 B35.1 refill given Pain in left thumb 79520 07487 061783 M79.645 Massage, heat, topicalswi ll refer to ortho if no improvemen t [id number] Alex Hummel DPM [facility] [place] [address] [place] [address] 10/09/2023 11:22:40 10/10/2023 10:46:10 Onychomycosis of toenails 323184420 B35.1 daily foot hygieneRx ketoconazo lefollow-u p 4 months Type 2 arelis betes mellitus 19727125 E11.9 continue with diabetic control per PCP recommenda tions [id number] Alex Hummel DPM [facility] [place] [address] [place] [address] 12/29/2023 13:54:04 12/30/2023 13:55:29 Diabetes mellitus 92204715 E11.9 manage diabetes daily per PCP recommenda tionCheck feet daily for wounds infectionF ollow-up in 4 months for diabetic foot care Onychomyco sis of toenails 455107106 B35.1 daily foot hygieneRx ketoconazo lefollow-u p 4 months [id number] Alex Hummel DPM [facility] [place] [address] [place] [address] 05/27/2024 12:28:47 06/02/2024 09:03:57 Diabetes mellitus 41399540 E11.9 manage diabetes daily per PCP recommenda tionCheck feet daily for wounds infectionF ollow-up in 4 months for diabetic foot care Dystrophia unguium [id number] L60.3 Nails 1 through 10 were debrided with sharp mechanical debridemen t without incident. Nails were debrided and greater than 50% length and thickness where needed. Health Concerns Section Related Observation LastModified by Organization Detai ls LastModified Time None Recorded Concern Status LastModified by Organization Details LastModified Time None Recorded Advance Directives Directive None Recorded Payers Insurance Date Sequence Insurance Name Policy Number Policy Mckeon Covered Member ID Mckeon Member ID Guarantor Name 08/23/2024 1 [employer] (MEDICARE REPLACEMENT/ ADVANTAGE - PPO) [id number] Princess Regan Ankit [id number] Princess Villanuevafareed Pham 08/20/2024 1 [place] Princess Regan Ankit [id number] Princess Мария Pham 08/20/2024 1 [facility] (MEDICARE REPLACEMENT/ ADVANTAGE - PPO) [id number] Princess Regan Ankit [id number] Princess Villanuevafareed Pham Notes Date Note Type Note Provider [...] any other complaints. Alex Hummel DPM [address] [facility], [facility] [address], [place], [address], [facility] [employer] 06/12/2023 13:29:52 10/02/2023 text/html ROS as noted in the HPI a1c 6.5 Went UC after falling, xrays looked ok on knees and toes. On ibuprofen and cyclobenzaprine pain in left thumb radiates up to forearm, no numbness/tingling, no redness/swelling/heat better on ibuprofen Richelle eLe MD [address], [place], [address], [facility] 10/05/2023 09:52:19 10/09/2023 text/html . Patient is a 73-year-old female diabetic who returns the office for diabetic foot care. Patient also has onychomycosis of the toenails which he is using topical ketoconazole. Patient states overall she is doing well she denies any open wounds or infection. Patient denies any other complaints. Alex Hummel DPM [address], [place], [address], [facility] 10/09/2023 13:20:37 12/29/2023 text/html . Patient is 73-year-old female diabetic who returns the office for diabetic foot care she denies any new wounds or pain with walking. Patient denies any intermittent claudication walking or rest pain. Alex Hummel DPM [address], [place], [address], [facility] 12/29/2023 15:17:06 05/27/2024 text/html . Patient is a 73-year-old female who returns the office for diabetic foot care she denies any new complaints and would like her nails cut as she has difficulty cutting them. Alex Hummel DPM [address], [place], [address], [facility] 05/27/2024 14:27:28 OBGyn Episode No OBEpisode recorded.
--- OUTSIDE RECORDS SUMMARY | 2025-04-11 02:29 | XMS_ITS | Clinical Summary ---
Author Organization [facility] Address [address] [place] [address] Care Team Providers Care Guide Travel Name Role Phone Edward Floresita KALIA Primary Care Provider [phone] Antonia Contreras MD Unavailable Priscila Carey NP Unavailable [phone] Allergies Active Allergy Reactions Criticality Noted Date Comments Exenatide Nausea only Low Exenatide Microspheres Nausea only Low 12/10/2016 Hvewrhv-Nrb-Bba Reductase Inhibitors Nausea only Low 12/10/2016 Other reaction(s): Myalgias (Muscle Pain) Medications coenzyme Q10 (CO Q-10) 200 mg capsule take one by oral route one time every day 0 3 Active ketoconazole (NIZORAL) 2 % cream apply by topical route every day to the affected area(s) 0 0 3 Active aspirin 81 mg tablet Take according to lgim-xrj-lshubjd package directions 0 0 8 Active Ca carb-D3-mag ei-vnk-veii-Zn (CALTRATE + D3 PLUS MINERALS) 300 mg-800 unit -25 mg-0.5 mg tablet 0 0 7 Active nitroglycerin (NITROSTAT) 0.[address] one tablet under tongue as needed for chest pain every 5 minutes for 3 total doses. If no relief after 3rd dose, GO TO ED 1 09/26/201 9 Active cyanocobalamin (Vitamin B-12) 1,000 mcg tabletIndicati ons:Prevention of Vitamin B12 Deficiency Take 100 mcg by mouth once a week Active oxybutynin XL (DITROPAN-XL) 5 mg 24 hr tablet Take 1 tablet (5 mg total) by mouth daily 2 Active metoprolol tartrate (LOPRESSOR) 50 mg immediate release tablet Take 1 tablet (50 mg total) by mouth 2 (two) times a day 2 Active hydrocortisone (ANUSOL-HC) 2.5 % rectal cream 3 Active omeprazole (PriLOSEC) 40 mg capsule Take by mouth daily 3 Active lancets (OneTouch Delica Plus Lancet) 30 gauge miscIndication s:Type 2 diabetes mellitus with hyperglycemia, with long-term current use of insulin (HCC) Check CBG BID 200 each 3 3 Active Praluent Pen 150 mg/mL pen injector INJECT 1 PEN UNDER THE SKIN ONCE EVERY 2 WEEKS 3 Active benazepriL (LOTENSIN) 20 mg tablet Take 1 tablet (20 mg total) by mouth daily 90 tablet 3 4 Active metFORMIN XR (GLUCOPHAGE XR) 500 mg 24 hr tabletIndicati ons:Type 2 diabetes mellitus with hyperglycemia, with long-term current use of insulin (HCC) TAKE 2 TABLETS TWICE A DAY 360 tablet 3 5 Active levothyroxine (SYNTHROID) 100 mcg tabletIndicati ons:Type 2 diabetes mellitus with hyperglycemia, with long-term current use of insulin ([facility]) TAKE 1 TABLET EARLY MORNINGBEFORE BREAKFAST 90 tablet 3 5 Active OneTouch Ultra Test stripIndicatio ns:Type 2 diabetes mellitus with hyperglycemia, with long-term current use of insulin ([facility]) Use to test BG twice daily Dx: E11.65 200 strip 6 5 Active Ozempic 1 mg/dose (4 mg/3 mL) pen injector injection INJECT 1MG SUBCUTANEOUSLY ONCE A WEEK 9 mL 2 5 Active Active Problems Problem Noted Date Diagnosed Date Morbid (severe) obesity due to excess calories 0 01/10/2022 Assessment & Plan (01/10/2022 10:18 AM CDT): Chronic problem, work on diet and exercise. Hyperlipidemia associated with type 2 diabetes marylu guzman 08/26/2017 Assessment & Plan (01/21/2025 10:10 AM CDT): Chronic problem. Statin intolerance. Currently taking Praluent 150 mg q2wks. Last lipid panel: 02/26/24 LDL=31, TG=93. Will update lipid panel today. Verified that she uses [employer]. Aware to check results/results letter in [employer]. Will contact by phone if needed. Assessment & Plan (02/26/2024 5:46 PM CDT): Chronic, stable.. Update lipid profile c patient can not tolerate statin therapy, Continue Praluent Assessment & Plan (02/11/2023 9:20 AM CDT): Chronic problem. Statin intolerance. Currently taking Statin intolerance, Repatha 140mg q2wks. Last lipid panel: 07/24/21 LDL=14, VO=467. Will update lipid panel today. Verified that she uses [employer]. Aware to check results/results letter in [employer]. Will contact by phone if needed. Assessment & Plan (08/06/2022 1:41 PM CDT): Diet and exercise Very well controlled Continue Repatha Assessment & Plan (01/10/2022 10:04 AM CDT): Chronic problem. On PCSK9i therapy (intolerant of statins), no changes. Assessment & Plan (07/24/2021 1:47 PM LIFE SCIENCES TEACHER): Chronic, well controlled Continue current meds Check [...] Repatha Assessment & Plan (06/06/2020 1:33 PM LIFE SCIENCES TEACHER): Goal of treatment , LDL cholesterol less [...] panel Assessment & Plan (05/05/2018 2:45 PM LIFE SCIENCES TEACHER): Per cardiology Assessment & Plan (01/13/2018 1:49 [...] 08/26/2017 Assessment & Plan (05/05/2018 2:44 PM LIFE SCIENCES TEACHER): Importance of following diet and exercising discussed. Type 2 diabetes mellitus 08/23/2013 Overview (08/23/2016): DMII WO CMP UNCNTRLD Assessment & Plan (01/21/2025 10:40 AM CDT): Chronic problem. Well controlled wo hypoglycemia. A1c 5.5%. Will back ozempic down from 1mg to 0.5mg weekly due to gastric retention found on EGD. Feels that gastroparesis is manageable; does not have symptoms often. Reports poor diet & more bothersome when she eats poorly. Current medications: Metformin XR 1000mg twice daily Ozempic 0.5 mg weekly Will update labs today. Verified that she uses [facility]. Aware to check results/results letter in [employer]. Will contact by phone if needed. UTD on DM eye exam (10/14/23 no DMR [facility]) Strive for regular exercise (30min most days) and diet (get at least 4-5 servings of fruit and veggies daily, avoid processed foods, increase lean protein intake and decrease carb portions as well as fruit juices, regular soda & desserts). Watch carbs and simple sugars. Check the blood sugar daily. Check the feet daily for skin breakdown and infection. Assessment & Plan (02/26/2024 5:45 PM CDT): [...] update labs today. Verified that she uses [employer]. Aware to check results/results letter in [employer]. Will contact by phone if needed. Had DM eye exam earlier this year at [facility] in [place]; letter sent to get copy of report. [...] changes. Assessment & Plan (07/24/2021 1:48 PM LIFE SCIENCES TEACHER): Hba1c was Lab Results Component Value Date [...] regimen Assessment & Plan (06/06/2020 1:32 PM LIFE SCIENCES TEACHER): Hba1c was Lab Results Component Value Date [...] Follow up in July once back from [place]. Assessment & Plan (10/29/2018 10:53 AM CDT): Your Hba1c today was: Lab Results Component Value Date HGBA1C 5.8 % 10/29/2018 meaning a 3 month average sugar of : 107 Your goal hba1c is under 7.0 to prevent terminal carman diabetes complications ( eye , kidney and [...] exam. Assessment & Plan (05/05/2018 2:48 PM LIFE SCIENCES TEACHER): A1c 7.3. Continue with same medication. Focus [...] goal hba1c is under 7.0 to prevent prison diabetes complications ( eye , kidney and [...] goal hba1c is under 7.0 to prevent terminal carman diabetes complications ( eye , kidney and [...] visit. Assessment & Plan (04/22/2017 11:45 AM LIFE SCIENCES TEACHER): Hba1c was 7.8 today, indicating suboptimal DM [...] Overview (08/23/2016): HYPOTHYROIDISM NOS Assessment & Plan (01/21/2025 10:11 AM CDT): Chronic problem. Clinically & biochemically euthyroid. Currently taking levothyroxine 100mcg daily. Will update TFTs today. Verified that she uses [employer]. Aware to check results/results letter in [employer]. Will contact by phone if needed. Assessment & Plan (07/29/2023 1:11 PM CDT): Chronic, well-controlled Continue LT4 therapy with Synthroid 100 mcg daily Assessment & Plan (02/11/2023 9:20 AM CDT): Chronic problem. Currently taking levothyroxine 100mcg daily. Will update TFTs today. Verified that she uses [employer]. Aware to check results/results letter in [employer]. Will contact by phone if needed. Assessment & Plan (08/06/2022 1:42 PM CDT): Chronic, well controlled Continue Levothyroxine Assessment & Plan (02/18/2019 10:39 AM CDT): Clinically and biochemically euthyroid. Continue current dose LT4 replacement. Assessment & Plan (07/30/2018 10:04 AM CDT): Continue on current dose of thyroid replacement hormone. Assessment & Plan (05/05/2018 2:45 PM LIFE SCIENCES TEACHER): Will check TFTs Assessment & Plan (12/10/2016 [...] (08/23/2016): Unspecified essential hypertension Assessment & Plan (01/21/2025 10:10 AM CDT): Chronic problem. Controlled on current Benazepril 20mg daily, metoprolol tartrate 50mg bid Will update labs. Verified that she uses [facility]chart. Aware to check results/results letter in [employer]. Will contact by phone if needed. Assessment & Plan (02/26/2024 5:45 PM CDT): Chronic, stable. Update GFR and microalbumin. Continue benazepril Assessment & Plan (02/11/2023 9:20 AM CDT): Chronic problem. Controlled on current Benazepril 20mg daily, metoprolol tartrate 50mg bid Will update labs. Verified that she uses mychart. Aware to check results/results letter in [employer]. Will contact by phone if needed. Assessment & Plan (08/06/2022 1:41 PM CDT): Chronic, well controlled Importance of low salt diet and exercise were discussed Continue current meds, including Benazepril Assessment & Plan (01/10/2022 10:03 AM CDT): Controlled on current medications, no changes. Assessment & Plan (07/24/2021 1:47 PM LIFE SCIENCES TEACHER): Chronic, well controlled Continue current meds Assessment & Plan (11/21/2020 1:37 PM CDT): Goal blood pressure is less than 140/85 Low salt diet was discussed andd recommended The importance of daily aerobic exercise was also emphasized. Continue current meds, including RAFA-I or ARB, e.g. Benazepril Check microalbumin Assessment & Plan (06/06/2020 1:33 PM LIFE SCIENCES TEACHER): Goal blood pressure is less than 140/85 [...] medications. Assessment & Plan (05/05/2018 2:45 PM LIFE SCIENCES TEACHER): Controlled on current medications. Assessment & Plan [...] ARB Assessment & Plan (04/22/2017 11:46 AM LIFE SCIENCES TEACHER): Goal blood pressure is less than 140/85 [...] NEC/NOS Assessment & Plan (04/22/2017 11:46 AM LIFE SCIENCES TEACHER): Goal of treatment , LDL cholesterol less [...] Encounters Date Type Department Care Team Description 02/02/2025 Orders Only [facility] Diabetes and Endocrinology [address] [place] [phone] Provider, MD Sandra 01/24/2025 Results Follow-Up [facility] Medical [facility] Diabetes and Endocrinology [address] [place] [phone] Aurora Matthews NP Albumin Creatinine Ratio, Urine, Comprehensive metabolic panel, Lipid panel, Additional followed-up results: 3 01/21/2025 10:50 AM CDT Lab [address] [address] Type 2 diabetes mellitus with hyperglycemia, with long-term current use of insulin (HCC); Hypertension associated with diabetes (CMS/HCC); Hyperlipidemia associated with type 2 diabetes mellitus (HCC); Acquired hypothyroidism 01/21/2025 10:00 AM CDT Office Visit [facility] Diabetes and Endocrinology [address] [place] [phone] Aurora Matthews NP Type 2 diabetes mellitus with hyperglycemia, with long-term current use of insulin (HCC) (Primary Dx); Hypertension associated with diabetes (CMS/HCC); Hyperlipidemia associated with type 2 diabetes mellitus (HCC); Acquired hypothyroidism from Last 3 Months Immunizations Immunization Administration Dates Next Due COVID-19 mRNA ([employer]) 0.3 m L (30 mcg) vaccine (12 years and up) 02/03/2023 Pfizer SARS-CoV-2 Monovalent Vaccination (12+ Yrs) PURPLE 02/20/2021,08/09/2020,07/18/2020 Surgical History Surgery Date Site/Laterality Comments HYSTERECTOMY Hysterectomy OTHER SURGICAL HISTORY 2011 percutaneous transluminal balloon angioplasty with insertion of stent into coronary artery Medical History Medical History Date Comments Hx Other Medical parathyroid deonte angelina Disorder of thyroid Thyroid dise ase Diabetes mellitus Diabetes Hypertension Hypertension CAD (coronary artery disease) [...] Recorded PHQ-9 Total Score 0 02/26/2024 Comments No Sex and Gender Information Value Date Recorded Sex Assigned at Not on file Legal Sex Female 11:44 AM LIFE SCIENCES TEACHER Gender Identity Female 06/05/2020 5:19 PM LIFE SCIENCES TEACHER Sexual Orientation Straight 06/05/2020 5: 19 PM LIFE SCIENCES TEACHER Last Filed Vital Signs Vital Sign Reading Time Taken Comments Blood Pressure 130/70 01/21/2025 9:45 AM CDT Pulse 79 01/21/2025 9:45 AM CDT Temperature 37.2 C (99 F) 02/26/2024 2:10 PM CDT Respiratory Rate 18 01/21/2025 9:45 AM CDT Oxygen Saturation - - Inhaled Oxygen Concentration - - Weight 92.9 kg (204 lb 12.8 oz) 01/21/2025 9:45 AM CDT Height 165.1 cm (5' 5) 01/21/2025 9:45 AM CDT Body Mass Index 34.08 01/21/2025 9:45 AM CDT Plan of Treatment Health Maintenance Due Date Last Done Comments Breast Cancer Screening-Mammogram 1950 Colon Cancer Screening-Colonoscopy 1950 Hepatitis C Screening 1950 Osteoporosis Screening-Bone Density Scan 1950 Well Visit 65+ 09/04/2015 Covid-19 Vaccine (5 - 2024-2 6 season) 2025 02/03/2023, 02/20/2021, 08/09/2020, Additional history exists Influenza Vaccine (#1) 2025 , 02/20/2021, 03/27/2020, Additional history exists Depression Screening 02/25/2025 02/26/2024, 02/26/2024, 07/24/2021, Additional history exists Fall Risk Assessment 02/25/2025 02/26/2024 Hemoglobin A1C 07/21/2025 01/21/2025, 04/0 11/2024, 02/26/2024, Additional history exists Albumin Creatinine Ratio, Urine 01/21/2026 01/21/2025, 02/26/2024, 02/11/2023, Additional history exists Foot Exam 01/21/2026 01/21/2025, 07/18, 01/10/2022, Additional history exists Lipid Panel 01/21/2026 01/21/2025, 02/16, 02/11/2023, Additional history exists eGFR 01/21/2026 01/21/2025, 02/16, 02/11/2023, Additional history exists Dilated Eye Exam 11/02/2026 11/02/2024, , 04/16/2022, Additional history exists DTaP/Tdap/Td Vaccine (4 - Td or Tdap) 08/22/2034 08/22/2024, 09/15/2018, 11/20/2010 Zoster Vaccine Completed 11/30/2018, 08/17, 11/20/2010 Hepatitis B Screening Completed 04/27/2019 , 11/30/2018, 10/26/2018 Pneumococcal vaccine 65+ Completed 021, 05/17/2016, 03/04/2012 Procedures Procedure Name Priority Date/Time Associated Diagnosis Comments EGFR Routine 01/21/2025 11:02 AM CDT Type 2 diabetes mellitus with hyperglycemia, with long-term current use of insulin (HCC) Hypertension associated with diabetes (CMS/HCC) T4, FREE Routine 01/21/2025 11:02 AM CDT Acquired hypothyroidism TSH Routine 01/21/2025 11:02 AM CDT Acquired hypothyroidism LIPID PANEL Routine 01/21/2025 11:02 AM CDT Type 2 diabetes mellitus with hyperglycemia, with long-term current use of insulin (HCC) Hyperlipidemia associated with type 2 diabetes mellitus (HCC) COMPREHENSIVE METABOLIC PANEL Routine 01/21/2025 11:02 AM CDT Type 2 diabetes mellitus with hyperglycemia, with long-term current use of insulin (HCC) Hypertension associated with diabetes (CMS/HCC) ALBUMIN CREATININE RATIO, URINE Routine 01/21/2025 11:02 AM CDT Type 2 diabetes mellitus with hyperglycemia, with long-term current use of insulin ([facility]) POCT GLUCOSE Routine 01/21/2025 9:45 AM CDT Type 2 diabetes mellitus with hyperglycemia, with long-term current use of insulin ([facility]) POCT HEMOGLOBIN A1C Routine 01/21/2025 9 :45 AM CDT Type 2 diabetes mellitus with hyperglycemia, with long-term current use of insulin ([facility]) HM DIABETES EYE EXAM Routine 11/02/2024 8:32 AM CDT from Last 3 Months or Most Recently Relevant to Health Maintenance Results * eGFR (01/21/2025 11:02 AM CDT) eGFR 61 >=60 mL/min/1. 73 m2 Comment: Interpretive Data [...] interpretive data was last reviewed 2021. Blood 01/21/2025 11:0 2 AM CDT 01/21/2025 1:52 PM CDT us Auroraronni Matthews LEGAL ADMINISTRATOR LAB BLOOD ORDERABLES Evita l Result Performing Organization Address [facility] Co de Phone Number [address] [place] [address] * (ABNORMAL) Albumin Creatinine Ratio, Urine (01/21/2025 11:02 AM CDT) Albumin Ur <12.0 mg/L Comment: Interpretive Data No reference range established. Current interpretive data was last revised 2018. Creatinine Ur 39.1 mg/dL [facility] Comment: Interpretive Data No reference range established. Current interpretive data was last revised 2018. Albumin Creatinine Ratio, Ur <31(H) 1 - 29 mg/g JOHN Urine 01/21/2025 11:0 2 AM CDT 01/21/2025 1:52 PM CDT us Aurora Matthews LEGAL ADMINISTRATOR LAB URINE ORDERABLES Evita l Result Performing Organization Address City/[facility]/ZIP Co de Phone Number [address] [place] [address] * TSH (01/21/2025 11:02 AM CDT) Thyroid Stimulating Hormone 0.83 0.30 - 4.20 mcIUnit/mL Blood 01/21/2025 11:0 2 AM CDT 01/21/2025 1:52 PM CDT Aurora Matthews LEGAL ADMINISTRATOR LAB BLOOD ORDERABLES Evita l Result Performing Organization Address City/[facility] Co de Phone Number [address] [address] * T4, free (01/21/2025 11:02 AM CDT) Pathologist [facility] [place] Free T4 1.52 0.90 - 1.70 ng/dL Blood 01/21/2025 11:0 2 AM CDT 01/21/2025 1:52 PM CDT Aurora Matthews LEGAL ADMINISTRATOR LAB BLOOD ORDERABLES Evita l Result Performing Organization Address [facility] de Phone Number [address] [address] * Lipid panel (01/21/2025 11:02 AM CDT) Pathologist [facility] [place] Cholesterol 107 30 - 199 mg/dL Comment: Interpretive Data [...] Data was last revised on 2018. Triglycerides 67 <=149 mg/dL [facility] Comment: Interpretive Data Ages < or = [...] Data was last revised on 2018. HDL 67 >=40 mg/dL JOHN Comment: Interpretive Data Ages [...] was last revised on 2018. LDL, calculated 26 <=129 mg/dL JOHN Comment: Interpretive Data Ages [...] was last revised on 2024. Non-HDL Cholesterol 40 mg/dL JOHN Comment: Interpretive Data Ages < [...] last revised on 2018. Chol/HDL ratio 2 [facility] Blood 01/21/2025 11:0 2 AM CDT 01/21/2025 1:52 PM CDT us Aurora Matthews NP LAB BLOOD ORDERABLES Evita l Result [facility] [address] [facility] Department [place] [address] * (ABNORMAL) Comprehensive metabolic panel (01/21/2025 11:02 AM CDT) Sodium 141 135 - 145 mmol/L Potassium, pl 4.6 3.3 - 4.9 mmol/L [facility] Chloride 104 97 - 110 mmol/L [facility] CO2 26 22 - 32 mmol/L [facility] Anion gap 11 2 - 15 mmol/L [facility] BUN 12 6 - 25 mg/dL [facility] Creatinine 0.98 0.60 - 1.10 mg/dL [facility] Glucose 106 70 - 199 mg/dL [facility] Comment: Interpretive Data Fasting glucose >/= 126 mg/dl is diagnostic for diabetes. Fasting is defined as no caloric intake for at least 8 hours. Fasting glucose between 100 mg/dl to 125 mg/dl is diagnostic of prediabetes. In a patient with classic symptoms of hyperglycemia or hyperglycemic crisis, a random glucose >/= 200 mg/dl is diagnostic for diabetes. In the absence of unequivocal hyperglycemia, results should be confirmed by repeat testing. The classification and Diagnosis of Diabetes Diabetes Care 202; 46: S19-S40. Current interpretive data was last revised 2022. Calcium 9.4 8.5 - 10.3 mg/dL [facility] Bilirubin, total 0.8 0.1 - 1.2 mg/dL [facility] Protein, pl 6.9 6.5 - 8.5 g/dL [facility] Albumin 3.7 3.5 - 5.0 g/dL [facility] Alk phos 142(H) 40 - 130 Units/L [facility] ALT 11 7 - 45 Units/L [facility] AST 36 10 - 45 Units/L [facility] Blood 01/21/2025 11:0 2 AM CDT 01/21/2025 1:52 PM CDT us Aurora Matthews NP LAB BLOOD ORDERABLES Evita l Result JOHN [address] [facility] Department [place] [address] * POCT hemoglobin A1c (01/21/2025 9:45 AM CDT) Hemoglobin A1C, POC 5.5 4.0 - 5.6 % Capillary blood 01/21/2025 9 :45 AM CDT us Aurora Matthews NP POINT OF CARE TEST ORDERA BLES Final Result * (ABNORMAL) POCT glucose (01/21/2025 9:45 AM CDT) Glucose Blood, POC 130 Normal Fasting 70 - 100, Random <200 mg/dL Comment:Fruit Snak 1.5 Hrs Blood 01/21/2025 9:45 AM CDT us Aurora Matthews NP POINT OF CARE TEST ORDERA BLES Edited Result - Final * DIABETES EYE EXAM (11/02/2024 8:32 AM CDT) us Historical Provider HEALTH MAINTENANCE Final Result from Last 3 Months or Most Recently Relevant to Health Maintenance Insurance AETNA MEDICARE AETNA MEDICARE Care Teams Guide Travel Relationship Specialty Start Date End Date Floresita Leon NP PCP - General 08/16/16 [place] [address] [address] [place] [address] Consulting Physician Endocrinology Diabetes & Metabolism 11/12/18 [place] [address] [address] [place] [address] Nurse Practitioner Internal Medicine 11/12/18
[2025-04-11 07:38] VITALS: BP 116/78; PULSE 78; RESP 18; TEMP 36.2; O2SAT 100
[2025-04-11] MEDS: LACTATED RINGERS 1,000 ML 150 ML IV CONT (07:51)
[2025-04-11] MEDS: SIMETHICONE ORAL SUSPENSION 20 MG/0.3 ML 30 ML BOTTLE 1.8 ML PO (07:52)
--- NOTE | 2025-04-11 08:24 | PM.IMHP ---
H&P: HPI History of Present Illness Date/Time: 04/11/25 08:25 Chief Complaint: Belching-postprandial fullness Narrative: The patient was referred for EGD in December this year, however the stomach was full of food contents. She returns today for repeat EGD after having had a 2 day liquid diet. Review of Systems Review of Systems: All systems reviewed & are unremarkable except as noted in HPI and below PMFSH Past Medical History Medical History Disorder of thyroid HTN (hypertension) Hyperlipidemia, unspecified Past heart attack Chronic GERD Other specified disorder of gallbladder Diabetes CAD (coronary atherosclerotic disease) Cancer Surgical History Surgical History H/O thyroidectomy Family History Family History Mother Asthma Hypertension Father Hypertension Sibling Diabetes mellitus Social History Social History Smoking status: Never smoker Alcohol intake: never Alcohol use details: 1 drink monthly Substance use: never Substance use type: does not use Living arrangements: with family Occupation/Education: retired Gender identity (if verbalized by the patient): Female Spiritual care concerns: No Agree to blood products: Yes Meds Home Medications and Allergies Home Medications ?Medication ?Instructions ?Recorded ?Confirmed ?Type alirocumab 150 mg/mL subcutaneous 150 mg subcut USEASDIRECTD 04/23/23 04/04/25 History pen injector (Praluent Pen) aspirin 81 mg tablet 81 mg PO HS 04/23/23 04/04/25 History benazepril 20 mg tablet 20 mg PO DAILY 04/23/23 04/04/25 History coQ10 (ubiquinol) 200 mg capsule 200 mg PO DAILY 04/23/23 04/04/25 History levothyroxine 100 mcg tablet 100 mcg PO DAILY 04/23/23 04/04/25 History metoprolol tartrate 50 mg tablet 50 mg PO BID 04/23/23 04/11/25 History magnesium 200 mg tablet 500 mg PO DAILY 03/22/25 04/04/25 History metformin 500 mg tablet,extended 1,000 mg PO BIDWM 03/22/25 04/04/25 History release 24 hr omeprazole 20 mg capsule,delayed 20 mg PO DAILY PRN acid reflux 03/22/25 04/04/25 History release vitamin B12 500 mcg-folic acid 400 1 tablet PO .tuesdays03/22/25 04/04/25 History mcg tablet ketoconazole 2 % topical cream 1 applic topical DAILY PRN rash #3 04/04/25 04/04/25 Rx tubes oxybutynin chloride 5 mg 5 mg PO DAILY #90 tabs 04/04/25 04/04/25 Rx tablet,extended release 24 hr semaglutide 0.25 mg or 0.5 mg (2 0.5 mg subcut WEEKLY 04/04/25 04/11/25 History mg/3 mL) subcutaneous pen injector (Baby Blendy) tacrolimus 0.1 % topical ointment 1 applic topical BID #3 tubes 04/04/25 04/04/25 Rx (Protopic) Allergies Allergy/AdvReac Type Severity Reaction Status Date / Time Ozkfsuz-XHO-AnH Reductase AdvReac Severe SEVERE LEG Verified 04/11/25 07:36 Inhibitor (Vjwkghu-Smv-Ibe CRAMPS Reductase Inhibitor) exenatide AdvReac Unknown POOR Verified 04/11/25 07:36 APPETITE, NAUSEA Vital Signs Vital Signs - 24 hr 04/11/25 07:38 Temperature 97.2 F L Pulse Rate 78 Respiratory Rate 18 Blood Pressure 116/78 Pulse Oximetry 100 Oxygen Delivery Room Air Exam Const: General: cooperative and healthy appearing Resp: Effort & Inspection: normal respiratory effort and able to speak in complete sentences Auscultation: clear to auscultation bilaterally Cardio: Rate: regular rate Rhythm: regular rhythm GI: Inspection: normal to inspection GI Palp: No No hepatosplenomegaly present Auscultation: normal bowel sounds Rectal Exam: deferred Skin: General skin exam: normal color Psych: Appearance: grossly normal Mental Status: mental status grossly normal Assessment and Plan Assessment and plan (1) Dyspepsia: Code(s): R10.13 - Epigastric pain Status: Acute Assessment and Plan: The patient is deemed a good candidate for the procedure. Consent signed. Will proceed.
--- NOTE | 2025-04-11 08:26 | WPDANESEPPF ---
Anes - Initial Pre Proc Eval Procedure: Operation Date: 04/11/25 08:45 Proposed Procedures p Esophagogastroduodenoscopy - Gregorio Wolfe MD Date/Time: 04/11/25 08:26 Surgeon: Gregorio Wolfe MD Pre Op Diagnosis: Gastroparesis Patient Data Age: 74 Gender: F Height: 1.65 m Weight: 97.1 kg Last Vital Signs Temp 97.2 F L 04/11/25 07:38 Pulse 78 04/11/25 07:38 Resp 18 04/11/25 07:38 BP 116/78 04/11/25 07:38 Pulse Ox 100 04/11/25 07:38 O2 Del Method Room Air 04/11/25 07:38 Allergies Allergy/AdvReac Type Severity Reaction Status Date / Time Jtqenuc-HXN-QjA Reductase AdvReac Severe SEVERE LEG Verified 04/11/25 07:36 Inhibitor (Gfzmzag-Aaa-Rsg CRAMPS Reductase Inhibitor) exenatide AdvReac Unknown POOR Verified 04/11/25 07:36 APPETITE, NAUSEA Home Medications ?Medication ?Instructions ?Recorded ?Confirmed ?Type alirocumab 150 mg/mL subcutaneous 150 mg subcut USEASDIRECTD 04/23/23 04/04/25 History pen injector (Praluent Pen) aspirin 81 mg tablet 81 mg PO HS 04/23/23 04/04/25 History benazepril 20 mg tablet 20 mg PO DAILY 04/23/23 04/04/25 History coQ10 (ubiquinol) 200 mg capsule 200 mg PO DAILY 04/23/23 04/04/25 History levothyroxine 100 mcg tablet 100 mcg PO DAILY 04/23/23 04/04/25 History metoprolol tartrate 50 mg tablet 50 mg PO BID 04/23/23 04/11/25 History magnesium 200 mg tablet 500 mg PO DAILY 03/22/25 04/04/25 History metformin 500 mg tablet,extended 1,000 mg PO BIDWM 03/22/25 04/04/25 History release 24 hr omeprazole 20 mg capsule,delayed 20 mg PO DAILY PRN acid reflux 03/22/25 04/04/25 History release vitamin B12 500 mcg-folic acid 400 1 tablet PO .tuesdays03/22/25 04/04/25 History mcg tablet ketoconazole 2 % topical cream 1 applic topical DAILY PRN rash #3 04/04/25 04/04/25 Rx tubes oxybutynin chloride 5 mg 5 mg PO DAILY #90 tabs 04/04/25 04/04/25 Rx tablet,extended release 24 hr semaglutide 0.25 mg or 0.5 mg (2 0.5 mg subcut WEEKLY 04/04/25 04/11/25 History mg/3 mL) subcutaneous pen injector (Ozempic) tacrolimus 0.1 % topical ointment 1 applic topical BID #3 tubes 04/04/25 04/04/25 Rx (Protopic) Laboratory Tests 04/11/25 07:48 POC Capillary Glucose 98 mg/dl (65-105) Patient hx anesthesia problems: none Family hx anesthesia problems: none Results Review: All pre-operative results and documents have been reviewed as part of the pre-operative evaluation. [facility] Past Medical History Medical History Disorder of thyroid HTN (hypertension) Hyperlipidemia, unspecified Past heart attack Chronic GERD Other specified disorder of gallbladder Diabetes CAD (coronary atherosclerotic disease) Cancer Surgical History Surgical History H/O thyroidectomy Family History Family History Mother Asthma Hypertension Father Hypertension Sibling Diabetes mellitus Social History Social History Smoking status: Never smoker Alcohol intake: never Alcohol use details: 1 drink monthly Substance use: never Substance use type: does not use Living arrangements: with family Occupation/Education: retired Gender identity (if verbalized by the patient): Female Spiritual care concerns: No Agree to blood products: Yes Anes - Eval Final PreProcedure Day of Procedure 04/11/25 08:26 Patient weight: obese Lungs: normal air movement Airway: Mallampati scale class II and special considerations (Missing several teeth on lower aspect. ) Neurological: alert and oriented Last oral intake: >/= 8 hours ASA classification: III Emergent: no Anesthetic plan: proceed Anesthesia type and monitoring: general GIVS and standard monitoring Results Review: All pre-operative results and documents have been reviewed as part of the pre-operative evaluation. HTN, hyperlipidemia, GERD, hx of PTCA 2012 w no cp or sob. Pt saw her high man this year without change to meds. Pt had prev EGD w retained food, now has been on clears for 2 full days. Informed Consent: The patient's anesthetic plan and its attendant risks and benefits were discussed with the patient/family/POA. Questions were solicited and answers provided to the satisfaction of the patient/family/POA.
--- NOTE | 2025-04-11 08:35 | S_PTH ---
PATIENT: Princess Pham LOC: [facility] U#:[id number] AGE/SX: 74/F ROOM: RE04/11/[address]: Gregorio Wolfe MD : 1950 BED: DIS: 04/11/2025 SPEC #: [id number] RECD: 04/11/25 09:53 STATUS: LAURY REQ #: [id number] TRACY: 04/11/25 08:[address]: Gregorio Wolfe DEPT: [facility] Surgical RECD BY: Cha Barrera ENTERED: 04/11/25 09:53 SP TYPE: Surgical OTHR DR: Floresita Leon APRN Tissues: A - Gastric Biopsy B - Gastric Biopsy Procedures: Hematoxylin and Eosin Stain Gross and Microscopic Level 4
[2025-04-11 08:41] VITALS: BP 84/54; PULSE 89; RESP 18; O2SAT 100
[2025-04-11 08:51] VITALS: BP 106/46; PULSE 97; RESP 18; O2SAT 100
[2025-04-11 09:01] VITALS: BP 110/70; PULSE 81; RESP 18; O2SAT 100
== END 2025-04-11 09:06 | disposition home or self-care (01) ==
PROVIDERS: PCP Nurse Practitioner Adult Health; Visit Provider Internal Medicine Gastroenterology
PROC: 0DJ08ZZ Inspection of Upper Intestinal Tract, Via Natural or Artificial Opening Endoscopic (ICD-10-PCS; CPT 43239; principal; 2025-04-11 08:45)
DX: K29.50 Unspecified chronic gastritis without bleeding (principal); E66.9 Obesity, unspecified; Z68.35 Body mass index [BMI] 35.0-35.9, adult
CPT/HCPCS: 43239; 82948; 88305; J2003; J2704; J7120